=== PATIENT | male | born 1950 | race Caucasian/White ===

== ENCOUNTER 2020-06-29 11:59 | Outpatient (REF) | payer MEDICARE, MEDICAID, SELFPAY ==
[2020-06-29 12:58] LABS: Hematocrit 42.1 % (42-52); Hemoglobin 13.9 g/dl (14.0-18.0); Mean Corpuscular Hemoglobin 28.9 pg (27.0-33.0); Mean Corpuscular Volume 87.5 fL (80-98); Mean Platelet Volume 10.8 fL (9.4-12.4); Platelet Count 201 X10*3/uL (160-400); Red Blood Count 4.81 X10*6/uL (4.60-5.80); Red Cell Distribution Width 12.3 % (11.0-16.0); White Blood Count 7.9 X10*3/uL (4.8-10.8)
[2020-06-29 13:32] LABS: Alanine Aminotransferase < 6 U/L (0-40); Alkaline Phosphatase 55 U/L (39-117); Anion Gap 9 (12-20); Aspartate Amino Transferase 12 U/L (5-37); Bilirubin Direct 0.2 mg/dL (0.0-0.5); Bilirubin Total 0.4 mg/dL (0.0-1.0); Blood Urea Nitrogen 15 mg/dL (9-16); Calcium 8.7 mg/dL (8.4-10.2); Carbon Dioxide 30 mmol/L (22-29); Chloride 102 mmol/L (96-108); Cholesterol 166 mg/dL; Estimated Glomerular Filt Rate > 60; Glucose Random 77 mg/dL (60-115); HDL Cholesterol 41 mg/dL; LDL Cholesterol Calculated 105 mg/dl; Potassium 4.4 mmol/l (3.3-5.1); Sodium 137 mmol/L (135-145); Total Protein 6.3 g/dL (6.5-8.0); Triglycerides 104 mg/dL
== END 2020-06-29 12:00 | disposition home or self-care (01) ==
LOC: HO.LAB 11:59
PROVIDERS: PCP Internal Medicine; Visit Provider Internal Medicine
DX: G20 Parkinson's disease (principal)
CPT/HCPCS: 36415; 80048; 80061; 80076; 85027

== ENCOUNTER 2020-08-07 17:44 | Outpatient (REF) | payer MEDICARE, MEDICAID, SELFPAY | END 2020-08-07 17:45 | disposition home or self-care (01) | LOC: HO.LNP 17:44 | PROVIDERS: Visit Provider Family Medicine | DX: Z20.828 Contact with and (suspected) exposure to other viral communicable diseases (principal) | CPT/HCPCS: U0003 ==

== ENCOUNTER 2020-09-11 | Outpatient (REF) | payer MEDICARE, MEDICAID, SELFPAY ==
[2020-09-13 08:52] LABS: FIT1 NEGATIVE (NEGATIVE); FIT2 POSITIVE (NEGATIVE)
[2020-09-13 08:53] LABS: FIT Int Ctl YES
== END 2020-09-11 00:01 | disposition home or self-care (01) ==
LOC: HO.LNP
PROVIDERS: Visit Provider Internal Medicine Gastroenterology
DX: Z12.11 Encounter for screening for malignant neoplasm of colon (principal)
CPT/HCPCS: 82274

== ENCOUNTER → 2020-09-14 10:56 | Outpatient (BNVA) | payer MEDICARE, MEDICAID, SELFPAY | PROVIDERS: PCP Internal Medicine; Visit Provider Internal Medicine Gastroenterology | DX: Z13.89 Encounter for screening for other disorder (principal) | CPT/HCPCS: Q3014 ==

== ENCOUNTER 2020-10-10 10:27 | Day surgery (SDC) | payer MEDICARE, MEDICAID, SELFPAY ==
[2020-10-03 16:04] VITALS: BMI 34.5
--- NOTE | 2020-10-06 11:34 | HO.ANESPROP2 ---
Documented by User: Britta Shira 10/06/20 11:36 HPI - Anesthesia Eval Consult details Narrative: 70yo M for Upper Endoscopy and Colonoscopy [facility] Active Problems Active Problems: All Active Problems (Updated 10/03/20 @ 16:06 by Jenelle Gallardo) Close exposure to 2019 novel coronavirus (Acute) Chronic constipation (Acute) Colon cancer screening (Acute) Positive FIT (fecal immunochemical test) (Acute) Low back pain (Acute) Impotence (Acute) Anxiety and depression (Acute) Skin rash (Acute) Peripheral neuropathy (Acute) GERD (gastroesophageal reflux disease) (Acute) Past Medical History Medical History (Updated 10/07/20 @ 11:24 by Ventura Multani MD) Anxiety and depression Arthritis GERD (gastroesophageal reflux disease) History of alcohol abuse Hx of subdural hematoma Impotence Parkinson disease Peripheral neuropathy Sciatic pain Skin rash Tension headache Family History Family History Father Diabetes H/O heart bypass surgery Depression Mother Heart problem Depression Brother Hypertension Maternal Uncle Alcoholism Surgical History Surgical History (Updated 10/03/20 @ 14:01 by Jenelle Gallardo) History of bilateral cataract extraction History of DVT (deep vein thrombosis) History of inguinal hernia repair History of umbilical hernia repair Hx of colonoscopy Social History Social History Are you a primary managed care manager to a significant other at home: No Do you presently have visiting nurse or other home services: No Alcohol intake: former Year quit: 2017 Smoking Status: Never smoker Use of substances other than those prescribed or required for medical reasons: No Have you been hit, kicked, punched, or otherwise hurt by someone within the past year? If so, by whom?: No Advance Directives: No Advance Directives Information Provided: No Advance Directives on File: No Recently lost weight without trying: No Meds Allergies Allergy/AdvReac Type Severity Reaction Status Date / Time benztropine [Cogentin] AdvReac Unknown dizziness Verified 10/07/20 11:13 Home Medications Medication Instructions Recorded Confirmed Last Taken Type carbidopa 25 mg-levodopa 100 mg 1 tab PO TID 07/07/20 10/07/20 Unknown History tablet carbidopa ER 50 mg-levodopa 200 mg 1 tab PO TID 07/07/20 10/07/20 Unknown History tablet,extended release cyclobenzaprine 5 mg PO BID PRN 10/03/20 10/07/20 Unknown History pramipexole 0.75 mg tablet 0.75 mg PO TID tab 10/03/20 10/03/20 Unknown History Exam Exam Date and Time: October 06, 2020 1134 Height,Weight and Vital Signs: Height 6 ft Weight 115.666 kg Pertinent Lab Results Pertinent Lab Results: Laboratory Tests 06/29/20 06/29/20 12:15 12:15 WBC 7.9 Hgb 13.9 L Hct 42.1 Plt Count 201 Sodium 137 Potassium 4.4 Chloride 102 Carbon Dioxide 30 H BUN 15 Creatinine 1.07 Assessment and Plan Assessment Anesthesia Assessment: Chart Reviewed Documented by User: Divya Anti 10/10/20 11:19 [facility] Past Medical History Medical History (Updated 10/07/20 @ 11:24 by Ventura Multani MD) Anxiety and depression Arthritis GERD (gastroesophageal reflux disease) History of alcohol abuse Hx of subdural hematoma Impotence Parkinson disease Peripheral neuropathy Sciatic pain Skin rash Tension headache Family History Family History Father Diabetes H/O heart bypass surgery Depression Mother Heart problem Depression Brother Hypertension Maternal Uncle Alcoholism Surgical History Surgical History (Updated 10/03/20 @ 14:01 by Jenelle Gallardo) History of bilateral cataract extraction History of DVT (deep vein thrombosis) History of inguinal hernia repair History of umbilical hernia repair Hx of colonoscopy Social History Social History Are you a primary managed care manager to a significant other at home: No Do you presently have visiting nurse or other home services: No Alcohol intake: former Year quit: 2016 Smoking Status: Never smoker Use of substances other than those prescribed or required for medical reasons: No Have you been hit, kicked, punched, or otherwise hurt by someone within the past year? If so, by whom?: No Advance Directives: No Advance Directives Information Provided: No Advance Directives on File: No Recently lost weight without trying: No Meds Allergies Allergy/AdvReac Type Severity Reaction Status Date / Time benztropine [Cogentin] AdvReac Unknown dizziness Verified 10/07/20 11:13 Home Medications Medication Instructions Recorded Confirmed Last Taken Type carbidopa 25 mg-levodopa 100 mg 1 tab PO TID 07/07/20 10/07/20 Unknown History tablet carbidopa ER 50 mg-levodopa 200 mg 1 tab PO TID 07/07/20 10/07/20 Unknown History tablet,extended release cyclobenzaprine 5 mg PO BID PRN 10/03/20 10/07/20 Unknown History pramipexole 0.75 mg tablet 0.75 mg PO TID tab 10/03/20 10/03/20 Unknown History Exam Airway Mallampati Class: II (Edentulous) TM Dist: >3cm Neck ROM: Limited Denture: Upper and Lower Loose/Missing/Broken Teeth: Yes, Upper and Lower Heart: RRR Lungs: CTA Assessment and Plan Assessment Anesthesia Assessment: Anesthesia Plan Discussed and Chart Reviewed Final Anesthetic Review NPO: Yes ASA Class: III Final Preanesthetic Review: Meds/Allgs Chart Reviewed, Consent Obtained/Reviewed and Anes Risks/Benef Reviewed Patient Risk: Intermediate Procedure Risk: Intermediate Anesthetic Plan Anesthetic Plan: MAC: Disposition: Standard PACU
[2020-10-10 10:39] VITALS: BP 153/88; PULSE 91; RESP 18; TEMP 37.1; O2SAT 96; BMI 38.0
--- NOTE | 2020-10-10 11:00 | W.PM.OPN ---
Operative Note Operative Note Date of Service: 10/10/20 Narrative: Pre-op diagnosis: Colon cancer screening, Positive FIT test, chronic constipation, GERD, Post-op diagnosis: other (Erosive esophagitis, hiatal hernia, gastritis, hemorrhoids) Procedure: FLEXIBLE TRANSORAL UPPER GASTROINTESTINAL ENDOSCOPY WITH BIOPSIES AND COLONOSCOPY TILL HEPATIC FLEXURE UPPER ENDOSCOPY Consent: Indications for the procedure and potential complications of bleeding, perforation, reaction to medications and missed diagnosis were discussed with the patient and informed consent was obtained. Instrument: Olympus GIF H 190 mid size upper endoscope Monitoring: Vital signs and clinical assessment, continuous EKG monitoring, Pulse oximetry, Carbon Dioxide monitoring and blood pressure monitoring were done throughout the procedure. Procedure: The patient was placed in the left lateral decubitis position and pre-procedure medications were administered and a bite block was placed. The endoscope was inserted into the mouth and advanced under direct vision to the third part of duodenum. A careful inspection was made as the upper endoscope was withdrawn including a retroflexed examination of the proximal stomach; Findings and interventions are described below. Findings: Larynx: Normal Esophagus: Grade 3-4 erosive esophagitis from 32 to 42 cms. GE junction at 42 cms, hiatal hernia 42 to 44 cms. Stomach: Moderate diffuse gastric erythema. Biopsies were obtained from the gastric body and antrum. Grade 3 flap valve on retroflexed examination of the cardia. Duodenum: Normal bulb and descending duodenum Intervention: Biopsies as noted above COLONOSCOPY PROCEDURE NOTE Consent: Indications for the procedure and potential complications of bleeding, perforation, reaction to medications and missed diagnosis were discussed with the patient and informed consent was obtained. Instrument: Olympus PCF H 190 L variable stiffness pediatric colonoscope Monitoring: Vital signs and clinical assessment, intermittent blood pressure monitoring, continuous EKG monitoring, Pulse oximetry and Carbon Dioxide monitoring were done throughout the procedure. Colon withdrawl time was 15 minutes. Procedure: The patient was placed in the left lateral decubitis position and pre-procedure medications were administered. After a digital rectal examination of the ano-rectum, the video colonoscope was inserted into the rectum and advanced through the colon to the hepatic flexure. It was not possible to advance further due to poor prep with liquid and semi-solid stool blocking the lumen. The colonoscope was slowly withdrawn in a retrograde panoramic fashion and the colon mucosa was carefully examined including a retroflexed view of the rectum. Findings and interventions are described below. Procedure Difficulty: : Without difficulty Findings: Terminal Ileum: Not evaluated Cecum: Not evaluated due to poor prep Ascending Colon: Not evaluated due to poor prep Transverse Colon: Partially evaluated Descending Colon: Partially evaluated Sigmoid Colon: Partially evaluated Rectum: Partially evaluated Ano-rectum: Moderate internal hemorrhoids Colon preparation: Fair to poor. 60-65% of the mucosa was visualized. Impression and Post Procedure Diagnosis: Endoscopy Findings: ESOPHAGUS: Grade 3-4 erosive esophagitis from 32 to 42 cms. GE junction at 42 cms, hiatal hernia 42 to 44 cms. STOMACH: Diffuse moderate gastritis Colonoscopy Findings: No polyps were detected. Moderate hemorrhoids on retroflexed exam. Plan: Await pathology results Start Omeprazole 20 mg twice daily and stop Famotidine. Patient has an appointment on 10/16/20 in the GI Clinic with Gaurang Ackerman M.D. Repeat EGD in 3 months to FU on erosive esophagitis. I will schedule same day colonoscopy with 2 day prep and adult colonoscope due to poor prep. Above findings were reviewed with the patient and GERD handout was given in the discharge area Surgeon: Gaurang Ackerman MD Anesthesia: MAC (DIRECTOR INDUSTRIAL RELATIONS Cuff) Estimated blood loss (mL): 0 Pathology: other (a: gastric antrum bx's r/o h. pylori b: gastric body bx's) Condition: stable Disposition: PACU
--- NOTE | 2020-10-10 11:00 | MHC.SHP ---
Pre-Procedural Eval Section A The patient is an INPATIENT: No The History & Physical has been completed within 30 days and I have reviewed it.: No Section B Chief Complaint: screening,reflux disease Details of Present Illness: Trying to control constipation with diet - apples, spinach and broccoli. Having problems with GERD - has frequent hearburn and some regurgitation on bending. Feels it in his throat. Increased symptoms at night. Has been eating too much chocolate - has compulsion to eat at night. Takes TUMS occasionally. Relevant Family History (Specify if Yes): No Relevant Social History: Alcohol Use (past ETOH use, quitted in 2017) Present Medications: see Short Stay Collaborative assessment Medical History: Significant History (Anxiety and depression GERD (gastroesophageal reflux disease) Impotence Peripheral neuropathy Skin rash) History of Previous Operations: Relevant previous surgery/procedure and date(s) (History of DVT (deep vein thrombosis) History of inguinal hernia repair History of umbilical hernia repair) Allergies: Allergies Allergy/AdvReac Type Severity Reaction Status Date / Time benztropine [Cogentin] AdvReac Unknown dizziness Verified 10/07/20 11:13 Review of Systems Sugical H&P ROS: Negative: Constitution, Cardiovascular and Respiratory and Yes, Specify: Gastrointestinal (GERD, constipation) Exam Surgical H&P Exam: Normal: Heart, Normal: Lungs, Normal: Extremities and Normal: Abdomen Plan Diagnosis/Plan: Unchanged I have reviewed the history and physical and performed a pertinent physical examination on my patient. No changes have occurred unless specified.
--- NOTE | 2020-10-10 11:10 | PC.NURSE ---
VSS. PATIENT HAD AN ENEMA AND RESULTS WERE YELLOWISH CLEAR.
[2020-10-10] MEDS: Lactated Ringers 1,000 ML 50 ML IVCONT (11:23)
[2020-10-10] MEDS: Sodium Phosphate,Mono-Dibasic 133 ML ENEMA PR (11:27)
[2020-10-10 12:27] VITALS: BP 138/71; PULSE 77; RESP 20; TEMP 36.4; O2SAT 98
[2020-10-10 12:48] VITALS: BP 163/94; PULSE 85; RESP 18; TEMP 36.4; O2SAT 97
[2020-10-10 13:04] VITALS: BP 177/89; PULSE 85; RESP 16; TEMP 36.4; O2SAT 97
== END 2020-10-10 13:30 | disposition home or self-care (01) ==
PROVIDERS: PCP Internal Medicine; Visit Provider Internal Medicine Gastroenterology
PROC: (CPT 43239; principal; 2020-10-10 11:40)
DX: Z12.11 Encounter for screening for malignant neoplasm of colon (principal); K59.09 Other constipation; K64.8 Other hemorrhoids; K22.10 Ulcer of esophagus without bleeding; K29.70 Gastritis, unspecified, without bleeding; K44.9 Diaphragmatic hernia without obstruction or gangrene; K21.9 Gastro-esophageal reflux disease without esophagitis; Z88.8 Allergy status to other drugs, medicaments and biological substances; Z91.19 Patient's noncompliance with other medical treatment and regimen
CPT/HCPCS: 43239; G0121; 88305; 88342

== ENCOUNTER → 2020-10-16 14:07 | Outpatient (BNVA) | payer MEDICARE, MEDICAID, SELFPAY | PROVIDERS: PCP Internal Medicine; Visit Provider Internal Medicine Gastroenterology | CPT/HCPCS: Q3014 ==

== ENCOUNTER → 2020-11-24 09:25 | Outpatient (BNVA) | payer MEDICARE, MEDICAID, SELFPAY | PROVIDERS: Visit Provider Urology | DX: N52.9 Male erectile dysfunction, unspecified (principal); N43.3 Hydrocele, unspecified | CPT/HCPCS: 99202 ==

== ENCOUNTER 2020-12-29 12:00 | Outpatient (RCR) | payer MEDICARE, MEDICAID, SELFPAY ==
--- NOTE | 2020-10-17 12:27 | MHC.PT.EP ---
[facility] [place] [facility] [place] Office [place] Office [address] Shara Booth [address] [phone] F: [phone] F: [phone] F: [phone] F: [phone] Physical Therapy Plan of Care Date of Evaluation: 10/17/20 Date of Surgery: Diagnosis: Low back pain w/ radiating symptoms down the left leg Assessment: Pt is a 70 y/o male referred to skilled PT for low back pain. Pt reports left sided buttocks pain with occasional radiating pain into the left lateral leg and foot. Assessment reveals impaired lumbar and hip range of motion, decreased thoracolumbar spinal mobility, decreased strength, impaired posture, gait deviations, balance deficits, and muscle length deficits. Related functional limitations include: difficulty sleeping, standing/walking/sitting for an extended period of time, transitioning from sit<>stand after sitting for an extended period of time, and performing functional squats. Pt will benefit from skilled PT services 2x/week for 5 weeks in order to reduce impairments and improve limitations. Frequency and Duration: The patient will be seen 2x/week for 5 weeks Short Term Goals: -In 2 weeks, Pt to improve HS length by at least 10 degrees. -In 3 weeks, Pt to improve L hip ER ROM by at least 8 degrees. Shelter Goals: -In 4 weeks, Pt to self report at least 50% improvement from baseline. -In 5 weeks, Pt to demonstrate I w/ HEP. Treatment Plan: Modalities to reduce pain, spasms and effusion. Manual therapy to restore motion and function. Therapeutic exercise to improve strength and flexibility. Neuromuscular re-education for posture and balance. Therapeutic activities to return to functional activities of daily living. Electronically signed by: Yaz Gage PT, DPT Please sign and return to therapist. Thank you for your referral.
--- NOTE | 2020-12-29 14:29 | MHC.PT.DC ---
[facility] [place] Office [place] Office [place] Office [address] Shara Booth [address] [facility] [phone] F: [phone] F: [phone] F: [phone] F: [phone] Physical Therapy Discharge Report Diagnosis: Low back pain w/ radiating symptoms down the left leg Date of Surgery: Date of Evaluation: 10/17/20 Date of Discharge: 12/29/20 Treatments to Date: 16 Cancellations to Date: 0 No Shows to Date: 0 Discharge Status: Achieved Goals Improved Function Independent with HEP Discharge Summary: Evelio has completed 16 PT visits at this time. He presented with increased postural awareness today, increased balance compared to IE. He is independent with all HEPs and is able to manage his symptoms with them. Pt therefore d/c from therapy today. Electronically signed by: Eri Finn, PT, DPT Please sign and return to therapist. Thank you for your referral.
== END 2020-12-29 14:30 | disposition other institution (70) ==
LOC: HO.PT 12:00
PROVIDERS: PCP Internal Medicine; Visit Provider Internal Medicine
DX: M54.5 Low back pain (principal)
CPT/HCPCS: 97110; 97112; 97140; 97162; 97530

== ENCOUNTER → 2021-02-23 11:19 | Outpatient (BNVA) | payer MEDICARE, MEDICAID, SELFPAY | PROVIDERS: PCP Internal Medicine; Visit Provider Urology | DX: N52.9 Male erectile dysfunction, unspecified (principal); N43.3 Hydrocele, unspecified; R32 Unspecified urinary incontinence; G20 Parkinson's disease; F10.11 Alcohol abuse, in remission | CPT/HCPCS: 51798; 99212 ==

== ENCOUNTER 2021-03-12 04:27 | Inpatient (IN) | payer MEDICARE, MEDICAID, SELFPAY ==
[2021-03-12] VITALS (14 sets, daily range): BP systolic 123–177; BP diastolic 59–94; PULSE 75–96; RESP 14–20; TEMP 36–37.3; O2SAT 93–99; BMI 35.3
--- NOTE | ~2021-03-12 | US_ITS ---
EXAMINATION: US ABDOMEN LIMITED CLINICAL INFORMATION: Right upper quadrant pain, rule out cholecystitis. COMPARISON: None TECHNIQUE: Real-time imaging of the right upper quadrant abdominal viscera. FINDINGS: PANCREAS: Visualized portions unremarkable. LIVER: Unremarkable. GALLBLADDER: Multiple gallstones measuring up to 1.8 cm. Minimal mural thickening and pericholecystic fluid. COMMON BILE DUCT: Normal in caliber measuring 0.8 cm in diameter. RIGHT KIDNEY: 10.9 cm. Unremarkable. FREE FLUID: None. US/US abdomen limited IMPRESSION: Cholelithiasis without evidence for mild acute/developing cholecystitis.
[2021-03-12 05:59] LABS: Basophils Percent Auto 0.2 % (0-2); Eosinophils Absolute Auto 0.2 X10*3/uL (0.0-0.4); Eosinophils Percent Auto 1.9 % (0-4); Hematocrit 43.8 % (42-52); Hemoglobin 14.4 g/dl (14.0-18.0); Imm Gran Abs Auto 0.04 X10*3/uL (0.00-0.03); Imm Gran Pct Auto 0.4 % (0.0-0.4); Lymphocytes Absolute Auto 0.8 X10*3/uL (1.2-4.9); Lymphocytes Percent Auto 8.7 % (20-40); MANUAL DIFF FLAG NO; Mean Corpuscular HGB Conc 32.9 g/dl (31.0-36.0); Mean Corpuscular Hemoglobin 27.6 pg (27.0-33.0); Mean Corpuscular Volume 83.9 fL (80-98); Mean Platelet Volume 10.7 fL (9.4-12.4); Monocytes Absolute Auto 0.5 X10*3/uL (0.1-1.2); Monocytes Percent Auto 5.5 % (2-11); Neutrophils Absolute Auto 7.8 X10*3/uL (2.0-8.3); Neutrophils Percent Auto 83.3 % (45-73); Platelet Count 149 X10*3/uL (160-400); Red Blood Count 5.22 X10*6/uL (4.60-5.80); Red Cell Distribution Width 12.1 % (11.0-16.0); White Blood Count 9.4 X10*3/uL (4.8-10.8)
[2021-03-12 06:24] LABS: Alanine Aminotransferase 30 U/L (0-40); Albumin Level 4.1 g/dL (3.5-5.0); Alkaline Phosphatase 137 U/L (39-117); Anion Gap 11 (12-20); Aspartate Amino Transferase 379 U/L (5-37); Bilirubin Direct 1.9 mg/dL (0.0-0.5); Bilirubin Total 2.9 mg/dL (0.0-1.0); Blood Urea Nitrogen 15 mg/dL (9-16); Calcium 9.5 mg/dL (8.4-10.2); Carbon Dioxide 27 mmol/L (22-29); Chloride 104 mmol/L (96-108); Estimated Glomerular Filt Rate > 60; Glucose Random 131 mg/dL (60-115); Lipase 29 U/L (8-78); Potassium 4.7 mmol/L (3.3-5.1); Sodium 137 mmol/L (135-145); Total Protein 6.7 g/dL (6.5-8.0)
--- NOTE | 2021-03-12 06:58 | ED.ABDPAIN ---
HPI - Abdominal Pain General Chief Complaint: Abdominal Pain Stated Complaint: ABD PAIN Time Seen by Provider: 03/12/21 06:43 Source: patient Mode of arrival: ambulatory Limitations: no limitations History of Present Illness HPI narrative: Patient comes emergency room complaining of 18 hours of right upper quadrant pain. Patient states that initially he had intermittent pain in the right upper quadrant for about 9 hours, then it became constant for last 9 hours. Patient denies vomiting or diarrhea, states he is chronically constipated due to his history of Parkinson's. Patient denies fever or chills. Last time patient ate was yesterday at 21:00 Related Data Home Medications Medication Instructions Recorded Confirmed carbidopa 25 mg-levodopa 100 mg 1 tab PO TID 07/07/20 03/12/21 tablet carbidopa ER 50 mg-levodopa 200 mg 1 tab PO TID 07/07/20 03/12/21 tablet,extended release pramipexole 0.75 mg tablet 0.75 mg PO TID tab 10/03/20 03/12/21 tadalafil 10 mg PO DAILY PRN 03/12/21 03/12/21 Previous Rx's Medication Instructions Recorded fluoxetine 40 mg capsule 40 mg PO DAILY #90 cap 10/03/20 omeprazole 20 mg capsule,delayed 20 mg PO DAILY #90 cap 12/21/20 release meloxicam 15 mg tablet 15 mg PO DAILY #30 tab 12/28/20 bupropion HCl 150 mg 24 hr tablet, 150 mg PO BID 90 Days #180 tab 02/21/21 extended release sildenafil 100 mg tablet 100 mg PO DAILY PRN 30 Days #30 tab 02/23/21 diazepam 5 mg tablet 5 mg PO TID PRN 30 Days #90 tab 03/09/21 Allergies Allergy/AdvReac Type Severity Reaction Status Date / Time benztropine [Cogentin] AdvReac Unknown dizziness Verified 12/26/20 12:55 Review of Systems Review of Systems Constitutional : No Weight loss, No Fever, No Chills, No Night Sweats, No Fatigue, No Malaise ENT/Mouth : No Hearing loss, No Ear Pain, No Nasal Congestion, No Sinus Pain, No Hoarseness, No sore throat, No Rhinorrhea, No Swallowing Difficulty Eyes: No Eye Pain, No Swelling, No Redness, No Foreign Body, No Discharge, No Vision Changes Cardiovascular : No Chest Pain, No SOB, No Dyspnea on Exertion, No Orthopnea, No Edema, No Palpitations Respiratory : No Cough, No Sputum, No Wheezing, No Smoke Exposure, No Dyspnea Gastrointestinal : No Nausea, No Vomiting, No Diarrhea, No Constipation, complaining of right upper quadrant pain, No Hematochezia, No Melena Genitourinary : no irregular bleeding, No Dysuria, No Urinary Frequency, No Hematuria, No Urinary Incontinence, No Urgency, No Flank Pain, No Urinary Flow Changes, No Hesitancy Musculoskeletal : No joint pain, No Myalgias, No Joint Swelling Skin : No Skin Lesions, No rash Neuro : No Weakness, No Numbness, No Paresthesias, No Loss of Consciousness, No Dizziness, No Headache Psych : No Anxiety/Panic, No Depression, No SI/HI/AH/VH, No Social Issues, Heme/Lymph: No Bruising, No Bleeding,No Lymphadenopathy Endocrine : No Polyuria, No Polydipsia, No Temperature Intolerance Physical Exam Vital Signs: Vital Signs: Last Vital Signs Temp 98.0 F 03/12/21 05:18 Pulse 83 03/12/21 09:30 Resp 18 03/12/21 09:30 BP 169/84 H 03/12/21 09:30 Pulse Ox 98 03/12/21 09:30 Body Mass Index 35.3 Appearance: Alert. Oriented X3. No acute distress. Eyes: Pupils equal, round and reactive to light. ENT: Pharynx normal. Neck: Normal inspection. Neck supple. No lymph nodes noted. No crepitus CVS: Normal heart rate and rhythm. Pulses normal. Normal S1 and S2 Respiratory: No respiratory distress. Breath sounds normal. No Wheezing. No rales Abdomen: Soft, tenderness to palpation over the right upper quadrant, negative Douglas sign, no guarding, No rigidity. No distention Skin: Skin warm and dry. Normal skin color. Normal skin turgor. Extremities: No lower extremity edema. No lower extremity edema. No Lacerations. No Rash Neuro: Oriented X 3. No motor deficit. No sensory deficit. Moving all extermities. No slurred speech. Course Course Course Narrative: Despite the ultrasound read, I do believe that the patient has acute cholecystitis. Dr. Wilson being consulted. Patient received 1 dose of morphine, patient initially started feeling well but the pain returned to 8/10 within a few minutes. I discussed the patient with Dr. Wilson, patient will likely be going to the OR today MDM - Abdominal Pain Lab Data Result diagrams: 03/12/21 05:55 03/12/21 05:55 Labs: Lab Results 03/12/21 03/12/21 03/12/21 Range/Units 05:55 05:55 05:55 WBC 9.4 (4.8-10.8) X10*3/uL RBC 5.22 (4.60-5.80) X10*6/uL Hgb 14.4 (14.0-18.0) g/dl Hct 43.8 (42-52) % MCV 83.9 (80-98) fL MCH 27.6 (27.0-33.0) pg MCHC 32.9 (31.0-36.0) g/dl RDW 12.1 (11.0-16.0) % Plt Count 149 L D (160-400) X10*3/uL MPV 10.7 (9.4-12.4) fL Immature Gran % (Auto) 0.4 (0.0-0.4) % Neut % (Auto) 83.3 H (45-73) % Lymph % (Auto) 8.7 L (20-40) % [place] % (Auto) 5.5 (2-11) % Eos % (Auto) 1.9 (0-4) % Baso % (Auto) 0.2 (0-2) % Lymph # (Auto) 0.8 L (1.2-4.9) X10*3/uL [place] # (Auto) 0.5 (0.1-1.2) X10*3/uL Eos # (Auto) 0.2 (0.0-0.4) X10*3/uL Baso # (Auto) 0.0 (0.0-0.2) X10*3/uL Abs Immat Gran (auto) 0.04 H (0.00-0.03) X10*3/uL Absolute Neuts (auto) 7.8 (2.0-8.3) X10*3/uL Absolute Nucleated RBC 0.000 (0.0-0.012) X10*3/uL Nucleated RBC % (auto) 0.0 (0.0-0.2) /100WBC Sodium 137 (135-145) mmol/L Potassium 4.7 (3.3-5.1) mmol/L Chloride 104 (96-108) mmol/L Carbon Dioxide 27 (22-29) mmol/L Anion Gap 11 L (12-20) BUN 15 (9-16) mg/dL Creatinine 1.13 (0.5-1.4) mg/dL Estim Creat Clear Calc 83.0 Estimated GFR > 60 Random Glucose 131 H D (60-115) mg/dL Calcium 9.5 D (8.4-10.2) mg/dL Total Bilirubin 2.9 H (0.0-1.0) mg/dL Direct Bilirubin 1.9 H (0.0-0.5) mg/dL AST 379 H (5-37) U/L ALT 30 (0-40) U/L Alkaline Phosphatase 137 H D (39-117) U/L B-Natriuretic Peptide 47 (<100) pg/mL Total Protein 6.7 (6.5-8.0) g/dL Albumin 4.1 (3.5-5.0) g/dL Lipase 29 (8-78) U/L Urine Color Urine Appearance Urine pH (5.0-8.0) Ur Specific [place] (1.005-1.025) Urine Protein (NEG-TRACE) MG/DL Urine Glucose (UA) (NEG) MG/DL Urine Ketones (NEG) MG/DL Urine Blood (NEG) Urine Nitrite (NEG) Ur Leukocyte Esterase (NEG) 03/12/21 Range/Units 08:34 WBC (4.8-10.8) X10*3/uL RBC (4.60-5.80) X10*6/uL Hgb (14.0-18.0) g/dl Hct (42-52) % MCV (80-98) fL MCH (27.0-33.0) pg MCHC (31.0-36.0) g/dl RDW (11.0-16.0) % Plt Count (160-400) X10*3/uL MPV (9.4-12.4) fL Immature Gran % (Auto) (0.0-0.4) % Neut % (Auto) (45-73) % Lymph % (Auto) (20-40) % [place] % (Auto) (2-11) % Eos % (Auto) (0-4) % Baso % (Auto) (0-2) % Lymph # (Auto) (1.2-4.9) X10*3/uL [place] # (Auto) (0.1-1.2) X10*3/uL Eos # (Auto) (0.0-0.4) X10*3/uL Baso # (Auto) (0.0-0.2) X10*3/uL Abs Immat Gran (auto) (0.00-0.03) X10*3/uL Absolute Neuts (auto) (2.0-8.3) X10*3/uL Absolute Nucleated RBC (0.0-0.012) X10*3/uL Nucleated RBC % (auto) (0.0-0.2) /100WBC Sodium (135-145) mmol/L Potassium (3.3-5.1) mmol/L Chloride (96-108) mmol/L Carbon Dioxide (22-29) mmol/L Anion Gap (12-20) BUN (9-16) mg/dL Creatinine (0.5-1.4) mg/dL Estim Creat Clear Calc Estimated GFR Random Glucose (60-115) mg/dL Calcium (8.4-10.2) mg/dL Total Bilirubin (0.0-1.0) mg/dL Direct Bilirubin (0.0-0.5) mg/dL AST (5-37) U/L ALT (0-40) U/L Alkaline Phosphatase (39-117) U/L B-Natriuretic Peptide (<100) pg/mL Total Protein (6.5-8.0) g/dL Albumin (3.5-5.0) g/dL Lipase (8-78) U/L Urine Color YELLOW Urine Appearance CLEAR Urine pH 6.0 (5.0-8.0) Ur Specific [place] <= 1.005 (1.005-1.025) Urine Protein NEG (NEG-TRACE) MG/DL Urine Glucose (UA) NEG (NEG) MG/DL Urine Ketones NEG (NEG) MG/DL Urine Blood NEG (NEG) Urine Nitrite NEG (NEG) Ur Leukocyte Esterase NEG (NEG) Discharge Plan Discharge Clinical Impression: Acute cholecystitis Patient Disposition: Admitted As Inpatient [facility] Past Medical History Medical History Anxiety and depression Arthritis GERD (gastroesophageal reflux disease) History of alcohol abuse Hx of subdural hematoma Impotence Left hip pain Parkinson disease Peripheral neuropathy Sciatic pain Skin rash Tension headache Surgical History History of bilateral cataract extraction History of DVT (deep vein thrombosis) History of esophagogastroduodenoscopy (EGD) History of inguinal hernia repair History of umbilical hernia repair Hx of colonoscopy Family History Family History Father Diabetes H/O heart bypass surgery Depression Mother Heart problem Depression Brother Hypertension Maternal Uncle Alcoholism Social History Social History Household Members: Friend(s) Are you a primary home care scheduler to a significant other at home: No Do you presently have visiting nurse or other home services: No Alcohol intake: former Year quit: 2017 Patient Tobacco Use Status: Never used Tobacco Use of substances other than those prescribed or required for medical reasons: No Advance Directives: No Advance Directives Information Provided: No
[2021-03-12] MEDS: ondansetron HCL 4 MG/2 ML VIAL IVPUSH (07:13)
[2021-03-12] MEDS: 0.9 % Sodium Chloride 1,000 ML 999 ML IVCONT (07:13)
[2021-03-12] MEDS: Morphine Sulfate 4 MG/ML CARTRIDGE IVPUSH (07:14)
--- NOTE | 2021-03-12 07:19 | PC.NURSE ---
IV placed. Pt medicated for pain and nausea. ivf given at this time as well. PT is awaiting ultrasound.
[2021-03-12 07:30] LABS: B Type Natriuretic Peptide 47 pg/mL (<100)
[2021-03-12 08:43] LABS: Appearance Urine CLEAR; Color Urine YELLOW; Glucose Urine UA NEG (NEG); Leukocyte Esterase Urine NEG (NEG); Nitrite Urine NEG (NEG); Specific Gravity - Urine <= 1.005 (1.005-1.025); Urine Blood NEG (NEG); Urine Ketones NEG (NEG); Urine Protein NEG (NEG-TRACE)
[2021-03-12 10:33] LABS: COVID-19 Test Negative (Negative); IDNOW Serial# 9DD0AD1C
--- NOTE | 2021-03-12 10:36 | PC.NURSE ---
Report given to [facility]. Plan to go to [facility] at 11:15. Pt aware of plan.
--- NOTE | 2021-03-12 10:38 | PM.HPGS ---
History of Present Illness History of Present Illness Date of Service: 03/12/21 Chief complaint: acute cholesydtitis,cholelithiasis Narrative: Evelio Haynes is a 70 year old male who was feeling well during the day yesterday, but in the evening, after eating a cheese [place], he had acute onset of severe and worsening right upper quadrant abdominal pain. He did not experience fever, chills, nausea or vomiting. Because the pain was persistent and worsening, he elected to come to the emergency room early this morning for further evaluation. Workup revealed gallstones without clear evidence of acute cholecystitis. Liver function studies were elevated, total bilirubin 2.9, AST 379 and alkaline phosphatase 137.liver function studies have been normal in the past. He received morphine in the emergency department with mild improvement, but had persistent pain and tenderness. Findings are felt to be consistent with early acute cholecystitis. Review of Systems Constitutional: Constitutional: Denies anorexia, Denies chills, Denies fever(s) and Reports headache(s) Eyes: Eyes: Reports requires corrective lenses ENT: Reports Normal hearing present, Denies dysphagia, Reports headache(s) and Reports disequilibrium Cardiovascular: Cardiovascular: Reports chest pain (Workup negative), Reports irregular heart rhythm and Reports dyspnea on exertion Respiratory: Respiratory: Denies cough, Reports dyspnea on exertion and Denies wheezing Gastrointestinal: Gastrointestinal: Reports as per HPI, Reports constipation and Denies dysphagia Genitourinary: Genitourinary: Reports erectile dysfunction and Reports scrotal swelling (Right hydrocele, surgery scheduled) Musculoskeletal: Musculoskeletal: Reports abnormal gait and Reports stiffness Neurologic: Reports Normal hearing present, Reports abnormal gait, Reports headache(s), Reports radicular pain (Left hip and leg), Reports tremor(s) and Reports disequilibrium Hematologic/Lymphatic: Hematologic/Lymphatic: Denies easy bleeding Comments: History of DVT Allergic/Immunologic: Allergic/Immunologic: Denies wheezing PMFSH Past Medical History Medical History Anxiety and depression Arthritis GERD (gastroesophageal reflux disease) History of alcohol abuse Hx of subdural hematoma Impotence Left hip pain Parkinson disease Peripheral neuropathy Sciatic pain Skin rash Tension headache Family History Family History Father Diabetes H/O heart bypass surgery Depression Mother Heart problem Depression Brother Hypertension Maternal Uncle Alcoholism Surgical History Surgical History History of bilateral cataract extraction History of DVT (deep vein thrombosis) History of esophagogastroduodenoscopy (EGD) History of inguinal hernia repair History of umbilical hernia repair Hx of colonoscopy Social History Social History Household Members: Friend(s) Are you a primary child care specialist to a significant other at home: No Do you presently have visiting nurse or other home services: No Alcohol intake: former Year quit: 2017 Patient Tobacco Use Status: Never used Tobacco Use of substances other than those prescribed or required for medical reasons: No Advance Directives: No Advance Directives Information Provided: No Meds Allergies Allergy/AdvReac Type Severity Reaction Status Date / Time benztropine [Cogentin] AdvReac Unknown dizziness Verified 12/26/20 12:55 Active Medications: Current Medications Generic Name Dose Route Start Last Admin Trade Name Freq PRN Reason Stop Dose Admin Piperacillin Sod/Tazobactam 50 mls @ 100 mls/hr 03/12/21 10:12 Sod 3.375 gm/ Sodium Chloride IV 03/12/21 10:41 ONCE ONE Pharmacy Consult 1 each 03/12/21 09:40 Consult Rx Perform Med Rec MISCELLANE ONCE PRN Consult order Home Medications Medication Instructions Recorded Confirmed Last Taken Type carbidopa 25 mg-levodopa 100 mg 1 tab PO TID 07/07/20 03/12/21 03/11/21 History tablet carbidopa ER 50 mg-levodopa 200 mg 1 tab PO TID 07/07/20 03/12/21 03/11/21 History tablet,extended release pramipexole 0.75 mg tablet 0.75 mg PO TID tab 10/03/20 03/12/21 03/11/21 History enffbhcaykne-kutblvjg-[id number] 1 tab PO DAILY 03/12/21 03/12/21 Unknown History [Centrum Silver] Physical Exam Vital Signs: Vital Signs: Last Vital Signs Temp 98.0 F 03/12/21 05:18 Pulse 83 03/12/21 09:30 Resp 18 03/12/21 09:30 BP 169/84 H 03/12/21 09:30 Pulse Ox 98 03/12/21 09:30 Body Mass Index 35.3 Const: General: cooperative, no acute distress and alert HENMT: Head: Yes normocephalic and Yes atraumatic Eyes: General: appearance normal, both eyes and all related structures Resp: Effort & Inspection: normal respiratory effort Auscultation: clear to auscultation bilaterally Cardio: Rate: regular rate Rhythm: regular rhythm GI: Other: Round, soft, bowel sounds active, no organomegaly, tender right upper quadrant, positive Douglas sign Rectal Exam - Male: Yes deferred Skin: Other: Normal color, warm and dry Neuro: Cranial nerves: Yes Normal hearing present Extrem: Right lower extremity: edema Left lower extremity: edema Results Results Labs: Short CBC 03/12/21 Range/Units 05:55 WBC 9.4 (4.8-10.8) X10*3/uL Hgb 14.4 (14.0-18.0) g/dl Hct 43.8 (42-52) % Plt Count 149 L D (160-400) X10*3/uL BMP 03/12/21 05:55 Sodium 137 Potassium 4.7 Chloride 104 Carbon Dioxide 27 BUN 15 Creatinine 1.13 Calcium 9.5 D Liver Function 03/12/21 Range/Units 05:55 Total Bilirubin 2.9 H (0.0-1.0) mg/dL Direct Bilirubin 1.9 H (0.0-0.5) mg/dL AST 379 H (5-37) U/L ALT 30 (0-40) U/L Alkaline Phosphatase 137 H D (39-117) U/L Albumin 4.1 (3.5-5.0) g/dL Urine 03/12/21 Range/Units 08:34 Urine Color YELLOW Urine Appearance CLEAR Urine pH 6.0 (5.0-8.0) Ur Specific [place] <= 1.005 (1.005-1.025) Urine Protein NEG (NEG-TRACE) MG/DL Urine Glucose (UA) NEG (NEG) MG/DL Assessment and Plan (1) Acute cholecystitis: Status: Acute (2) Parkinson disease: Status: Acute 70-year-old male presenting with persistent right upper quadrant pain and tenderness, ultrasound imaging findings demonstrating cholelithiasis, elevated LFTs, findings consistent with early acute cholecystitis and cholelithiasis. We discussed treatment options including a conservative management with antibiotics, bowel rest and observation, or surgical treatment, laparoscopic cholecystectomy with potential need to convert to open cholecystectomy. We reviewed the anticipated course of recovery and surgical risks including but not limited to infection, bleeding, DVT and PE, chronic loose stools, retained stones, injuries to adjacent structures including bile ducts potentially requiring further surgery. He has elected to proceed with surgery and that has been scheduled for later today. He has a history of Parkinson's disease. Usual medications will be continued. He also has a history of DVT. VT prophylaxis will be with compression boots and subcu heparin. Quality Stroke Does the patient have a stroke diagnosis?: No VTE Prior VTE?: Yes VTE Risk Level:: Surgical - high VTE Device Contraindication: N/A - Device Ordered VTE Drug Contraindication: N/A - Med Ordered Procedures Date of Service Date of Service: 03/12/21
--- NOTE | 2021-03-12 11:11 | PHA.MEDREC ---
Pharmacy Consult ? Medication Reconciliation Pharmacy has completed the medication reconciliation. There are no remarkable issues for provider's attention. Jessica Gupta, RickyD
[2021-03-12] MEDS: Carbidopa/Levodopa 25/100 TABLET 1 TAB PO ×2 (11:14→20:37)
[2021-03-12] MEDS: Piperacillin Sodium/Tazobactam 3.375 GM in 0.9 % Sodium Chloride 50 ML IV (11:14)
[2021-03-12] MEDS: Heparin Sodium,Porcine 5,000 UNIT/ML VIAL 5000 UNIT SUBCUT ×2 (11:44→17:25)
--- NOTE | 2021-03-12 11:44 | PC.NURSE ---
Heparin order verified with to be given now
--- NOTE | 2021-03-12 11:46 | PC.NURSE ---
Patient is resting quietly in bed with eyes closed in no acute distress
--- NOTE | 2021-03-12 12:42 | MHC.SHP ---
Pre-Procedural Eval Section A Date of Service: 03/12/21 The patient is an INPATIENT: Yes The History & Physical has been completed within 30 days and I have reviewed it.: Yes Section B Chief Complaint: acute cholesydtitis,cholelithiasis Allergies: Allergies Allergy/AdvReac Type Severity Reaction Status Date / Time benztropine [Cogentin] AdvReac Unknown dizziness Verified 12/26/20 12:55 Plan Diagnosis/Plan: Unchanged I have reviewed the history and physical and performed a pertinent physical examination on my patient. No changes have occurred unless specified.
--- NOTE | 2021-03-12 12:46 | HO.ANESPROP2 ---
HPI - Anesthesia Eval Consult details Narrative: abdominal pain PMFSH Active Problems Active Problems: All Active Problems (Updated 03/12/21 @ 10:12 by Daniella Sen MD) Acute cholecystitis (Acute) Injury of nail (Acute) Left hip pain (Acute) Erectile dysfunction (Acute) Hydrocele (Acute) Annual physical exam (Acute) Hiatal hernia (Acute) GERD with esophagitis (Acute) Parkinson disease (Acute) Close exposure to 2019 novel coronavirus (Acute) Chronic constipation (Acute) Colon cancer screening (Acute) Positive FIT (fecal immunochemical test) (Acute) Low back pain (Acute) Impotence (Acute) Anxiety and depression (Acute) Skin rash (Acute) Peripheral neuropathy (Acute) GERD (gastroesophageal reflux disease) (Acute) Past Medical History Medical History Anxiety and depression Arthritis GERD (gastroesophageal reflux disease) History of alcohol abuse Hx of subdural hematoma Impotence Left hip pain Parkinson disease Peripheral neuropathy Sciatic pain Skin rash Tension headache Family History Family History Father Diabetes H/O heart bypass surgery Depression Mother Heart problem Depression Brother Hypertension Maternal Uncle Alcoholism Surgical History Surgical History History of bilateral cataract extraction History of DVT (deep vein thrombosis) History of esophagogastroduodenoscopy (EGD) History of inguinal hernia repair History of umbilical hernia repair Hx of colonoscopy Social History Social History Household Members: Friend(s) Are you a primary rn coronary care unit to a significant other at home: No Do you presently have visiting nurse or other home services: No Alcohol intake: former Year quit: 2017 Patient Tobacco Use Status: Never used Tobacco Meds Allergies Allergy/AdvReac Type Severity Reaction Status Date / Time benztropine [Cogentin] AdvReac Unknown dizziness Verified 12/26/20 12:55 Active Medications: Current Medications Generic Name Dose Route Start Last Admin Trade Name Freq PRN Reason Stop Dose Admin Levofloxacin 500 mg in 100 mls @ 100 mls/hr 03/12/21 12:24 Levaquin IV 03/12/21 13:23 PREOP ONE Omeprazole 20 mg 03/12/21 10:45 03/12/21 11:15 Omeprazole 20 Mg Capsule.Dr ARREOLA Not Given DAILY@0630 [facility] Pharmacy Consult 1 each 03/12/21 09:40 Consult Rx Perform Med Rec MISCELLANE ONCE PRN Consult order Home Medications Medication Instructions Recorded Confirmed Last Taken Type carbidopa 25 mg-levodopa 100 mg 1 tab PO TID 07/07/20 03/12/21 03/11/21 History tablet carbidopa ER 50 mg-levodopa 200 mg 1 tab PO TID 07/07/20 03/12/21 03/11/21 History tablet,extended release pramipexole 0.75 mg tablet 0.75 mg PO TID tab 10/03/20 03/12/21 03/11/21 History aywifktkyjev-gkeneias-pcxgeb 1 tab PO DAILY 03/12/21 03/12/21 Unknown History [Centrum Silver] Exam Exam Date and Time: March 12, 2021 1246 Height,Weight and Vital Signs: Height 6 ft Weight 118.12 kg Last Vital Signs Temp 98.0 F 03/12/21 05:18 Pulse 83 03/12/21 09:30 Resp 18 03/12/21 09:30 BP 169/84 H 03/12/21 09:30 Pulse Ox 98 03/12/21 09:30 Pertinent Lab Results Pertinent Lab Results: Laboratory Tests 03/12/21 03/12/21 03/12/21 05:55 05:55 05:55 WBC 9.4 RBC 5.22 Hgb 14.4 Hct 43.8 MCV 83.9 MCH 27.6 MCHC 32.9 RDW 12.1 Plt Count 149 L D MPV 10.7 Immature Gran % (Auto) 0.4 Neut % (Auto) 83.3 H Lymph % (Auto) 8.7 L [place] % (Auto) 5.5 Eos % (Auto) 1.9 Baso % (Auto) 0.2 Lymph # (Auto) 0.8 L [place] # (Auto) 0.5 Eos # (Auto) 0.2 Baso # (Auto) 0.0 Abs Immat Gran (auto) 0.04 H Absolute Neuts (auto) 7.8 Absolute Nucleated RBC 0.000 Nucleated RBC % (auto) 0.0 Sodium 137 Potassium 4.7 Chloride 104 Carbon Dioxide 27 Anion Gap 11 L BUN 15 Creatinine 1.13 Estim Creat Clear Calc 83.0 Estimated GFR > 60 Random Glucose 131 H D Calcium 9.5 D Total Bilirubin 2.9 H Direct Bilirubin 1.9 H AST 379 H ALT 30 Alkaline Phosphatase 137 H D B-Natriuretic Peptide 47 Total Protein 6.7 Albumin 4.1 Lipase 29 Urine Color Urine Appearance Urine pH Ur Specific [place] Urine Protein Urine Glucose (UA) Urine Ketones Urine Blood Urine Nitrite Ur Leukocyte Esterase COVID-19 (DB) COVID-19 Clin Com 03/12/21 03/12/21 08:34 10:14 WBC RBC Hgb Hct MCV MCH MCHC RDW Plt Count MPV Immature Gran % (Auto) Neut % (Auto) Lymph % (Auto) [place] % (Auto) Eos % (Auto) Baso % (Auto) Lymph # (Auto) [place] # (Auto) Eos # (Auto) Baso # (Auto) Abs Immat Gran (auto) Absolute Neuts (auto) Absolute Nucleated RBC Nucleated RBC % (auto) Sodium Potassium Chloride Carbon Dioxide Anion Gap BUN Creatinine Estim Creat Clear Calc Estimated GFR Random Glucose Calcium Total Bilirubin Direct Bilirubin AST ALT Alkaline Phosphatase B-Natriuretic Peptide Total Protein Albumin Lipase Urine Color YELLOW Urine Appearance CLEAR Urine pH 6.0 Ur Specific [place] <= 1.005 Urine Protein NEG Urine Glucose (UA) NEG Urine Ketones NEG Urine Blood NEG Urine Nitrite NEG Ur Leukocyte Esterase NEG COVID-19 (DB) Negative COVID-19 Clin Com See Note Airway Mallampati Class: III TM Dist: >3cm Neck ROM: Full Denture: Upper and Lower Heart: [id number] Lungs: cta b/l Assessment and Plan Assessment Anesthesia Assessment: Anesthesia Plan Discussed and Chart Reviewed Final Anesthetic Review NPO: Yes ASA Class: IV Final Preanesthetic Review: No Changes in Pt Med Stat, Meds/Allgs Chart Reviewed, Consent Obtained/Reviewed and Anes Risks/Benef Reviewed Patient Risk: High Procedure Risk: Intermediate Assessment/Block/Sedation in SS: Assess/Block/Sedation-SS Anesthetic Plan Anesthetic Plan: GA and Agree w/ Assess. and Plan Disposition: Standard PACU
[2021-03-12] MEDS: Lactated Ringers 500 ML 20 ML IVCONT (13:07)
--- NOTE | 2021-03-12 15:20 | W.PM.OPN ---
Operative Note Operative Note Date of Service: 03/12/21 Narrative: Preoperative diagnosis: Acute calculous cholecystitis Postoperative diagnosis: Same Procedure: Laparoscopic cholecystectomy Matrix Inspector: None Anesthesia: General endotracheal Estimated blood loss: 25 cc Specimen: Gallbladder Immediate complications: None Indications Mr. Haynes is a 70-year-old who had acute onset of right upper quadrant abdominal pain yesterday. Workup revealed gallstones and elevated liver function studies. He had persistent pain and tenderness consistent with early acute cholecystitis and elected to proceed with surgery. Procedure in detail: With the patient in the supine position after induction of adequate general anesthesia, the abdomen was prepped with ChloraPrep and was draped sterilely. Compression boots were in place and he received subcutaneous heparin preoperatively for VT prophylaxis. 2 g of cefotetan were infused for antibiotic prophylaxis. Time-out was performed. Each trocar site was infiltrated with local anesthetic prior to making incisions. A supraumbilical incision was made and was carried down to the level of the fascia. The fascia was grasped in the midline with Yuniel clamp and holding sutures of 0 Polysorb were placed on either side. The Yuniel was then released and the fascia was split in the midline. The peritoneal cavity was entered. The Buster trocar was inserted and the abdomen was insufflated with carbon dioxide to a pressure of 15 mm of mercury. The 0 degree 5 mm laparoscoped was inserted and the peritoneal cavity was visualized. No abnormalities were identified initially. He was placed in reverse Trendelenburg position and rotated slightly left side down. Three 5 mm trocars were inserted into the right upper quadrant, 1 [address] between the xiphoid and umbilicus just to the right of the midline, 1 in the midclavicular line just below the costal margin and 1 in the anterior axillary line just below the costal margin. The gallbladder was identified. It appeared edematous. It was grasped along the fundus just beyond the anterior liver margin and was retracted cephalad. Adhesions between gallbladder and omentum were then taken down using a combination of gentle blunt and cautery dissection. No significant bleeding was encountered. The infundibulum was then grasped and retracted laterally. Dissection was continued on the infundibulum anteriorly moving medially to expose the cystic duct gallbladder junction. This structure was then dissected free circumferentially. Dissection was carried along the superomedial aspect of the gallbladder and the cystic artery was identified and also was dissected free circumferentially. Dissection was continued along the superomedial aspect of the gallbladder to obtain the critical view. Once this was done, the cystic duct was inspected. It appeared somewhat broad. A 5 mm clip was placed at the cystic duct gallbladder junction. The clip barely extended across the cystic duct. Decision was made to employ a large clips. The upper medial incision was extended and the 5 mm trocar was removed and replaced with a 5-12 trocar. The large clips were then employed. A clip was placed at the cystic duct gallbladder junction and 2 clips were placed just medial to it. The cystic duct was then divided between clips. The cystic artery was then treated in the same fashion. A small branch of cystic artery was identified running posteriorly in this also was divided between clips. The gallbladder was then dissected free from the liver bed using a combination of gentle blunt and cautery dissection. Two small vascular branches were identified posteriorly along the fundus of the gallbladder and these were divided between clips. Once the gallbladder was completely freed, the laparoscopic was removed and reinserted through the upper medial trocar. The specimen pouch was inserted through the Buster trocar. The gallbladder was placed into the pouch and the pouch was closed and withdrawn along with the Buster. The Buster was then reinserted in the abdomen was again insufflated to 15 mm of mercury. The laparoscopic was placed back through the Buster trocar and the operative field was visualized. Clips were intact on the cystic duct and cystic artery. The operative field was copiously irrigated with saline solution and was again inspected. Again, no bleeding was seen and clips remained intact. The patient was returned to the supine position. Upper abdominal trocars were removed under direct vision. There was no evidence of bleeding. Insufflation was discontinued and gas was allowed to skip in the peritoneal cavity. The Buster trocar was then removed. Fascial incisions at the upper medial trocar site and at the has son site were closed with [id number] sutures of 0 Polysorb. Skin incisions were closed with subcuticular sutures of 4-0 Polysorb. Steri-Strips and adhesive dressings were applied. He tolerated the procedure well and was transported to the recovery room in stable condition. There were no immediate complications. Sponge and instrument counts were correct.
[2021-03-12] MEDS: Lactated Ringers 1,000 ML 80 ML IVCONT (17:24)
[2021-03-12] MEDS: buPROPion HCl XL 150 MG TAB.ER.24H PO (20:36)
[2021-03-12] MEDS: Pramipexole Di-HCL 0.25 MG TABLET 0.75 MG PO (20:36)
[2021-03-12] MEDS: Carbidopa/Levodopa CR 50/200 TABLET.ER 1 TAB PO (20:36)
[2021-03-13] VITALS (7 sets, daily range): BP systolic 104–180; BP diastolic 50–80; PULSE 66–80; RESP 17–20; TEMP 36.1–36.8; O2SAT 92–98
[2021-03-13] MEDS: oxyCODONE HCl Immed Release 5 MG TABLET PO ×3 (03:45→20:25)
[2021-03-13] MEDS: Heparin Sodium,Porcine 5,000 UNIT/ML VIAL 5000 UNIT SUBCUT ×2 (05:47→15:52)
[2021-03-13] MEDS: Omeprazole 20 MG CAPSULE.DR PO (05:47)
[2021-03-13] MEDS: Morphine Sulfate 4 MG/ML CARTRIDGE IVPUSH (05:51)
[2021-03-13] MEDS: Lactated Ringers 1,000 ML 80 ML IVCONT (06:00)
[2021-03-13 07:02] LABS: Hematocrit 40.3 % (42-52); Hemoglobin 12.8 g/dl (14.0-18.0); Mean Corpuscular HGB Conc 31.8 g/dl (31.0-36.0); Mean Corpuscular Hemoglobin 27.3 pg (27.0-33.0); Mean Corpuscular Volume 85.9 fL (80-98); Mean Platelet Volume 11.2 fL (9.4-12.4); Platelet Count 126 X10*3/uL (160-400); Red Blood Count 4.69 X10*6/uL (4.60-5.80); Red Cell Distribution Width 12.4 % (11.0-16.0); White Blood Count 9.9 X10*3/uL (4.8-10.8)
[2021-03-13 07:42] LABS: Anion Gap 12 (12-20); Blood Urea Nitrogen 12 mg/dL (9-16); Calcium 8.1 mg/dL (8.4-10.2); Carbon Dioxide 24 mmol/L (22-29); Chloride 106 mmol/L (96-108); Creatinine Clr Calc Pharmacy 100.8; Estimated Glomerular Filt Rate > 60; Glucose Fasting 98 mg/dL (60-99); Sodium 138 mmol/L (135-145)
[2021-03-13] MEDS: oxyCODONE HCl Immed Release 5 MG TABLET 10 MG PO (07:49)
[2021-03-13] MEDS: Pramipexole Di-HCL 0.25 MG TABLET 0.75 MG PO ×3 (07:49→20:24)
[2021-03-13] MEDS: Carbidopa/Levodopa 25/100 TABLET 1 TAB PO ×3 (07:50→20:25)
[2021-03-13] MEDS: Carbidopa/Levodopa CR 50/200 TABLET.ER 1 TAB PO ×3 (07:50→20:25)
[2021-03-13] MEDS: buPROPion HCl XL 150 MG TAB.ER.24H PO ×2 (07:50→20:25)
--- NOTE | 2021-03-13 08:34 | PM.PNGS ---
Subjective Subjective Date of Service: 03/13/21 Interval history: Pod 1 status post laparoscopic cholecystectomy. Patient reports incisional pain and feels unsteady on his feet. He reports living with a roommate at home. Physical Exam Vital Signs: Vital Signs: Last Vital Signs Temp 97.4 F 03/13/21 07:08 Pulse 78 03/13/21 07:08 Resp 17 03/13/21 07:08 BP 180/80 H 03/13/21 07:08 Pulse Ox 95 03/13/21 07:08 Body Mass Index 35.3 Const: General: cooperative and no acute distress Nutritional Appearance: well nourished Orientation/consciousness: patient oriented x3 Resp: Effort & Inspection: normal respiratory effort GI: Other: Trocar incisions are clean, dry, and intact. Abdomen is soft and nondistended. Skin: General skin exam: no rashes or lesions noted Neuro: General: patient oriented x3 Extrem: General: Yes no clubbing, cyanosis or edema Progress Note: A&P Assessment and plan (1) Acute cholecystitis: Status: Acute Assessment and Plan: Pod 1 status post laparoscopic cholecystectomy for acute cholecystitis. The patient tolerated the procedure well and his wounds are healing nicely. He is unsteady on his feet at this time due to his Parkinson's and recent surgery. I will check back later today to see if he is ready for discharge. Fall Risk Details Current Medications: Current Medications Generic Name Dose Route Start Last Admin Trade Name Freq PRN Reason Stop Dose Admin Acetaminophen 650 mg 03/12/21 16:20 Acetaminophen 325 Mg Tablet PO Q6H PRN Fever Bupropion HCl 150 mg 03/12/21 21:00 03/13/21 07:50 Bupropion Hcl Xl 150 Mg Tab.Er.24h PO 150 mg BID LÁZARO Administration Carbidopa/Levodopa 1 tab 03/12/21 16:20 03/13/21 07:50 Carbidopa/Levodopa Cr 50/200 Tablet.Er PO 1 tab TID LÁZARO Administration Carbidopa/Levodopa 1 tab 03/12/21 16:20 03/13/21 07:50 Carbidopa/Levodopa 25/100 Tablet PO 1 tab TID LÁZARO Administration Diazepam 5 mg 03/12/21 16:20 Diazepam 5 Mg Tablet PO TID PRN anxiety Heparin Sodium (Porcine) 5,000 unit 03/12/21 17:00 03/13/21 05:47 Heparin Sodium,Porcine 5,000 Unit/Ml Vial SUBCUT 5,000 unit Q12H LÁZARO Administration Lactated Ringer's 1,000 mls @ 80 mls/hr 03/12/21 16:20 03/13/21 06:00 Lr IVCONT 80 mls/hr .[id number] LÁZARO Administration Morphine Sulfate 4 mg 03/12/21 16:20 03/13/21 05:51 Morphine Sulfate 4 Mg/Ml Cartridge IVPUSH 4 mg Q3H PRN Administration Pain, severe Omeprazole 20 mg 03/12/21 10:45 03/13/21 05:47 Omeprazole 20 Mg Capsule. PO 20 mg DAILY@0630 LÁZARO Administration Ondansetron HCl 4 mg 03/12/21 16:20 Ondansetron Hcl 4 Mg/2 Ml Vial IVPUSH Q8H PRN Nausea Oxycodone HCl 10 mg 03/12/21 16:20 03/13/21 07:49 Oxycodone Hcl Immed Release 5 Mg Tablet PO 10 mg Q4H PRN Administration Pain, Severe (Pain Scale 7-10) Oxycodone HCl 5 mg 03/12/21 16:20 03/13/21 03:45 Oxycodone Hcl Immed Release 5 Mg Tablet PO 5 mg Q4H PRN Administration Pain, Moderate (Pain Scale 4-6 Pharmacy Consult 1 each 03/12/21 09:40 Consult Rx Perform Med Rec MISCELLANE ONCE PRN Consult order Pramipexole Dihydrochloride 0.75 mg 03/12/21 21:00 03/13/21 07:49 Pramipexole Di-Hcl 0.25 Mg Tablet PO 0.75 mg TID LÁZARO Administration Time Spent With Patient Time: Total time spent is greater than 50% in coordination of care (as documented) at patient's floor/unit and/or counseling patient: Time with patient: 15 - 24 minutes Procedures Date of Service Date of Service: 03/13/21 Quality Stroke Does the patient have a stroke diagnosis?: No VTE Prior VTE?: Yes VTE Risk Level:: Surgical - high VTE Device Contraindication: N/A - Device Ordered VTE Drug Contraindication: N/A - Med Ordered
--- NOTE | 2021-03-13 11:07 | HO.POSTANES ---
Post Anesthesia Evaluation Post Anesthesia Evaluation Vital Signs: Vital Signs Temp Pulse Resp BP Pulse Ox 03/13/21 07:08 97.4 F 78 17 180/80 H 95 03/13/21 04:00 97.4 F 80 20 135/66 95 03/13/21 00:00 18 03/12/21 23:58 96.8 F 75 18 123/59 L 93 Anesthesia: General Endotracheal-GETA Mental Status: Awake Pain Control: Satisfactory Nausea/Vomiting: None Hydration: Adequate Anesthesia-Related Issues: No Anes. Related Issues
[2021-03-14] MEDS: oxyCODONE HCl Immed Release 5 MG TABLET PO ×3 (01:03→15:17)
[2021-03-14 03:51] VITALS: BP 135/64; PULSE 75; RESP 18; TEMP 36.4; O2SAT 91
[2021-03-14] MEDS: Omeprazole 20 MG CAPSULE.DR PO (05:41)
[2021-03-14] MEDS: Heparin Sodium,Porcine 5,000 UNIT/ML VIAL 5000 UNIT SUBCUT ×2 (05:41→16:45)
[2021-03-14] MEDS: Carbidopa/Levodopa CR 50/200 TABLET.ER 1 TAB PO ×3 (07:36→20:09)
[2021-03-14] MEDS: Carbidopa/Levodopa 25/100 TABLET 1 TAB PO ×3 (07:36→20:09)
[2021-03-14] MEDS: buPROPion HCl XL 150 MG TAB.ER.24H PO ×2 (07:37→20:09)
[2021-03-14] MEDS: Pramipexole Di-HCL 0.25 MG TABLET 0.75 MG PO ×3 (07:37→20:09)
[2021-03-14 08:00] VITALS: BP 195/83; PULSE 77; RESP 18; TEMP 37.1; O2SAT 95
--- NOTE | 2021-03-14 09:22 | P.PNGS_ITS ---
Subjective Subjective Date of Service: 03/14/21 Interval history: Pod 2 status post lap cholecystectomy for acute cholecystitis. He is eating well and denies nausea or vomiting. He does report weakness with ambulation and does not feel ready for discharge. He is working with physical therapy today. Physical Exam Vital Signs: Vital Signs: Last Vital Signs Temp 98.7 F 03/14/21 08:00 Pulse 77 03/14/21 08:00 Resp 18 03/14/21 08:00 BP 195/83 H 03/14/21 08:00 Pulse Ox 95 03/14/21 08:00 Body Mass Index 35.3 Const: General: no acute distress Nutritional Appearance: well nourished Orientation/consciousness: patient oriented x3 Resp: Effort & Inspection: normal respiratory effort GI: Other: Soft, nondistended, well-healed incisions with intact dressings. No bleeding or discharge. Neuro: General: patient oriented x3 Extrem: General: Yes no clubbing, cyanosis or edema Progress Note: A&P Assessment and plan (1) Acute cholecystitis: Status: Acute Assessment and Plan: Pod 2 status post laparoscopic cholecystectomy. Patient is tolerating a regular diet without nausea or vomiting. Will wait PT assessment for disposition. Patient may require senior living facility. Fall Risk Details Current Medications: Current Medications Generic Name Dose Route Start Last Admin Trade Name Freq PRN Reason Stop Dose Admin Acetaminophen 650 mg 03/12/21 16:20 Acetaminophen 325 Mg Tablet PO Q6H PRN Fever Bupropion HCl 150 mg 03/12/21 21:00 03/14/21 07:37 Bupropion Hcl Xl 150 Mg Tab.Er.24h PO 150 mg BID LÁZARO Administration Carbidopa/Levodopa 1 tab 03/12/21 16:20 03/14/21 07:36 Carbidopa/Levodopa Cr 50/200 Tablet.Er PO 1 tab TID LÁZARO Administration Carbidopa/Levodopa 1 tab 03/12/21 16:20 03/14/21 07:36 Carbidopa/Levodopa 25/100 Tablet PO 1 tab TID LÁZARO Administration Diazepam 5 mg 03/12/21 16:20 Diazepam 5 Mg Tablet PO TID PRN anxiety Heparin Sodium (Porcine) 5,000 unit 03/12/21 17:00 03/14/21 05:41 Heparin Sodium,Porcine 5,000 Unit/Ml Vial SUBCUT 5,000 unit Q12H LÁZARO Administration Morphine Sulfate 4 mg 03/12/21 16:20 03/13/21 05:51 Morphine Sulfate 4 Mg/Ml Cartridge IVPUSH 4 mg Q3H PRN Administration Pain, severe Omeprazole 20 mg 03/12/21 10:45 03/14/21 05:41 Omeprazole 20 Mg Capsule.Dr PO 20 mg DAILY@0630 LÁZARO Administration Ondansetron HCl 4 mg 03/12/21 16:20 Ondansetron Hcl 4 Mg/2 Ml Vial IVPUSH Q8H PRN Nausea Oxycodone HCl 10 mg 03/12/21 16:20 03/13/21 07:49 Oxycodone Hcl Immed Release 5 Mg Tablet PO 10 mg Q4H PRN Administration Pain, Severe (Pain Scale 7-10) Oxycodone HCl 5 mg 03/12/21 16:20 03/14/21 07:36 Oxycodone Hcl Immed Release 5 Mg Tablet PO 5 mg Q4H PRN Administration Pain, Moderate (Pain Scale 4-6 Pharmacy Consult 1 each 03/12/21 09:40 Consult Rx Perform Med Rec MISCELLANE ONCE PRN Consult order Pramipexole Dihydrochloride 0.75 mg 03/12/21 21:00 03/14/21 07:37 Pramipexole Di-Hcl 0.25 Mg Tablet PO 0.75 mg TID LÁZARO Administration Time Spent With Patient Time: Total time spent is greater than 50% in coordination of care (as documented) at patient's floor/unit and/or counseling patient: Time with patient: 15 - 24 minutes Procedures Date of Service Date of Service: 03/14/21 Quality Stroke Does the patient have a stroke diagnosis?: No VTE Prior VTE?: Yes VTE Risk Level:: Surgical - high VTE Device Contraindication: N/A - Device Ordered VTE Drug Contraindication: N/A - Med Ordered
[2021-03-14 09:57] VITALS: BP 195/83; PULSE 77; O2SAT 95
--- NOTE | 2021-03-14 11:18 | MHC.CM.PN ---
PATIENT LIVES WITH A ROOMMATE WHO PROVIDES MAJORITY OF TRANSPORTATION. PATIENT HAS A WALKER AND GRAB BARS AND RAILS IN BATHROOM THERE IS ONE STAIR INTO THE HOME HE DOES HAVE STAIRS TO THE [place]STAIRS [place], BUT FEELS COMFORTABLE MANAGING HIS WAY WITH THE ASSIST OF THE [place]. NO [facility] AND NO [facility]. HE DOES HAVE A CONTACT CARD FOR AN AGENT AT [facility] AND WILL CALL WHEN HE FEELS THE NEED FOR AN INTAKE OF SERVICES ASSESSMENT. PATIENT IS ASSIGNING A HCP AGENT. BROTHER CHAI ([phone]) NEW COPY TO BE UPLOADED INTO [employer] AND ONE COPY TO BE MAILED TO CHAI. IMM 03/14 IN CHART. CASE MANAGEMENT FOLLOWING.
[2021-03-14 12:00] VITALS: BP 151/61; PULSE 80; RESP 16; TEMP 36.8; O2SAT 96
--- NOTE | 2021-03-14 14:40 | MHC.CM.PN ---
PATIENT REQUESTS REFERRALS TO [facility] PLAN IS LIKELY FOR DISCHARGE TOMORROW (03/15/21) PATIENT WILL MAKE HIS DECISION THEN.
[2021-03-14 15:46] VITALS: BP 138/52; PULSE 75; RESP 16; TEMP 36.6; O2SAT 94
[2021-03-14 19:07] VITALS: BP 114/58; PULSE 69; RESP 18; TEMP 36.6; O2SAT 94
[2021-03-15] VITALS: BP 158/79; PULSE 70; RESP 16; TEMP 36.5; O2SAT 99
[2021-03-15] MEDS: oxyCODONE HCl Immed Release 5 MG TABLET PO ×2 (00:35→04:51)
[2021-03-15 04:00] VITALS: BP 160/80; PULSE 73; RESP 16; TEMP 36.1; O2SAT 96
[2021-03-15] MEDS: Heparin Sodium,Porcine 5,000 UNIT/ML VIAL 5000 UNIT SUBCUT (04:48)
[2021-03-15] MEDS: Omeprazole 20 MG CAPSULE.DR PO (06:22)
[2021-03-15 07:08] VITALS: BP 159/73; PULSE 68; RESP 18; TEMP 36.2; O2SAT 95
--- NOTE | 2021-03-15 08:35 | P.DS_ITS ---
DS: Providers Provider Date of Service: 03/15/21 Date of admission: 03/12/21 10:34 Date of discharge: 03/15/21 Primary care physician: Ventura Multani MD Admitting clinician: Carline Wilson Discharging clinician: Gene Brito DS: Diagnosis Discharge Diagnosis (1) Acute cholecystitis: Status: Acute DS: Medications Discharge Medications Home Medications: Home Medications Medication Instructions Recorded Confirmed carbidopa 25 mg-levodopa 100 mg 1 tab PO TID 07/07/20 03/12/21 tablet carbidopa ER 50 mg-levodopa 200 mg 1 tab PO TID 07/07/20 03/12/21 tablet,extended release pramipexole 0.75 mg tablet 0.75 mg PO TID tab 10/03/20 03/12/21 [id number] 1 tab PO DAILY 03/12/21 03/12/21 Previous Rx's Medication Instructions Recorded omeprazole 20 mg capsule,delayed 20 mg PO DAILY #90 cap 12/21/20 release bupropion HCl 150 mg 24 hr tablet, 150 mg PO BID 90 Days #180 tab 02/21/21 extended release diazepam 5 mg tablet 5 mg PO TID PRN 30 Days #90 tab 03/09/21 oxycodone 5 mg PO Q4H PRN #14 tab 03/12/21 lidocaine [Lidocaine Pain Relief] 1 patch TRANSDERMAL DAILY #30 ea 03/15/21 DS: Summary Hospital Course Hospital Course: Evelio Haynes is a 70 year old male who was feeling well during the day yesterday, but in the evening, after eating a cheese [place], he had acute onset of severe and worsening right upper quadrant abdominal pain. He did not experience fever, chills, nausea or vomiting. Because the pain was persistent and worsening, he elected to come to the emergency room early this morning for further evaluation. Workup revealed gallstones without clear evidence of acute cholecystitis. Liver function studies were elevated, total bilirubin 2.9, AST 379 and alkaline phosphatase 137.liver function studies have been normal in the past. He received morphine in the emergency department with mild improvement, but had persistent pain and tenderness. Findings are felt to be consistent with early acute cholecystitis. Patient underwent a laparoscopic cholecystectomy on the day of admission and tolerated the procedure well. Postoperatively, he was slow to mobilize due to his underlying Parkinson's Disease. Over the next several days, as his pain became more control, he was able to ambulate slowly with assistance. He is tolerating a regular diet without nausea or vomiting. He would benefit with a short term nursing facility to increase his strength prior to returning to his home. He should avoid lifting > 10 pounds for 2 weeks. He should avoid fatty/fried foods. I asked him to return to the office in 2 weeks for wound check. Time Spent with Patient Time attestation: Total time spent providing and/or coordinating discharge services: Discharge coordination time: Less than 30 minutes Quality: Stroke Does the patient have a stroke diagnosis?: No Physical Exam Vital Signs: Vital Signs: Last Vital Signs Temp 97.1 F 03/15/21 07:08 Pulse 68 03/15/21 07:08 Resp 18 03/15/21 07:08 BP 159/73 H 03/15/21 07:08 Pulse Ox 95 03/15/21 07:08 Body Mass Index 35.3 Const: General: cooperative, comfortable and no acute distress Orientation/consciousness: patient oriented x3 Resp: Effort & Inspection: normal respiratory effort GI: Other: wounds clean and intact, no redness or discharge Inspection: Yes normal to inspection Skin: Other: warm and dry Neuro: General: patient oriented x3 DS: Data Data Completed and Pending Completed studies during hospitalization [Text1]: Pending at discharge 03/12/21 14:30 Surgical [PTH] Routine Discharge Plan Discharge Patient Disposition: er SNF Discharge Diagnosis: acute calculous cholecystitis Referrals: Gene Brito MD [Physician] - 2 Weeks Ventura Multani MD [Primary Care Provider] - 1 Week Discharge Medications: New oxycodone 5 mg Tablet 5 mg PO Q4H PRN (Reason: Pain, Moderate (Pain Scale 4-6) Qty: 14 RF: 0 lidocaine [Lidocaine Pain Relief] 4 % Adhesive Patch,Medicated 1 patch transdermal DAILY Qty: 30 RF: 0 Continued omeprazole 20 mg capsule,delayed release(DR/EC) 20 mg PO DAILY Qty: 90 RF: 0 bupropion HCl [Wellbutrin XL] 150 mg tablet extended release 24 hr 150 mg PO BID 90 Days Qty: 180 RF: 1 diazepam 5 mg tablet 5 mg PO TID PRN (Reason: anxiety) 30 Days Qty: 90 RF: 0 [id number] Tablet 1 tab PO DAILY RF: 0 carbidopa-levodopa 50-200 mg tablet extended release 1 tab PO TID RF: 0 carbidopa-levodopa 25-100 mg tablet 1 tab PO TID RF: 0 pramipexole 0.75 mg tablet 0.75 mg PO TID RF: 0 Discharge Orders: Discharge Order (Routine); Ordered 03/15/21 Ordered By: Gene Brito Diet: advance to usual diet Activity on Discharge: No heavy lifting Stand Alone Forms: Patient Portal Discharge page Care Plan Goals: Postoperative recovery, return to usual activities Health Concerns: Parkinson's, recovery following laparoscopic cholecystectomy Plan of Treatment: Rest, gradual return to usual activity, continue exercises for Parkinson's Assessment: Acute cholecystitis
[2021-03-15] MEDS: Carbidopa/Levodopa 25/100 TABLET 1 TAB PO (08:51)
[2021-03-15] MEDS: buPROPion HCl XL 150 MG TAB.ER.24H PO (08:51)
[2021-03-15] MEDS: Pramipexole Di-HCL 0.25 MG TABLET 0.75 MG PO (08:51)
[2021-03-15] MEDS: Carbidopa/Levodopa CR 50/200 TABLET.ER 1 TAB PO (08:51)
[2021-03-15] MEDS: Lidocaine 4 % Patch ADH..PATCH 1 PATCH TRANSDERMA (08:53)
--- NOTE | 2021-03-15 10:02 | MHC.CM.PN ---
PATIENT TO TRANSFER TO [facility] TODAY [facility]IA [facility].'TIME SCHEDULED FOR 1300. RN, PATIENT, AND UNIT AWARE OF PLAN.
[2021-03-15 10:37] LABS: COVID-19 Test Negative (Negative); IDNOW Serial# 9DD0AD1C
[2021-03-15 11:42] VITALS: BP 159/71; PULSE 76; RESP 16; TEMP 36.6; O2SAT 94
--- NOTE | 2021-03-15 12:06 | P.PNGS_ITS ---
Subjective Subjective Date of Service: 03/15/21 Interval history: Pod 3 status post lap cholecystectomy for acute cholecystitis. He is eating well and denies nausea or vomiting. He did better with getting out of bed yesterday. He is thinking he will need short-term rehab prior to going home. Physical Exam Vital Signs: Vital Signs: Last Vital Signs Temp 97.9 F 03/15/21 11:42 Pulse 76 03/15/21 11:42 Resp 16 03/15/21 11:42 BP 159/71 H 03/15/21 11:42 Pulse Ox 94 03/15/21 11:42 Body Mass Index 35.3 Const: General: cooperative and no acute distress Orientat ion/consciousness: patient oriented x3 Resp: Effort & Inspection: normal respiratory effort GI: Other: Abdomen soft and nondistended, normal bowel sounds, dressings removed, wounds are clean and intact. Skin: Other: Warm, dry, no rash Neuro: General: patient oriented x3 Extrem: General: Yes no clubbing, cyanosis or edema Progress Note: A&P Assessment and plan (1) Acute cholecystitis: Status: Acute Assessment and Plan: Overall patient is much improved, tolerating regular diet without significant abdominal pain. He would benefit from a short stay in a custodial facility prior to returning home. He will be ready for discharge today. Fall Risk Details Current Medications: Current Medications Generic Name Dose Route Start Last Admin Trade Name Freq PRN Reason Stop Dose Admin Acetaminophen 650 mg 03/12/21 16:20 Acetaminophen 325 Mg Tablet PO Q6H PRN Fever Bupropion HCl 150 mg 03/12/21 21:00 03/15/21 08:51 Bupropion Hcl Xl 150 Mg Tab.Er.24h PO 150 mg BID LÁZARO Administration Carbidopa/Levodopa 1 tab 03/12/21 16:20 03/15/21 08:51 Carbidopa/Levodopa Cr 50/200 Tablet.Er PO 1 tab TID LÁZARO Administration Carbidopa/Levodopa 1 tab 03/12/21 16:20 03/15/21 08:51 Carbidopa/Levodopa 25/100 Tablet PO 1 tab TID LÁZARO Administration Diazepam 5 mg 03/12/21 16:20 Diazepam 5 Mg Tablet PO TID PRN anxiety Heparin Sodium (Porcine) 5,000 unit 03/12/21 17:00 03/15/21 04:48 Heparin Sodium,Porcine 5,000 Unit/Ml Vial SUBCUT 5,000 unit Q12H LÁZARO Administration Lidocaine 1 patch 03/15/21 09:00 03/15/21 08:53 Lidocaine 4 % Patch Adh..Patch TRANSDERMA 1 patch DAILY LÁZARO Administration Protocol Morphine Sulfate 4 mg 03/12/21 16:20 03/13/21 05:51 Morphine Sulfate 4 Mg/Ml Cartridge IVPUSH 4 mg Q3H PRN Administration Pain, severe Omeprazole 20 mg 03/12/21 10:45 03/15/21 06:22 Omeprazole 20 Mg Capsule.Dr PO 20 mg DAILY@0630 LÁZARO Administration Ondansetron HCl 4 mg 03/12/21 16:20 Ondansetron Hcl 4 Mg/2 Ml Vial IVPUSH Q8H PRN Nausea Oxycodone HCl 10 mg 03/12/21 16:20 03/13/21 07:49 Oxycodone Hcl Immed Release 5 Mg Tablet PO 10 mg Q4H PRN Administration Pain, Severe (Pain Scale 7-10) Oxycodone HCl 5 mg 03/12/21 16:20 03/15/21 04:51 Oxycodone Hcl Immed Release 5 Mg Tablet PO 5 mg Q4H PRN Administration Pain, Moderate (Pain Scale 4-6 Pharmacy Consult 1 each 03/12/21 09:40 Consult Rx Perform Med Rec MISCELLANE ONCE PRN Consult order Pramipexole Dihydrochloride 0.75 mg 03/12/21 21:00 03/15/21 08:51 Pramipexole Di-Hcl 0.25 Mg Tablet PO 0.75 mg TID LÁZARO Administration Time Spent With Patient Time: Total time spent is greater than 50% in coordination of care (as documented) at patient's floor/unit and/or counseling patient: Time with patient: 15 - 24 minutes Procedures Date of Service Date of Service: 03/15/21 Quality Stroke Does the patient have a stroke diagnosis?: No VTE Prior VTE?: Yes VTE Risk Level:: Surgical - high VTE Device Contraindication: N/A - Device Ordered VTE Drug Contraindication: N/A - Med Ordered
== END 2021-03-15 14:34 | disposition skilled nursing facility (03) | DRG 419 ==
LOC: HO.ED 10:17 → HO.EDOVER 10:56 → HO.S3 16:12
PROVIDERS: Surgery; Admitting Provider Surgery; Emergency Provider Emergency Medicine; PCP Internal Medicine; Visit Provider Surgery
PROC: 0FT44ZZ Resection of Gallbladder, Percutaneous Endoscopic Approach (ICD-10-PCS; CPT 47562; principal; 2021-03-12 13:00)
DX: K80.00 Calculus of gallbladder with acute cholecystitis without obstruction (principal); G20 Parkinson's disease; Z20.822 Contact with and (suspected) exposure to COVID-19; Z79.899 Other long term (current) drug therapy
CPT/HCPCS: 36415; 76705; 80048; 80053; 80076; 81003; 83690; 83880; 85025; 85027; 87635; 88304; 97110; 97116; 97162; 99024; 99284; J1100; J1170; J2250; J2270; J2370; J2405; J2543; J3010

== ENCOUNTER → 2021-03-29 15:26 | Outpatient (BNVA) | payer MEDICARE, MEDICAID, SELFPAY | PROVIDERS: PCP Internal Medicine; Referring Provider Internal Medicine; Visit Provider Surgery | DX: Z48.815 Encounter for surgical aftercare following surgery on the digestive system (principal); Z90.49 Acquired absence of other specified parts of digestive tract; Z87.19 Personal history of other diseases of the digestive system | CPT/HCPCS: 99212 ==

== ENCOUNTER → 2021-04-26 10:38 | Outpatient (BNVA) | payer MEDICARE, MEDICAID, SELFPAY | PROVIDERS: PCP Internal Medicine; Visit Provider Internal Medicine Gastroenterology ==

== ENCOUNTER → 2021-05-03 12:36 | Outpatient (BNVA) | payer MEDICARE, MEDICAID, SELFPAY | PROVIDERS: PCP Internal Medicine; Visit Provider Surgery Vascular Surgery | DX: I83.11 Varicose veins of right lower extremity with inflammation (principal) | CPT/HCPCS: 99212 ==

== ENCOUNTER 2021-05-08 13:02 | Outpatient (REF) | payer MEDICARE, MEDICAID, SELFPAY ==
[2021-05-08 15:24] LABS: Hematocrit 39.7 % (42-52); Mean Corpuscular HGB Conc 32.7 g/dl (31.0-36.0); Mean Corpuscular Hemoglobin 27.6 pg (27.0-33.0); Mean Corpuscular Volume 84.3 fL (80-98); Platelet Count 184 X10*3/uL (160-400); Red Blood Count 4.71 X10*6/uL (4.60-5.80); Red Cell Distribution Width 13.3 % (11.0-16.0)
[2021-05-08 15:34] LABS: Alanine Aminotransferase 8 U/L (0-40); Albumin Level 3.9 g/dL (3.5-5.0); Alkaline Phosphatase 64 U/L (39-117); Anion Gap 12 (12-20); Aspartate Amino Transferase 18 U/L (5-37); Bilirubin Direct 0.2 mg/dL (0.0-0.5); Bilirubin Total 0.6 mg/dL (0.0-1.0); Blood Urea Nitrogen 17 mg/dL (9-16); Calcium 9.1 mg/dL (8.4-10.2); Carbon Dioxide 27 mmol/L (22-29); Chloride 105 mmol/L (96-108); Cholesterol 157 mg/dL; Estimated Glomerular Filt Rate > 60; Glucose Random 80 mg/dL (60-115); HDL Cholesterol 38 mg/dL; LDL Cholesterol Calculated 99 mg/dl; Potassium 4.1 mmol/L (3.3-5.1); Sodium 140 mmol/L (135-145); Total Protein 6.1 g/dL (6.5-8.0); Triglycerides 103 mg/dL
[2021-05-08 16:02] LABS: Thyroid Stimulating Hormone 2.46 uIU/mL (0.32-4.0)
[2021-05-08 16:08] LABS: Prostate Specific Antigen Scr 1.57 ng/mL (<0.05-4.0)
== END 2021-05-08 13:03 | disposition home or self-care (01) ==
LOC: HO.LAB 13:02
PROVIDERS: PCP Internal Medicine; Visit Provider Internal Medicine
DX: Z12.5 Encounter for screening for malignant neoplasm of prostate (principal); F32.9 Major depressive disorder, single episode, unspecified; F41.9 Anxiety disorder, unspecified; K21.9 Gastro-esophageal reflux disease without esophagitis
CPT/HCPCS: 36415; 80048; 80061; 80076; 84153; 84443; 85027

== ENCOUNTER 2021-05-10 10:56 | Outpatient (REF) | payer MEDICARE, MEDICAID, SELFPAY ==
[2021-05-10 11:24] LABS: Appearance Urine CLEAR; Color Urine YELLOW; Glucose Urine UA NEG (NEG); Leukocyte Esterase Urine NEG (NEG); Nitrite Urine NEG (NEG); Urine Blood NEG (NEG); Urine Ketones NEG (NEG); Urine Protein NEG (NEG-TRACE)
== END 2021-05-10 10:57 | disposition home or self-care (01) ==
LOC: HO.LNP 10:56
PROVIDERS: Visit Provider Internal Medicine
DX: F41.9 Anxiety disorder, unspecified (principal); F32.9 Major depressive disorder, single episode, unspecified; K21.9 Gastro-esophageal reflux disease without esophagitis
CPT/HCPCS: 81003

== ENCOUNTER 2021-05-15 10:27 | Outpatient (REF) | payer MEDICARE, MEDICAID, SELFPAY ==
--- NOTE | ~2021-05-15 | US_ITS ---
EXAMINATION: RIGHT and LEFT LOWER EXTREMITY VENOUS ULTRASOUND (Reflux Exam) CLINICAL INDICATION: leg pain and varicose veins. COMPARISON: Previous exams most recent December 2018 TECHNIQUE: Color flow triplex imaging and compression Doppler was performed to evaluate both the deep and the superficial systems bilaterally. To evaluate the superficial system, the examination was performed in the upright position. Color-flow Doppler ultrasound and compression ultrasound were utilized. In addition, maneuvers were utilized to demonstrate reflux. FINDINGS: 1. DEEP VENOUS ULTRASOUND OF THE RIGHT LOWER EXTREMITY: Respiratory variation, normal compression and augmented flow are noted in the right common femoral vein as well as the right popliteal vein and there is no evidence of deep venous thrombosis at these locations. There is deep venous reflux measuring 0.8 seconds in the common femoral vein, 1.2 seconds in the official femoral vein and 1.5 seconds in the popliteal vein. There is no evidence of a Shukla's cyst. 2. SUPERFICIAL ULTRASOUND WITH DOPPLER OF RIGHT LOWER EXTREMITY: The right great saphenous vein at the saphenofemoral junction measures 7 mm, mid calf 3 mm and at the ankle measures 4 mm. The right greater saphenous vein is occluded from the mid thigh to below the knee. There is right greater saphenous vein reflux seen in the mid calf measuring 1 second and at the ankle measuring 1.9 seconds. The right small saphenous vein measures 3-6 mm and shows no reflux. There are varicosities and perforators in the calf and demonstrate reflux, maximum 2 seconds reflux and a 4 mm crucible packer and 1.9 seconds reflux in the 3 mm varicosity in the distal calf. 3. DEEP VENOUS ULTRASOUND OF THE LEFT LOWER EXTREMITY: There is a linear echogenic density seen in duplicated left common femoral, superficial femoral and popliteal veins suggestive of chronic changes from DVT. This finding is similar to previous exams. No evidence of acute DVT. There is no reflux in the common femoral vein. There is 2 seconds reflux in the superficial femoral vein and 1.5 second reflux in the popliteal vein.. There is no evidence of a Shukla's cyst. 4. SUPERFICIAL ULTRASOUND WITH DOPPLER OF LEFT LOWER EXTREMITY: Left great saphenous vein at the saphenofemoral junction measures 7 mm, at-the-knee 6 mm, [id number] 5 mm, at mid calf 3 mm and at the ankle measures 3 mm. The greater saphenous vein appears occluded in the thigh. There is left greater saphenous vein reflux measuring 1.9 seconds at the knee, 1.7 seconds below the knee, 2 seconds in the mid calf and 3 seconds at the ankle. The left small saphenous vein measures 3-5 mm and demonstrates diffuse reflux measuring maximum 2.6 seconds at the saphenofemoral popliteal junction. There are perforators and varicosities at the knee and calf that demonstrate reflux maximum 2 mm crucible packer once second reflux and 3 mm varicosity with 2 seconds reflux. US/US venous duplex LE BI IMPRESSION: Right: Deep venous reflux in the common femoral, superficial femoral and popliteal veins. Occluded right greater saphenous vein in the thigh post venous procedure. Right greater saphenous vein reflux in the calf and ankle. No right lesser saphenous vein reflux. 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 Deep venous reflux in the superficial femoral and popliteal veins are occluded left greater saphenous vein in the thigh post venous procedure. Left greater saphenous vein reflux from the knee to the calf. Left lesser saphenous vein reflux.
== END 2021-05-15 10:28 | disposition home or self-care (01) ==
LOC: HO.US 10:27
PROVIDERS: PCP Internal Medicine; Visit Provider Surgery Vascular Surgery
DX: I83.893 Varicose veins of bilateral lower extremities with other complications (principal); I83.11 Varicose veins of right lower extremity with inflammation
CPT/HCPCS: 93970

== ENCOUNTER → 2021-05-29 13:16 | Outpatient (BNVA) | payer MEDICARE, MEDICAID, SELFPAY | PROVIDERS: PCP Internal Medicine; Visit Provider Surgery Vascular Surgery | DX: I83.12 Varicose veins of left lower extremity with inflammation (principal) | CPT/HCPCS: 99212 ==

== ENCOUNTER → 2021-06-22 09:44 | Outpatient (BNVA) | payer MEDICARE, MEDICAID, SELFPAY | PROVIDERS: PCP Internal Medicine; Referring Provider Internal Medicine; Visit Provider Surgery Vascular Surgery | DX: I83.12 Varicose veins of left lower extremity with inflammation (principal) | CPT/HCPCS: 36475 ==

== ENCOUNTER 2021-06-25 10:51 | Outpatient (REF) | payer MEDICARE, MEDICAID, SELFPAY ==
--- NOTE | ~2021-06-25 | US_ITS ---
EXAMINATION: US VENOUS ULTRASOUND WITH DOPPLER LOWER EXTREMITY, LEFT CLINICAL INFORMATION: This is a 71-year-old male with varicose veins and venous insufficiency. The patient previously underwent radiofrequency ablation of the venous system. 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 The previous also demonstrated chronic deep vein thrombosis in the left common femoral vein. COMPARISON: Comparison is made to the previous study dated 05/15/2021. Comparison is also made to a venous duplex ultrasound dated 01/05/2019 which demonstrated the duplicated femoral vein on the left with chronic fibrotic changes consistent with chronic deep vein thrombosis. TECHNIQUE: Ultrasound of the deep veins is performed from the hip to the calf with compression sonography and color and pulse Doppler assessment. Spectral analysis with color-flow imaging is performed. FINDINGS: Again noted are fibrinous changes in the left common femoral vein and proximal femoral vein consistent with deep vein thrombosis. There is also extension from the small saphenous vein into the region of the popliteal vein. This also may represent chronic deep vein thrombosis. This is similar to the previous study dated 05/15/2021. The small saphenous vein appears to be closed from previous treatment. This critical result was communicated directly by telephone to Iraida at Dr. Brooke's office 1137 hrs on 06/25/2021 and the content and urgency of the communication was understood. US/US venous duplex LE LT IMPRESSION: 1. There are findings consistent with deep vein thrombosis. Some, if not all, of this is chronic and was evident on the previous study dated 05/15/2021.
== END 2021-06-25 10:52 | disposition home or self-care (01) ==
LOC: HO.US 10:51
PROVIDERS: PCP Internal Medicine; Visit Provider Surgery Vascular Surgery
DX: M79.605 Pain in left leg (principal)
CPT/HCPCS: 93971

== ENCOUNTER 2021-07-05 13:22 | Outpatient (REF) | payer MEDICARE, MEDICAID, SELFPAY ==
--- NOTE | ~2021-07-05 | US_ITS ---
EXAMINATION: US VENOUS ULTRASOUND WITH DOPPLER LOWER EXTREMITY, LEFT CLINICAL INFORMATION: Chronic left common femoral DVT. COMPARISON: 06/25/2021 TECHNIQUE: Ultrasound of the deep veins is performed from the hip to the calf with compression sonography and color and pulse Doppler assessment. Spectral analysis with color-flow imaging is performed. FINDINGS: Left common femoral vein: Noncompressible. Partially occlusive, chronic thrombus is redemonstrated, unchanged from the prior examination. Proximal left great saphenous vein: Patent, normal color-flow. Left profunda femoris vein: Patent, normal color-flow. Left femoral vein: Compressible, normal color-flow, appropriate augmentation. Left popliteal vein: Noncompressible. Partially occlusive, chronic thrombus is redemonstrated, unchanged from the prior examination. Left posterior tibial veins: Normal color-flow. Left peroneal veins: Normal color-flow. The small saphenous vein appears occluded consistent with prior treatment. There is no Shukla's cyst. US/US venous duplex LE IMPRESSION: Chronic, partially occlusive thrombus within the left common femoral vein and the left popliteal vein is not significantly changed from the comparison examination on 06/25/2021. No evidence of new or progressive DVT.
== END 2021-07-05 13:23 | disposition home or self-care (01) ==
LOC: HO.US 13:22
PROVIDERS: PCP Internal Medicine; Visit Provider Surgery Vascular Surgery
DX: M79.605 Pain in left leg (principal); I83.12 Varicose veins of left lower extremity with inflammation
CPT/HCPCS: 93971; 99212

== ENCOUNTER → 2021-07-11 13:15 | Outpatient (BNVA) | payer MEDICARE, MEDICAID, SELFPAY | PROVIDERS: PCP Internal Medicine; Visit Provider Urology | DX: N52.9 Male erectile dysfunction, unspecified (principal); N43.3 Hydrocele, unspecified | CPT/HCPCS: Q3014 ==

== ENCOUNTER 2021-07-16 14:13 | Outpatient (REF) | payer MEDICARE, MEDICAID, SELFPAY ==
--- NOTE | ~2021-07-16 | US_ITS ---
EXAMINATION: US VENOUS ULTRASOUND WITH DOPPLER LOWER EXTREMITY, LEFT CLINICAL INFORMATION: Chronic left common femoral DVT. COMPARISON: 06/25/2021 and 07/05/2021 TECHNIQUE: Ultrasound of the deep veins is performed from the hip to the calf with compression sonography and color and pulse Doppler assessment. Spectral analysis with color-flow imaging is performed. FINDINGS: Left common femoral vein: Noncompressible. Partially occlusive, chronic thrombus is redemonstrated, unchanged from the prior examination. Proximal left great saphenous vein: Patent, normal color-flow. Left profunda femoris vein: Patent, normal color-flow. Left femoral vein: Compressible, normal color-flow, appropriate augmentation. Left popliteal vein: Noncompressible. Partially occlusive, chronic thrombus is redemonstrated, unchanged from the prior examination. Left posterior tibial veins: Normal color-flow. Left peroneal veins: Normal color-flow. The small saphenous vein appears occluded consistent with prior treatment. The thrombus from the small saphenous vein appears to extend into the popliteal vein. This appears unchanged. There is no Shukla's cyst. US/US venous duplex LE LT IMPRESSION: Chronic, partially occlusive thrombus within the left common femoral vein and the left popliteal vein is not significantly changed from the comparison examination on 06/25/2021 and 07/05/2021. No evidence of new or progressive DVT.
== END 2021-07-16 14:14 | disposition home or self-care (01) ==
LOC: HO.US 14:13
PROVIDERS: PCP Internal Medicine; Visit Provider Surgery Vascular Surgery
DX: I83.12 Varicose veins of left lower extremity with inflammation (principal)
CPT/HCPCS: 93971

== ENCOUNTER → 2021-07-17 13:24 | Outpatient (BNVA) | payer MEDICARE, MEDICAID, SELFPAY | PROVIDERS: PCP Internal Medicine; Visit Provider Surgery Vascular Surgery | DX: I82.439 Acute embolism and thrombosis of unspecified popliteal vein (principal) | CPT/HCPCS: 99212 ==

== ENCOUNTER 2021-11-05 08:30 | Outpatient (REF) | payer MEDICARE, MEDICAID, SELFPAY ==
[2021-11-05 09:17] LABS: Hematocrit 40.6 % (42.0-52.0); Hemoglobin 13.1 g/dl (14.0-18.0); Mean Corpuscular HGB Conc 32.3 g/dl (31.0-36.0); Mean Corpuscular Hemoglobin 28.9 pg (27.0-33.0); Mean Corpuscular Volume 89.6 fL (80.0-98.0); Mean Platelet Volume 10.9 fL (9.4-12.4); Platelet Count 170 X10*3/uL (160-400); Red Blood Count 4.53 X10*6/uL (4.60-5.80); Red Cell Distribution Width 12.2 % (11.0-16.0); White Blood Count 6.4 X10*3/uL (4.8-10.8)
[2021-11-05 09:49] LABS: Alanine Aminotransferase < 6 U/L (0-40); Albumin Level 3.8 g/dL (3.5-5.0); Alkaline Phosphatase 55 U/L (39-117); Anion Gap 9 (12-20); Aspartate Amino Transferase 14 U/L (5-37); Bilirubin Total 0.6 mg/dL (0.0-1.0); Blood Urea Nitrogen 17 mg/dL (9-16); Calcium 9.4 mg/dL (8.4-10.2); Carbon Dioxide 29 mmol/L (22-29); Chloride 108 mmol/L (96-108); Estimated Glomerular Filt Rate > 60; Glucose Random 127 mg/dL (60-115); Potassium 4.4 mmol/L (3.3-5.1); Sodium 142 mmol/L (135-145); Total Protein 5.9 g/dL (6.5-8.0)
[2021-11-05 10:10] LABS: Vitamin D 25-OH Total 29.4 ng/mL (>30)
[2021-11-05 10:57] LABS: Folate 14.8 ng/mL (> or = 4.0); Vitamin B12 315 pg/mL (200-900)
== END 2021-11-05 08:31 | disposition home or self-care (01) ==
LOC: HO.LAB 08:30
PROVIDERS: PCP Internal Medicine; Visit Provider Nurse Practitioner Family
DX: G20 Parkinson's disease (principal)
CPT/HCPCS: 36415; 80053; 82306; 82607; 82746; 85027

== ENCOUNTER → 2021-11-20 09:47 | Outpatient (BNVA) | payer MEDICARE, MEDICAID, SELFPAY | PROVIDERS: PCP Internal Medicine; Visit Provider Surgery Vascular Surgery | DX: I83.12 Varicose veins of left lower extremity with inflammation (principal) | CPT/HCPCS: 99212 ==

== ENCOUNTER → 2021-11-22 13:27 | Outpatient (BNVA) | payer MEDICARE, MEDICAID, SELFPAY | PROVIDERS: PCP Internal Medicine; Referring Provider Internal Medicine; Visit Provider Internal Medicine Gastroenterology | DX: Z12.11 Encounter for screening for malignant neoplasm of colon (principal); K59.09 Other constipation; K21.00 Gastro-esophageal reflux disease with esophagitis, without bleeding | CPT/HCPCS: 99212 ==

== ENCOUNTER → 2021-12-25 09:51 | Outpatient (BNVA) | payer MEDICARE, MEDICAID, SELFPAY | PROVIDERS: PCP Internal Medicine; Visit Provider Psychiatry & Neurology Neurology | DX: G20 Parkinson's disease (principal); K59.00 Constipation, unspecified; F41.8 Other specified anxiety disorders; Z79.899 Other long term (current) drug therapy | CPT/HCPCS: 99202 ==

== ENCOUNTER → 2022-01-15 09:20 | Outpatient (BNVA) | payer MEDICARE, MEDICAID, SELFPAY | PROVIDERS: PCP Internal Medicine; Visit Provider Urology | DX: N40.1 Benign prostatic hyperplasia with lower urinary tract symptoms (principal); N43.3 Hydrocele, unspecified; R33.9 Retention of urine, unspecified | CPT/HCPCS: 51798; 99212 ==

== ENCOUNTER 2022-01-15 13:00 | Outpatient (RCR) | payer MEDICARE, MEDICAID, SELFPAY ==
--- NOTE | 2021-10-01 16:04 | MHC.PT.EP ---
[facility] [place] [facility] [place] [facility] [place] [facility] [address] Shara Booth [address] [phone] F: [phone] F: [phone] F: [phone] F: [phone] Physical Therapy Plan of Care Date of Evaluation: Date of Surgery: N/A Diagnosis: M54.50 low back pain G20: Parkinson's disease Assessment: pt's signs and symptoms consistent to poor tissue extensibility and reduced joint mobility secondary to Parkinson's related changes. pt presents to physical therapy with pain, decreased range of motion, decreased strength, impaired functional mobility, impaired postural awareness, and gait deviations. pt is a good candidate for skilled PT due to age, potential remediation of impairments, typical disease/condition progression and prognosis, comorbidities, and motivation. pt would benefit from tailored strengthening and stretching exercise program, functional training, gait training, postural re-training, neuromuscular re-education, modalities as needed for pain, equipment safety demonstration. Frequency and Duration: The patient will be seen 2x/wk for 6 wks Short Term Goals: pt will be I w/ HEP to promote self-management of condition. pt will demo proper sitting posture w/ lumbar roll to promote neutral spine w/ seated ADLs and computer work. Monotype Setter Goals: pt will report a statistically significant improvement in self-reported outcome measure, Sweta, to promote return to PLOF. pt will improve trunk extensor strength to at least 4/5 to improve standing tolerance to >15 minutes for pt to return to meal prep. Treatment Plan: Modalities to reduce pain, spasms and effusion. Manual therapy to restore motion and function. Therapeutic exercise to improve strength and flexibility. Neuromuscular re-education for posture and balance. Therapeutic activities to return to functional activities of daily living. Electronically signed by: Cami Walsh PT, DPT Please sign and return to therapist. Thank you for your referral.
--- NOTE | 2022-01-24 10:53 | MHC.PT.DC ---
[facility] [place] Office [place] Office [place] Office [address] Shara Booth [address] [phone] F: [phone] F: [phone] F: [phone] F: [phone] Physical Therapy Discharge Report Diagnosis: M54.50 low back pain G20: Parkinson's disease Date of Surgery: N/A Date of Evaluation: 10/01/21 Date of Discharge: 01/24/22 Treatments to Date: 15 Cancellations to Date: 6 No Shows to Date: 0 Discharge Status: Improved Function Independent with HEP Discharge Summary: The patient has shown some improvement with physical therapy to this point. His back and neck pain are significantly impacted by his Parkinson's as he has difficulty with achieving neutral spine postures. He overall is very rigid but self-reports an improvement in his pain. He is independent with his home exercise program. He is discharged from this physical therapy plan of care to his home exercise program. Electronically signed by: Cami Walsh PT, DPT Please sign and return to therapist. Thank you for your referral.
== END 2022-01-24 10:53 | disposition home or self-care (01) ==
LOC: HO.PT 13:00
PROVIDERS: PCP Internal Medicine; Visit Provider Nurse Practitioner Family
DX: M54.50 Low back pain, unspecified (principal); G20 Parkinson's disease
CPT/HCPCS: 97110; 97112; 97162; 97530

== ENCOUNTER → 2022-03-07 12:07 | Outpatient (BNVA) | payer MEDICARE, MEDICAID, SELFPAY | PROVIDERS: PCP Internal Medicine; Visit Provider Urology | DX: N40.1 Benign prostatic hyperplasia with lower urinary tract symptoms (principal); R33.9 Retention of urine, unspecified; N43.3 Hydrocele, unspecified | CPT/HCPCS: Q3014 ==

== ENCOUNTER 2022-03-18 06:51 | Day surgery (SDC) | payer MEDICARE, MEDICAID, SELFPAY ==
[2022-03-12 13:45] VITALS: BMI 28.3
[2022-03-13 10:30] VITALS: BMI 28.5
--- NOTE | 2022-03-15 12:19 | HO.ANESPROP2 ---
Documented by User: Britta iSlva NP 03/15/22 12:20 HPI - Anesthesia Eval Consult details Narrative: 71yo M for Right Hydrocele drainage with TUIP PMFSH Active Problems Active Problems: All Active Problems (Updated 01/15/22 @ 09:57 by Daniel Alvarez MD) Incomplete emptying of bladder due to benign prostatic hyperplasia (Acute) Constipation (Acute) Anxiety and depression (Acute) Hyperglycemia (Acute) Encounter for annual wellness exam in Medicare patient (Acute) Low vitamin D level (Acute) Elevated glucose level (Acute) DVT of popliteal vein (Acute) Varicose veins of left lower extremity with inflammation (Acute) Varicose veins of right lower extremity with inflammation (Acute) Parkinsons disease (Acute) Essential hypertension (Acute) Injury of nail (Acute) Left hip pain (Acute) Erectile dysfunction (Acute) Hydrocele (Acute) Annual physical exam (Acute) Hiatal hernia (Acute) GERD with esophagitis (Acute) Parkinson disease (Acute) Close exposure to 2019 novel coronavirus (Acute) Chronic constipation (Acute) Colon cancer screening (Acute) Positive FIT (fecal immunochemical test) (Acute) Low back pain (Acute) Impotence (Acute) Anxiety and depression (Acute) Skin rash (Acute) Peripheral neuropathy (Acute) GERD (gastroesophageal reflux disease) (Acute) Past Medical History Medical History Anxiety and depression Arthritis GERD (gastroesophageal reflux disease) History of alcohol abuse Hx of subdural hematoma Impotence Left hip pain Low vitamin B12 level Parkinsons disease Peripheral neuropathy Sciatic pain Skin rash Tension headache Family History Family History Father Diabetes H/O heart bypass surgery Depression Mother Heart problem Depression Brother Hypertension Maternal Uncle Alcoholism Substance use disorder Other Mental health disorder Surgical History Surgical History History of bilateral cataract extraction History of cholecystectomy (~02/2021) History of DVT (deep vein thrombosis) History of esophagogastroduodenoscopy (EGD) History of inguinal hernia repair History of umbilical hernia repair Hx of colonoscopy Social History Social History Household Members: Other Household Members Other:: roommate Housing: House Are you a primary laboratory animal care veterinarian to a significant other at home: No Do you presently have visiting nurse or other home services: No Alcohol intake: former Year quit: 2017 Patient Tobacco Use Status: Never used Tobacco Use of substances other than those prescribed or required for medical reasons: No Have you been hit, kicked, punched, or otherwise hurt by someone within the past year? If so, by whom?: No Are you DNR?: No Advance Directives: Yes Advance Directives Information Provided: No Advance Directives on File: Yes Advance Directives Date on File: 03/16/21 Recently lost weight without trying: No Poor oral hygiene: No (full dentures) service: No Current occupational status: disabled Cognitive needs: Yes Hearing needs: No Vision needs: Yes Meds Allergies Allergy/AdvReac Type Severity Reaction Status Date / Time alfuzosin AdvReac Intermediate Dizziness Verified 03/18/22 07:52 benztropine [Cogentin] AdvReac Intermediate Dizziness Verified 03/13/22 10:29 terazosin AdvReac Intermediate Dizziness Verified 03/13/22 10:29 Home Medications Medication Instructions Recorded Confirmed Last Taken Type carbidopa 25 mg-levodopa 100 mg 1 tab PO TID 07/07/20 03/13/22 03/11/21 History tablet carbidopa ER 50 mg-levodopa 200 mg 1 tab PO TID 07/07/20 03/13/22 03/18/22 History tablet,extended release hjqpsfijamas-xcwdgchm-ubmpga tablet 1 tab PO DAILY 03/12/21 03/13/22 Unknown History aspirin 81 mg tablet,delayed 81 mg PO DAILY 09/05/21 03/13/22 03/10/22 History release Exam Exam Date and Time: March 15, 2022 121 Height,Weight and Vital Signs: Height 6 ft Weight 95.254 kg Assessment and Plan Assessment Anesthesia Assessment: Chart Reviewed Documented by User: Regina Aggarwal MD 03/18/22 10:16 PMFSH Active Problems Active Problems: All Active Problems (Updated 01/15/22 @ 09:57 by Daniel Alvarez MD) Incomplete emptying of bladder due to benign prostatic hyperplasia (Acute) Anxiety and depression (Acute) Hyperglycemia (Acute) Low vitamin D level (Acute) DVT of popliteal vein (Acute) Varicose veins of left lower extremity with inflammation (Acute) Varicose veins of right lower extremity with inflammation (Acute) Parkinsons disease (Acute) Essential hypertension (Acute) Injury of nail (Acute) Left hip pain (Acute) Erectile dysfunction (Acute) Hydrocele (Acute) Hiatal hernia (Acute) GERD with esophagitis (Acute) Close exposure to 2019 novel coronavirus (Acute) Chronic constipation (Acute) Colon cancer screening (Acute) Positive FIT (fecal immunochemical test) (Acute) Low back pain (Acute) Impotence (Acute) Skin rash (Acute) Peripheral neuropathy (Acute) Past Medical History Medical History Anxiety and depression Arthritis GERD (gastroesophageal reflux disease) History of alcohol abuse Hx of subdural hematoma Impotence Left hip pain Low vitamin B12 level Parkinsons disease Peripheral neuropathy Sciatic pain Skin rash Tension headache Family History Family History Father Diabetes H/O heart bypass surgery Depression Mother Heart problem Depression Brother Hypertension Maternal Uncle Alcoholism Substance use disorder Other Mental health disorder Family history of problems with anesthesia: No Surgical History Surgical History History of bilateral cataract extraction History of cholecystectomy (~02/2021) History of DVT (deep vein thrombosis) History of esophagogastroduodenoscopy (EGD) History of inguinal hernia repair History of umbilical hernia repair Hx of colonoscopy History of Problems with Anesthesia: No Social History Social History Household Members: Other Household Members Other:: roommate Housing: House Are you a primary laboratory animal care veterinarian to a significant other at home: No Do you presently have visiting nurse or other home services: No Alcohol intake: former Year quit: 2017 Patient Tobacco Use Status: Never used Tobacco Use of substances other than those prescribed or required for medical reasons: No Have you been hit, kicked, punched, or otherwise hurt by someone within the past year? If so, by whom?: No Are you DNR?: No Advance Directives: Yes Advance Directives Information Provided: No Advance Directives on File: Yes Advance Directives Date on File: 03/16/21 Recently lost weight without trying: No Poor oral hygiene: No (full dentures) service: No Current occupational status: disabled Cognitive needs: Yes Hearing needs: No Vision needs: Yes Meds Allergies Allergy/AdvReac Type Severity Reaction Status Date / Time alfuzosin AdvReac Intermediate Dizziness Verified 03/18/22 07:52 benztropine [Cogentin] AdvReac Intermediate Dizziness Verified 03/13/22 10:29 terazosin AdvReac Intermediate Dizziness Verified 03/13/22 10:29 Home Medications Medication Instructions Recorded Confirmed Last Taken Type carbidopa 25 mg-levodopa 100 mg 1 tab PO TID 07/07/20 03/13/22 03/11/21 History tablet carbidopa ER 50 mg-levodopa 200 mg 1 tab PO TID 07/07/20 03/13/22 03/18/22 History tablet,extended release qorxbfcowsyt-rtwmztol-fvtclo tablet 1 tab PO DAILY 03/12/21 03/13/22 Unknown History aspirin 81 mg tablet,delayed 81 mg PO DAILY 09/05/21 03/13/22 03/10/22 History release Exam Height,Weight and Vital Signs: Height 6 ft Weight 95.254 kg Vital Signs Temp Pulse Resp BP Pulse Ox O2 Del Method 03/18/22 08:53 98.1 F 85 18 148/77 H 98 Room Air 03/18/22 07:57 98.1 F 85 18 148/77 H 98 Room Air Airway Mallampati Class: II TM Dist: >3cm Neck ROM: Full Denture: Upper and Lower Heart: RRR Lungs: CTAB Assessment and Plan Assessment Anesthesia Assessment: Anesthesia Plan Discussed Final Anesthetic Review Family History of Problems with Anesthesia: No History of Problems with Anesthesia: No NPO: Yes ASA Class: III Final Preanesthetic Review: No Changes in Pt Med Stat, Meds/Allgs Chart Reviewed, Consent Obtained/Reviewed and Anes Risks/Benef Reviewed Patient Risk: Intermediate Procedure Risk: Low Assessment/Block/Sedation in SS: Assess/Block/Sedation-SS Anesthetic Plan Anesthetic Plan: GA Disposition: Standard PACU
[2022-03-18] VITALS (8 sets, daily range): BP systolic 106–148; BP diastolic 56–79; PULSE 73–85; RESP 12–18; TEMP 36.1–37.3; O2SAT 96–100
[2022-03-18] MEDS: Lactated Ringers 1,000 ML 100 ML IVCONT (08:04)
--- NOTE | 2022-03-18 08:53 | PC.NURSE ---
author asked dr. mayo to assess right upper arm of patient. patient stated was stung two days ago. slightly raised, red superficial area. dr. mayo stated okay to proceed.
--- NOTE | 2022-03-18 09:12 | MHC.SHP ---
Pre-Procedural Eval Section A Date of Service: 03/18/22 The patient is an INPATIENT: No Changes since office visit: No Cold of Flu in the past 2 weeks, No New Medical Problems, No Changes in Medication and No Patient answered all questions The History & Physical has been completed within 30 days and I have reviewed it.: Yes Section B Chief Complaint: Hydrocele,Benign prostatic hyperplasia with lower Details of Present Illness: cystoscopy, transurethral incision of the prostate, right hydrocele drainage with sclerosis Allergies: Allergies Allergy/AdvReac Type Severity Reaction Status Date / Time alfuzosin AdvReac Intermediate Dizziness Verified 03/18/22 07:52 benztropine [Cogentin] AdvReac Intermediate Dizziness Verified 03/13/22 10:29 terazosin AdvReac Intermediate Dizziness Verified 03/13/22 10:29 Review of Systems Sugical H&P ROS: Negative: Constitution, Cardiovascular, Respiratory, Neurological, Psychiatric, Hem-Onc, Allergic/Immunologic, Gastrointestinal, Genitourinary, Musculoskeletal, Integumentary, Endocrine and Eyes/Ears/Nose/Throat Exam Surgical H&P Exam: Normal: HEENT, Normal: Heart, Normal: Lungs, Normal: Extremities, Normal: Abdomen, Normal: Skin and Normal: Neurological Plan Diagnosis/Plan: Unchanged I have reviewed the history and physical and performed a pertinent physical examination on my patient. No changes have occurred unless specified.
--- NOTE | 2022-03-18 10:20 | W.PM.OPN ---
Operative Note Operative Note Date of Service: 03/18/22 Narrative: PreOperative Diagnosis: Bladder outlet obstruction with right hydrocele Post Operative Diagnosis: Bladder outlet obstruction with right hydrocele Procedure: hydrocele drainage with sclerosis and transurethral incision of the prostate Surgeon: Dr Daniel Alvarez Anesthesia: General Indications for procedure: weakness of stream with background of Parkinson's in failure to respond alpha-fred due to blood pressure related issues. Right hydrocele History of bladder outlet obstruction. Treated with alpha-fred which he was unable to tolerate. Cystoscopy had tight bladder neck. Procedure: After informed consent was verified the patient was brought to the operating room and placed in a supine position. Anesthesia was administered per protocol. Patient was placed in modified dorsal lithotomy position and prepped and draped in a sterile fashion. Safety pause time-out was confirmed. Antibiotics have been given. The right hydrocele was prepped with Betadine. 10 cc of Ropivacaine lidocaine mix was placed in the right cord. 16 gauge Angiocath placed into hydrocele sac and approximately 100 cc of fluid drained. 10 cc of ropivacaine mixed with 200 mg of doxycycline was injected into the Angiocath for sclerosis effect Twenty-four Albanian resectoscope was inserted per urethra. No abnormalities found the anterior posterior urethra. The bladder was filled on both ureteric orifices were seen in normal position away from our area of interest. using a Pacheco knife with settings of 120 and 70 on the Bovie incisions were made from approximately 1.5 cm distal to each ureteric orifice down to the veru. These incisions were developed in layers until fibers of the bladder neck was seen. Cautery was performed on the edges of the tissue in order to control postprocedure bleeding. A 22 Albanian 30 cc balloon Ramos catheter was placed over stylet into the bladder. Clear efflux was obtained. 30 cc was placed in the balloon and gentle traction was placed. A snap was used to hold tension once the patient will be moved and transported. Once transportation its finish this novel be removed. He tolerated procedure well was extubated in the operating and transferred in a stable condition to the recovery area. Pathology: None Drains: Ramos catheter
[2022-03-18] MEDS: Acetaminophen 325 MG TABLET 650 MG PO (10:42)
[2022-03-18] MEDS: Phenazopyridine HCL 100 MG TABLET PO (10:42)
== END 2022-03-18 11:55 | disposition home or self-care (01) ==
PROVIDERS: PCP Internal Medicine; Visit Provider Urology
PROC: (CPT 55060; principal; 2022-03-18 08:50)
DX: N32.0 Bladder-neck obstruction (principal); N43.3 Hydrocele, unspecified; N52.9 Male erectile dysfunction, unspecified; R39.12 Poor urinary stream; G20 Parkinson's disease; G62.9 Polyneuropathy, unspecified; G44.209 Tension-type headache, unspecified, not intractable; F41.8 Other specified anxiety disorders; F10.11 Alcohol abuse, in remission; E55.9 Vitamin D deficiency, unspecified; Z86.79 Personal history of other diseases of the circulatory system; Z88.8 Allergy status to other drugs, medicaments and biological substances
CPT/HCPCS: 55000; 52450; J1956; J2250; J2795; J3010

== ENCOUNTER → 2022-05-07 09:30 | Outpatient (BNVA) | payer MEDICARE, MEDICAID, SELFPAY | PROVIDERS: PCP Internal Medicine; Visit Provider Psychiatry & Neurology Neurology | DX: G20 Parkinson's disease (principal); K59.00 Constipation, unspecified; F41.9 Anxiety disorder, unspecified; F32.A Depression, unspecified; Z79.899 Other long term (current) drug therapy | CPT/HCPCS: 99212 ==

== ENCOUNTER → 2022-05-08 10:34 | Outpatient (BNVA) | payer MEDICARE, MEDICAID, SELFPAY | PROVIDERS: PCP Internal Medicine; Visit Provider Urology | DX: R35.1 Nocturia (principal) | CPT/HCPCS: 99212 ==

== ENCOUNTER 2022-08-21 13:50 | Outpatient (REF) | payer MEDICARE, MEDICAID, SELFPAY ==
--- NOTE | ~2022-08-21 | US_ITS ---
EXAMINATION: US SCROTUM CLINICAL INFORMATION: Hydrocele, unspecified. COMPARISON: None. TECHNIQUE: A sonogram of the scrotum was performed assessing gage-scale appearance and color Doppler flow. Spectral Doppler analysis of the arterial and venous flow were performed in the testes bilaterally. FINDINGS: RIGHT: Right testicle measures 4.9 x 3.0 x 2.7 cm, volume 20.8 mL. No focal testicular parenchymal lesions are visualized. Spectral Doppler analysis of the arterial and venous flow is normal in the right testis. Right epididymal head is normal in size. There is a 3.6 x 2.3 x 3.1 cyst with a septation superior to the right testicle which may represent a loculated hydrocele. No fluid is seen around the testis itself. No right varicocele is seen. Right epididymal Doppler flow is normal. LEFT: Left testicle measures 4.5 x 2.5 x 3.2 cm, volume 18.8 mL. No focal testicular parenchymal lesions are visualized. There is tubular ectasia of the rete testis. Spectral Doppler analysis of the arterial and venous flow is normal in the left testis. Left epididymal head is normal in size. The 3 mm cyst is present in the head of the left epididymis. No left hydrocele is seen. A small left varicocele is present. Left epididymal Doppler flow is normal. US/US scrotum IMPRESSION: 1. No evidence of testicular torsion or malignancy. 2. 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 3. Septated cyst superior to the right testicle, probably a loculated hydrocele. 4. Small cyst head of left epididymis. 5. Small left varicocele.
== END 2022-08-21 13:51 | disposition home or self-care (01) ==
LOC: HO.US 13:50
PROVIDERS: Visit Provider Urology
DX: N43.3 Hydrocele, unspecified (principal)
CPT/HCPCS: 76870

== ENCOUNTER → 2022-09-05 14:48 | Outpatient (BNVA) | payer MEDICARE, MEDICAID, SELFPAY | PROVIDERS: PCP Internal Medicine; Visit Provider Urology | DX: N40.1 Benign prostatic hyperplasia with lower urinary tract symptoms (principal); R33.9 Retention of urine, unspecified; R35.1 Nocturia; N52.9 Male erectile dysfunction, unspecified; N43.3 Hydrocele, unspecified | CPT/HCPCS: Q3014 ==

== ENCOUNTER → 2022-11-05 15:01 | Outpatient (BNVA) | payer MEDICARE, MEDICAID, SELFPAY | PROVIDERS: PCP Internal Medicine; Visit Provider Urology | DX: N40.1 Benign prostatic hyperplasia with lower urinary tract symptoms (principal); R35.1 Nocturia; R33.9 Retention of urine, unspecified; N43.3 Hydrocele, unspecified | CPT/HCPCS: Q3014 ==

== ENCOUNTER 2022-11-07 11:32 | Emergency (ER) | payer MEDICARE, MEDICAID, SELFPAY ==
--- NOTE | ~2022-11-07 | CT_ITS ---
EXAMINATION: CT ABDOMEN AND PELVIS WITH CONTRAST CLINICAL INFORMATION: Left upper quadrant pain after falling COMPARISON: None available. TECHNIQUE: Multidetector volumetric images were obtained from the superior aspect of the liver through the pubic symphysis following administration 85 mL of Omnipaque 350 intravenous contrast. Sagittal and coronal reformatted images were obtained on the technologist's workstation. Oral contrast: No This CT examination was performed using dose optimization techniques as appropriate, variously including the following: *Automated exposure control *Adjustment of mA and/or kV according to patient size (this includes techniques or standardized protocols for targeted exams where dose is matched to indication/reason for exam; i.e. extremities or head) *Use of iterative reconstruction technique DLP: 915.5 mGy-cm FINDINGS: LIVER, GALLBLADDER, AND BILIARY TREE: Occasional small hypodense foci of the liver, too small to characterize. Status post cholecystectomy. PANCREAS: Fatty infiltration. SPLEEN: Mildly enlarged at 13.8 cm. No distinct laceration or perisplenic free fluid seen. ADRENAL GLANDS: Unremarkable. KIDNEYS AND URETERS: Cysts of the inferior left kidney, for which no further follow-up recommended. No nephrolithiasis or perinephric infiltrative changes. Duplex left kidney. BLADDER: Wall thickening likely related to lack of distention. GASTROINTESTINAL TRACT: Low rectal wall thickening which may be related to lack of distention although proctitis is a consideration. Large colonic fecal material. Mild wall thickening at the distal transverse level which may be related to lack of distention however direct visualization would be recommended. Appendix not well seen. ABDOMINAL WALL: No significant hernia identified. No appreciable abdominal wall hematomas. LYMPH NODES: No suspiciously enlarged lymphadenopathy. VASCULAR: Atherosclerotic change. IVC filter in position. PELVIC VISCERA: Small prostate impression at the urinary bladder base. OSSEOUS STRUCTURES: Spondylosis and degenerative disc space narrowing. No acute compression fractures. CT/CT abdomen pelvis w IV con IMPRESSION: No CT evidence for large organ laceration. Spleen mildly enlarged. Low rectal wall thickening may be related to lack of distention although proctitis is a consideration. Constipated colon. Mild wall thickening at the distal transverse colonic level may be related to lack of distention however direct visualization would be recommended. No appreciable abdominal wall hematomas. Other incidental findings as noted above. Fleischner guidelines were followed.
--- NOTE | ~2022-11-07 | CT_ITS ---
EXAMINATION: CT CHEST WITH CONTRAST CLINICAL INFORMATION: Left-sided rib pain COMPARISON: None available. TECHNIQUE: Multidetector volumetric CT imaging of the chest was obtained after the administration of 50 mL of Omnipaque 350 intravenous contrast without immediate adverse reactions. Axial MIP volume rendering provided. Sagittal and coronal reformatted images were obtained. This CT examination was performed using dose optimization techniques as appropriate, variously including the following: *Automated exposure control *Adjustment of mA and/or kV according to patient size (this includes techniques or standardized protocols for targeted exams where dose is matched to indication/reason for exam; i.e. extremities or head) *Use of iterative reconstruction technique DLP: 1343 mGy-cm FINDINGS: STEAM CONDITIONER FILLING: Unremarkable. LUNGS: The lungs are well-expanded and clear of acute pneumonic process. There is no pulmonary nodule, mass, consolidation or contusion. MEDIASTINUM: The thyroid lobes are symmetric and normal. The central trachea and bronchi are widely patent. There is no pericardial effusion. The heart size and the great vessels are normal caliber. No coronary artery calcifications are seen. No abnormal size mediastinal or hilar lymph nodes. PLEURA: There is no pleural effusion. No pleural mass or thickening. AXILLA: No lymphadenopathy. UPPER ABDOMEN: Visualized liver, spleen, pancreas and bilateral adrenal glands unremarkable. The gallbladder has been removed. OSSEOUS STRUCTURES: There is exaggerated thoracic kyphosis. The vertebral heights, alignment and disc heights are normal. No visible left rib pain seen on CT chest exam. CT/CT chest w IV con IMPRESSION: Unremarkable CT chest exam. Especially there is no left rib fracture seen. Fleischner guidelines were followed.
[2022-11-07 11:42] VITALS: BP 108/64; PULSE 82; RESP 18; TEMP 36.6; O2SAT 99; BMI 30.3
--- NOTE | 2022-11-07 11:43 | ED.CHESTPAIN ---
HPI - Chest Pain General Chief Complaint: Abdominal Pain <MARCY Yu Last Filed: 11/07/22 11:48> Stated Complaint: Fall 1 wk ago/Pain when breathing <MARCY Yu - Last Filed: 11/07/22 11:48> Time Seen by Provider: 11/07/22 13:32 <MARCY Yu - Last Filed: 11/07/22 11:48> Source: patient <MARCY Arriola Last Filed: 11/07/22 17:05> Mode of arrival: ambulatory <MARCY Arriola Last Filed: 11/07/22 17:05> Limitations: no limitations <MARCY Arriola Last Filed: 11/07/22 17:05> History of Present Illness HPI narrative: 72 y.o male w/ a PMHx of Parkinson's disease, chronic constipation, DVT, HTN, hiatal hernia, colon cancer, and anxiety, who presents to the ED c/o of L rib pain s/p mechanical fall at home ~1 week ago. Patient states he was getting into bed when he slipped and hit his rib cage on an unknown surface. He reports pain is worse with inspiration, and some mild tenderness in the LUQ of abdomen. Denies head trauma, LOC, fevers, chills, chest pain, SOB, back pain, new urinary symptoms, nausea/vomiting, or diarrhea, or any further injuries associated with his fall. <MARCY Arriola - Last Filed: 11/07/22 17:05> Pain radiation: none <MARCY Arriola Last Filed: 11/07/22 17:05> Severity: mild <MARCY Arriola Last Filed: 11/07/22 17:05> Pain scale (0-10): 4 <MARCY Arriola Last Filed: 11/07/22 17:05> Relieving factors: nothing <MARCY Arriola Last Filed: 11/07/22 17:05> Exacerbating factors: inspiration <MARCY Arriola Last Filed: 11/07/22 17:05> Treatment prior to arrival: none <MARCY Arriola Last Filed: 11/07/22 17:05> Related Data Home Medications: Home Medications Medication Instructions Recorded Confirmed [id number] tablet 1 tab PO DAILY 03/12/21 09/05/22 aspirin 81 mg tablet,delayed 81 mg PO DAILY 09/05/21 09/05/22 release bisacodyl 5 mg tablet,delayed 10 mg PO BEDTIME 05/07/22 09/05/22 release Previous Rx's Medication Instructions Recorded blood pressure monitor #1 ea 09/05/21 bisacodyl 5 mg tablet 10 mg PO BEDTIME #60 tabs 03/13/22 mirtazapine 7.5 mg tablet 7.5 mg PO BEDTIME #30 tabs 05/07/22 imipramine HCl 25 mg tablet 25 mg PO BEDTIME 30 days #30 tabs 05/08/22 carbidopa ER 50 mg-levodopa 200 mg 1 tab PO TID #270 tabs 07/25/22 tablet,extended release bupropion HCl 150 mg 24 hr tablet, 150 mg PO BID 90 days #180 tabs 08/02/22 extended release (Wellbutrin XL) carbidopa 25 mg-levodopa 100 mg 1 tab PO TID #270 tabs 08/13/22 tablet omeprazole 20 mg capsule,delayed 20 mg PO DAILY #90 caps 08/27/22 release mirabegron 25 mg tablet,extended 25 mg PO DAILY 30 days #30 tabs 09/05/22 release 24 hr diazepam 5 mg tablet 5 mg PO TID anxiety #90 tabs 10/25/22 <MARCY Yu - Last Filed: 11/07/22 11:48> Allergies/Adverse Reactions: Allergies Allergy/AdvReac Type Severity Reaction Status Date / Time alfuzosin AdvReac Intermediate Dizziness Verified 11/05/22 15:02 benztropine [Cogentin] AdvReac Intermediate Dizziness Verified 11/05/22 15:02 terazosin AdvReac Intermediate Dizziness Verified 11/05/22 15:02 <MARCY Yu - Last Filed: 11/07/22 11:48> Review of Systems Constitutional: Constitutional: Reports no additional constitutional complaints, Denies chills, Denies fever(s) and Denies night sweats <MARCY Arriola - Last Filed: 11/07/22 17:05> Eyes: Eyes: Reports no additional eye complaints, Denies blurry vision, Denies change in vision, Denies diplopia, Denies eye discharge, Denies loss of vision and Denies eye pain <MARCY Arriola Last Filed: 11/07/22 17:05> ENT: Denies dizziness <MARCY Arriola - Last Filed: 11/07/22 17:05> Cardiovascular: Cardiovascular: Reports no additional cardiovascular complaints, Denies chest pain, Denies lightheadedness, Denies Loss of Consciousness and Denies dyspnea <MARCY Arriola - Last Filed: 11/07/22 17:05> Respiratory: Respiratory: Reports no additional respiratory complaints, Reports pain on inspiration (In L ribcage) and Denies dyspnea <MARCY Arriola - Last Filed: 11/07/22 17:05> Gastrointestinal: Gastrointestinal: Reports no additional gastrointestinal complaints, Denies abdominal pain, Denies melena, Denies hematochezia, Denies change in bowel habits, Denies change in stool character and Reports constipation (Chronic ) <MARCY Arriola - Last Filed: 11/07/22 17:05> Genitourinary: Genitourinary: Reports no additional male genitourinary complaints, Denies hematuria, Denies oliguria, Denies difficulty urinating, Denies dysuria, Denies urinary frequency, Denies urinary hesitancy, Denies urinary incontinence and Denies urinary urgency <MARCY Arriola - Last Filed: 11/07/22 17:05> Musculoskeletal: Musculoskeletal: Reports no additional musculoskeletal complaints, Denies numbness and Denies tingling <MARCY Arriola - Last Filed: 11/07/22 17:05> Comments: L-sided rib pain <MARCY Arriola - Last Filed: 11/07/22 17:05> Neurologic: Denies dizziness, Denies loss of vision, Denies numbness and Denies tingling <MARCY Arriola - Last Filed: 11/07/22 17:05> Psychiatric: Psychiatric: Reports no additional psychiatric complaints <MARCY Arriola - Last Filed: 11/07/22 17:05> Endocrine: Endocrine: Reports no additional endocrine complaints <MARCY Arriola - Last Filed: 11/07/22 17:05> Hematologic/Lymphatic: Hematologic/Lymphatic: Reports no additional hematologic/lymphatic complaints <MARCY Arriola - Last Filed: 11/07/22 17:05> Allergic/Immunologic: Allergic/Immunologic: Reports no additional allergic/immunologic complaints <MARCY Arriola - Last Filed: 11/07/22 17:05> [facility] Past Medical History Attestation statement: The following information was validated with the patient. <MARCY Arriola - Last Filed: 11/07/22 17:05> Source: old records reviewed and nursing notes reviewed <MARCY Arriola - Last Filed: 11/07/22 17:05> Medical History: Medical History Anxiety and depression Arthritis GERD (gastroesophageal reflux disease) History of alcohol abuse Hx of subdural hematoma Impotence Left hip pain Low vitamin B12 level Parkinsons disease Peripheral neuropathy Sciatic pain Skin rash Tension headache <MARCY Yu - Last Filed: 11/07/22 11:48> Surgical History: Surgical History History of bilateral cataract extraction History of cholecystectomy (~02/2021) History of DVT (deep vein thrombosis) History of esophagogastroduodenoscopy (EGD) History of hydrocelectomy History of inguinal hernia repair History of umbilical hernia repair Hx of colonoscopy Hx of transurethral resection of prostate <MARCY Yu - Last Filed: 11/07/22 11:48> Family History Family History: Family History Father Diabetes H/O heart bypass surgery Depression Mother Heart problem Depression Brother Hypertension Maternal Uncle Alcoholism Substance use disorder Other Mental health disorder <MARCY Yu - Last Filed: 11/07/22 11:48> Social History Social History: Social History Household Members: Other Household Members Other:: roommate Housing: House Are you a primary district manager primary care sales to a significant other at home: No Do you presently have visiting nurse or other home services: No Alcohol intake: former Year quit: 2014 Patient Tobacco Use Status: Never used Tobacco Smoked in Last 30 Days: No Use of substances other than those prescribed or required for medical reasons: No Advance Directives: Yes Advance Directives on File: Yes Advance Directives Date on File: 03/16/21 service: No Current occupational status: disabled Cognitive needs: Yes Hearing needs: No Vision needs: Yes <MARCY Yu - Last Filed: 11/07/22 11:48> Physical Exam Vital Signs: Vital Signs: Last Vital Signs Temp 98.6 F 11/07/22 15:18 Pulse 80 11/07/22 15:18 Resp 16 11/07/22 15:18 BP 173/88 H 11/07/22 15:18 Pulse Ox 99 11/07/22 15:18 O2 Del Method 11/07/22 15:18 BMI result Body Mass Index 30.3 <MARCY Yu - Last Filed: 11/07/22 11:48> Vital Signs: Last Vital Signs Temp 98.6 F 11/07/22 15:18 Pulse 80 11/07/22 15:18 Resp 16 11/07/22 15:18 BP 173/88 H 11/07/22 15:18 Pulse Ox 99 11/07/22 15:18 O2 Del Method 11/07/22 15:18 BMI result Body Mass Index 30.3 <MARCY Arriola - Last Filed: 11/07/22 17:05> Const: General: cooperative, no acute distress, alert and awake <MARCY Arriola - Last Filed: 11/07/22 17:05> Nutritional Appearance: well nourished <MARCY Arriola - Last Filed: 11/07/22 17:05> Orientation/consciousness: patient oriented x3 <MARCY Arriola - Last Filed: 11/07/22 17:05> Limitations: no limitations <MARCY Arriola - Last Filed: 11/07/22 17:05> HEENT: Head: Yes normal to inspection and Yes atraumatic <MARCY Arriola - Last Filed: 11/07/22 17:05> Ears: hearing grossly normal bilaterally and external ears normal <MARCY Arriola - Last Filed: 11/07/22 17:05> General nose exam: Normal external nose present, no nasal discharge noted and no epistaxis <MARCY Arriola - Last Filed: 11/07/22 17:05> Face and sinus: Yes normal facial exam, No abrasion and No laceration <Sandie Blancogurjit PA - Last Filed: 11/07/22 17:05> Mouth: Normal oral and palatal mucosa present, no drooling and no muffled voice <Sandie Blancogurjit PA - Last Filed: 11/07/22 17:05> Eyes: General: appearance normal, both eyes and all related structures <Sandie Blancogurjit PA - Last Filed: 11/07/22 17:05> Periorbital: periorbital findings normal <Sandie Blancogurjit PA - Last Filed: 11/07/22 17:05> Eyelids: Yes eyelids normal <Sandie Blancogurjit PA - Last Filed: 11/07/22 17:05> Conjunctivae: conjunctivae normal <Sandie Blancogurjit PA - Last Filed: 11/07/22 17:05> Pupils: Equal, round and reactive pupils present <Sandieosman Blancogurjit PA - Last Filed: 11/07/22 17:05> EOM: EOMs intact bilaterally <Sandie Blancogurjit PA - Last Filed: 11/07/22 17:05> Neck: Neck: Yes normal visual inspection, Yes full ROM and Yes no lymphadenopathy <Sandie Blancogurjit PA - Last Filed: 11/07/22 17:05> Chest: Chest palpation & inspection: normal inspection of the chest <Sandieosman Blancogurjit PA - Last Filed: 11/07/22 17:05> Resp: Effort & Inspection: normal respiratory effort and able to speak in complete sentences <Sandie Justina PA - Last Filed: 11/07/22 17:05> Auscultation: clear to auscultation bilaterally <Sandie Blancogurjit PA - Last Filed: 11/07/22 17:05> Cardio: Rate: regular rate <Sandieosman Blancogurjit PA - Last Filed: 11/07/22 17:05> Heart sounds: S1 normal heart sound present and S2 normal heart sound present <Sandie Justina PA - Last Filed: 11/07/22 17:05> GI: Inspection: Yes normal to inspection and No abdominal wall ecchymosis <Sandie Justina PA - Last Filed: 11/07/22 17:05> Palpation (GI): Tenderness to palpation present (GI) in the LUQ <Sandie Blancogurjit PA - Last Filed: 11/07/22 17:05> Back/Spine/Pelvis: Other: TTP in L-rib cage beneath nipple line without ecchymosis <Sandie Horn, PA - Last Filed: 11/07/22 17:05> Back: No ecchymosis <Sandie Horn PA - Last Filed: 11/07/22 17:05> Neuro: Other: baseline tremor <Sandie Horn, PA - Last Filed: 11/07/22 17:05> General: patient oriented x3 and moves all extremities <Sandie Blancogurjit PA - Last Filed: 11/07/22 17:05> Cranial nerves: Yes Equal, round and reactive pupils present <Sandie Horn PA - Last Filed: 11/07/22 17:05> Cognition (Neuro): normal cognition <Sandie Blancogurjit PA - Last Filed: 11/07/22 17:05> Motor exam (neuro): 5/5 motor strength present throughout <Sandie Horn PA - Last Filed: 11/07/22 17:05> Sensory Exam: Normal double simultaneous stimulation for sensation <Sandie Blancogurjit PA - Last Filed: 11/07/22 17:05> Coordination: [id number] test normal <Sandie Blancogurjit PA - Last Filed: 11/07/22 17:05> Extrem: General: Yes normal to inspection, Yes full ROM and Yes capillary refill normal <Sandie Blancogurjit PA - Last Filed: 11/07/22 17:05> Psych: Appearance: grossly normal <Sandie Blancogurjit PA - Last Filed: 11/07/22 17:05> Mental Status: mental status grossly normal <Sandie Blancogurjit PA - Last Filed: 11/07/22 17:05> Affect: normal affect <Sandie Justina PA - Last Filed: 11/07/22 17:05> Attitude: cooperative <Sandie Blancogurjit PA - Last Filed: 11/07/22 17:05> Thought process: Normal thought process present <Sandie Justina PA - Last Filed: 11/07/22 17:05> Thought content: Normal thought content present <MARCY Arriola - Last Filed: 11/07/22 17:05> Insight: Good insight present (Psych) <MARCY Arriola - Last Filed: 11/07/22 17:05> Course Course Course Narrative: RME--72yo M w/PMHx Parkinsons, anxiety, GERD c/o left lower ribs/LUQ abdominal since this morning. Reports mechanical fall last week due to Parkinson's, lost balance, denies head trauma or LOC. denies hematuria, SOB Abdomen soft with LUQ tenderness, no rebound or guarding, no rash/zoster EKG, labs, CT chest and abdomen pelvis ordered <MARCY Yu - Last Filed: 11/07/22 11:48> Medications Administered Discontinued Medications Generic Name Dose Route Start Last Admin Trade Name Freq PRN Reason Stop Dose Admin Iohexol 100 ml 11/07/22 14:21 11/07/22 14:21 Iohexol 350 Mg/Ml 100 Ml Infus..Btl IV 11/07/22 14:22 85 ml ONCE ONE Administration <MARCY Yu - Last Filed: 11/07/22 11:48> Medications Administered Discontinued Medications Generic Name Dose Route Start Last Admin Trade Name Freq PRN Reason Stop Dose Admin Iohexol 100 ml 11/07/22 14:21 11/07/22 14:21 Iohexol 350 Mg/Ml 100 Ml Infus..Btl IV 11/07/22 14:22 85 ml ONCE ONE Administration <MARCY Arriola - Last Filed: 11/07/22 17:05> Medical Decision Making Medical Decision Making MDM Narrative: 72 y.o male w/ a PMHx of Parkinson's disease, chronic constipation, DVT, HTN, hiatal hernia, colon cancer, and anxiety, who presents to the ED c/o of L rib pain s/p mechanical fall at home ~1 week ago. On exam patient is well-appearing, NAD, VSS. L rib cage TTP beneath the nipple line without ecchymosis. LUQ of abdomen mildly TTP. lungs CTA bilaterally. Patient's labs were unremarkable. Patient's CT abd/pelvis and chest showed no acute process. I explained all physical exam findings and testing to the patient. I stressed the importance of the patient following up with his primary care provider. I stressed the importance of the patient returning to the emergency department if his symptoms were to worsen or if he were to develop any shortness of breath, chest pain, abd pain, dizziness, lightheadedness, or any other complaints. Patient verbalized agreement and understanding with this treatment plan and discharge. <MARCY Arriola - Last Filed: 11/07/22 17:05> Differential Diagnosis Differential Diagnoses: The differential diagnosis associated with the presentation includes <MARCY Arriola - Last Filed: 11/07/22 17:05> fall, left sided rib pain <MARCY Arriola - Last Filed: 11/07/22 17:05> Lab Data MDM Lab Attestation statement: I reviewed the patient's lab results. <MARCY Arriola - Last Filed: 11/07/22 17:05> Result Diagrams: 11/07/22 12:02 11/07/22 12:02 <MARCY Yu - Last Filed: 11/07/22 11:48> Labs: Lab Results 11/07/22 11/07/22 11/07/22 Range/Units 12:02 12:02 12:02 WBC 8.0 (4.8-10.8) X10*3/uL RBC 4.80 (4.60-5.80) X10*6/uL Hgb 14.0 (14.0-18.0) g/dl Hct 41.8 L (42.0-52.0) % MCV 87.1 (80.0-98.0) fL MCH 29.2 (27.0-33.0) pg MCHC 33.5 (31.0-36.0) g/dl RDW 12.4 (11.0-16.0) % Plt Count 172 (160-400) X10*3/uL MPV 11.5 (9.4-12.4) fL Immature Gran % (Auto) 0.2 (0.0-0.4) % Neut % (Auto) 66.4 (45-73) % Lymph % (Auto) 23.2 (20-40) % Thomas % (Auto) 7.7 (2-11) % Eos % (Auto) 2.1 (0-4) % Baso % (Auto) 0.4 (0-2) % Lymph # (Auto) 1.9 (1.2-4.9) X10*3/uL Thomas # (Auto) 0.6 (0.1-1.2) X10*3/uL Eos # (Auto) 0.2 (0.0-0.4) X10*3/uL Baso # (Auto) 0.0 (0.0-0.2) X10*3/uL Abs Immat Gran (auto) 0.02 (0.00-0.03) X10*3/uL Absolute Neuts (auto) 5.3 (2.0-8.3) x10*3/uL Absolute Nucleated RBC 0.000 (0.0-0.012) X10*3/uL Nucleated RBC % (auto) 0.0 (0.0-0.2) /100WBC PT (10.0-13.1) SEC INR (0.9-1.1) Sodium 142 (135-145) mmol/L Potassium 3.8 (3.3-5.1) mmol/L Chloride 106 (96-108) mmol/L Carbon Dioxide 29 (22-29) mmol/L Anion Gap 11 L (12-20) BUN 13 (9-16) mg/dL Creatinine 0.94 (0.5-1.4) mg/dL Estim Creat Clear Calc 92.7 Estimated GFR > 60 Random Glucose 90 (60-115) mg/dL Calcium 9.1 (8.4-10.2) mg/dL Total Bilirubin 0.8 (0.0-1.0) mg/dL Direct Bilirubin 0.2 (0.0-0.5) mg/dL AST 13 (5-37) U/L ALT < 6 (0-40) U/L Alkaline Phosphatase 68 (39-117) U/L Troponin I High Sens 3.6 (<3.5-35.0) ng/L Total Protein 6.1 L (6.5-8.0) g/dL Albumin 4.0 (3.5-5.0) g/dL Lipase 7 L (8-78) U/L Urine Color Urine Appearance Urine pH (5.0-9.0) Ur Specific [place] (1.005-1.025) Urine Protein (Neg-Trace) mg/dL Urine Glucose (UA) (Negative) mg/dL Urine Ketones (Negative) mg/dL Urine Blood (Negative) Urine Nitrite (Negative) Ur Leukocyte Esterase (Negative) 11/07/22 11/07/22 Range/Units 12:02 14:42 WBC (4.8-10.8) X10*3/uL RBC (4.60-5.80) X10*6/uL Hgb (14.0-18.0) g/dl Hct (42.0-52.0) % MCV (80.0-98.0) fL MCH (27.0-33.0) pg MCHC (31.0-36.0) g/dl RDW (11.0-16.0) % Plt Count (160-400) X10*3/uL MPV (9.4-12.4) fL Immature Gran % (Auto) (0.0-0.4) % Neut % (Auto) (45-73) % Lymph % (Auto) (20-40) % Thomas % (Auto) (2-11) % Eos % (Auto) (0-4) % Baso % (Auto) (0-2) % Lymph # (Auto) (1.2-4.9) X10*3/uL Thomas # (Auto) (0.1-1.2) X10*3/uL Eos # (Auto) (0.0-0.4) X10*3/uL Baso # (Auto) (0.0-0.2) X10*3/uL Abs Immat Gran (auto) (0.00-0.03) X10*3/uL Absolute Neuts (auto) (2.0-8.3) x10*3/uL Absolute Nucleated RBC (0.0-0.012) X10*3/uL Nucleated RBC % (auto) (0.0-0.2) /100WBC PT 12.0 (10.0-13.1) SEC INR 1.0 (0.9-1.1) Sodium (135-145) mmol/L Potassium (3.3-5.1) mmol/L Chloride (96-108) mmol/L Carbon Dioxide (22-29) mmol/L Anion Gap (12-20) BUN (9-16) mg/dL Creatinine (0.5-1.4) mg/dL Estim Creat Clear Calc Estimated GFR Random Glucose (60-115) mg/dL Calcium (8.4-10.2) mg/dL Total Bilirubin (0.0-1.0) mg/dL Direct Bilirubin (0.0-0.5) mg/dL AST (5-37) U/L ALT (0-40) U/L Alkaline Phosphatase (39-117) U/L Troponin I High Sens (<3.5-35.0) ng/L Total Protein (6.5-8.0) g/dL Albumin (3.5-5.0) g/dL Lipase (8-78) U/L Urine Color Yellow Urine Appearance Clear Urine pH 6.0 (5.0-9.0) Ur Specific [place] 1.015 (1.005-1.025) Urine Protein Negative (Neg-Trace) mg/dL Urine Glucose (UA) Negative (Negative) mg/dL Urine Ketones Negative (Negative) mg/dL Urine Blood Negative (Negative) Urine Nitrite Negative (Negative) Ur Leukocyte Esterase Negative (Negative) <MARCY Yu - Last Filed: 11/07/22 11:48> Lab Results 11/07/22 11/07/22 11/07/22 Range/Units 12:02 12:02 12:02 WBC 8.0 (4.8-10.8) X10*3/uL RBC 4.80 (4.60-5.80) X10*6/uL Hgb 14.0 (14.0-18.0) g/dl Hct 41.8 L (42.0-52.0) % MCV 87.1 (80.0-98.0) fL MCH 29.2 (27.0-33.0) pg MCHC 33.5 (31.0-36.0) g/dl RDW 12.4 (11.0-16.0) % Plt Count 172 (160-400) X10*3/uL MPV 11.5 (9.4-12.4) fL Immature Gran % (Auto) 0.2 (0.0-0.4) % Neut % (Auto) 66.4 (45-73) % Lymph % (Auto) 23.2 (20-40) % Thomas % (Auto) 7.7 (2-11) % Eos % (Auto) 2.1 (0-4) % Baso % (Auto) 0.4 (0-2) % Lymph # (Auto) 1.9 (1.2-4.9) X10*3/uL Thomas # (Auto) 0.6 (0.1-1.2) X10*3/uL Eos # (Auto) 0.2 (0.0-0.4) X10*3/uL Baso # (Auto) 0.0 (0.0-0.2) X10*3/uL Abs Immat Gran (auto) 0.02 (0.00-0.03) X10*3/uL Absolute Neuts (auto) 5.3 (2.0-8.3) x10*3/uL Absolute Nucleated RBC 0.000 (0.0-0.012) X10*3/uL Nucleated RBC % (auto) 0.0 (0.0-0.2) /100WBC PT (10.0-13.1) SEC INR (0.9-1.1) Sodium 142 (135-145) mmol/L Potassium 3.8 (3.3-5.1) mmol/L Chloride 106 (96-108) mmol/L Carbon Dioxide 29 (22-29) mmol/L Anion Gap 11 L (12-20) BUN 13 (9-16) mg/dL Creatinine 0.94 (0.5-1.4) mg/dL Estim Creat Clear Calc 92.7 Estimated GFR > 60 Random Glucose 90 (60-115) mg/dL Calcium 9.1 (8.4-10.2) mg/dL Total Bilirubin 0.8 (0.0-1.0) mg/dL Direct Bilirubin 0.2 (0.0-0.5) mg/dL AST 13 (5-37) U/L ALT < 6 (0-40) U/L Alkaline Phosphatase 68 (39-117) U/L Troponin I High Sens 3.6 (<3.5-35.0) ng/L Total Protein 6.1 L (6.5-8.0) g/dL Albumin 4.0 (3.5-5.0) g/dL Lipase 7 L (8-78) U/L Urine Color Urine Appearance Urine pH (5.0-9.0) Ur Specific [place] (1.005-1.025) Urine Protein (Neg-Trace) mg/dL Urine Glucose (UA) (Negative) mg/dL Urine Ketones (Negative) mg/dL Urine Blood (Negative) Urine Nitrite (Negative) Ur Leukocyte Esterase (Negative) 11/07/22 11/07/22 Range/Units 12:02 14:42 WBC (4.8-10.8) X10*3/uL RBC (4.60-5.80) X10*6/uL Hgb (14.0-18.0) g/dl Hct (42.0-52.0) % MCV (80.0-98.0) fL MCH (27.0-33.0) pg MCHC (31.0-36.0) g/dl RDW (11.0-16.0) % Plt Count (160-400) X10*3/uL MPV (9.4-12.4) fL Immature Gran % (Auto) (0.0-0.4) % Neut % (Auto) (45-73) % Lymph % (Auto) (20-40) % Thomas % (Auto) (2-11) % Eos % (Auto) (0-4) % Baso % (Auto) (0-2) % Lymph # (Auto) (1.2-4.9) X10*3/uL Thomas # (Auto) (0.1-1.2) X10*3/uL Eos # (Auto) (0.0-0.4) X10*3/uL Baso # (Auto) (0.0-0.2) X10*3/uL Abs Immat Gran (auto) (0.00-0.03) X10*3/uL Absolute Neuts (auto) (2.0-8.3) x10*3/uL Absolute Nucleated RBC (0.0-0.012) X10*3/uL Nucleated RBC % (auto) (0.0-0.2) /100WBC PT 12.0 (10.0-13.1) SEC INR 1.0 (0.9-1.1) Sodium (135-145) mmol/L Potassium (3.3-5.1) mmol/L Chloride (96-108) mmol/L Carbon Dioxide (22-29) mmol/L Anion Gap (12-20) BUN (9-16) mg/dL Creatinine (0.5-1.4) mg/dL Estim Creat Clear Calc Estimated GFR Random Glucose (60-115) mg/dL Calcium (8.4-10.2) mg/dL Total Bilirubin (0.0-1.0) mg/dL Direct Bilirubin (0.0-0.5) mg/dL AST (5-37) U/L ALT (0-40) U/L Alkaline Phosphatase (39-117) U/L Troponin I High Sens (<3.5-35.0) ng/L Total Protein (6.5-8.0) g/dL Albumin (3.5-5.0) g/dL Lipase (8-78) U/L Urine Color Yellow Urine Appearance Clear Urine pH 6.0 (5.0-9.0) Ur Specific [place] 1.015 (1.005-1.025) Urine Protein Negative (Neg-Trace) mg/dL Urine Glucose (UA) Negative (Negative) mg/dL Urine Ketones Negative (Negative) mg/dL Urine Blood Negative (Negative) Urine Nitrite Negative (Negative) Ur Leukocyte Esterase Negative (Negative) <MARCY Arriola - Last Filed: 11/07/22 17:05> Independent Interpretation I performed an independent interpretation of an: CT Scan <MARCY Arriola - Last Filed: 11/07/22 17:05> Interpretation: My interpretation is in agreement with the radiologist's impression of these imaging studies. EXAMINATION: CT CHEST WITH CONTRAST CLINICAL INFORMATION: Left-sided rib pain? COMPARISON: None available.? ? TECHNIQUE: Multidetector volumetric CT imaging of the chest was obtained after the administration of 50 mL of Omnipaque 350 intravenous contrast without immediate adverse reactions. Axial MIP volume rendering provided. Sagittal and coronal reformatted images were obtained. This CT examination was performed using dose optimization techniques as appropriate, variously including the following: *Automated exposure control *Adjustment of mA and/or kV according to patient size (this includes techniques or standardized protocols for targeted exams where dose is matched to indication/reason for exam; i.e. 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 LUNGS: The lungs are well-expanded and clear of acute pneumonic process. There is no pulmonary nodule, mass, consolidation or contusion.? MEDIASTINUM: The thyroid lobes are symmetric and normal. The central trachea and bronchi are widely patent. There is no pericardial effusion. The heart size and the great vessels are normal caliber. No coronary artery calcifications are seen. No abnormal size mediastinal or hilar lymph nodes. PLEURA: There is no pleural effusion. No pleural mass or thickening.? AXILLA: No lymphadenopathy.? UPPER ABDOMEN: Visualized liver, spleen, pancreas and bilateral adrenal glands unremarkable. The gallbladder has been removed.? OSSEOUS STRUCTURES: There is exaggerated thoracic kyphosis. The vertebral heights, alignment and disc heights are normal. No visible left rib pain seen on CT chest exam. CT/CT chest w IV con IMPRESSION: Unremarkable CT chest exam. Especially there is no left rib fracture seen. ? Fleischner guidelines were followed. Dictated By: Suleman Barnett MD Signed By: Electronically signed by Suleman Barnett MD 11/07/22 1607 EXAMINATION: CT ABDOMEN AND PELVIS WITH CONTRAST? CLINICAL INFORMATION: Left upper quadrant pain after falling? COMPARISON: None available. ? TECHNIQUE: Multidetector volumetric images were obtained from the superior aspect of the liver through the pubic symphysis following administration 85 mL of Omnipaque 350 intravenous contrast. Sagittal and coronal reformatted images were obtained on the technologist's workstation.? Oral contrast: No This CT examination was performed using dose optimization techniques as appropriate, variously including the following: *Automated exposure control *Adjustment of mA and/or kV according to patient size (this includes techniques or standardized protocols for targeted exams where dose is matched to indication/reason for exam; i.e. extremities or head) *Use of iterative reconstruction technique DLP: 915.5 mGy-cm FINDINGS: LIVER, GALLBLADDER, AND BILIARY TREE: Occasional small hypodense foci of the liver, too small to characterize. Status post cholecystectomy.? PANCREAS: Fatty infiltration.? SPLEEN: Mildly enlarged at 13.8 cm. No distinct laceration or perisplenic free fluid seen.? ADRENAL GLANDS: Unremarkable.? KIDNEYS AND URETERS: Cysts of the inferior left kidney, for which no further follow-up recommended. No nephrolithiasis or perinephric infiltrative changes. Duplex left kidney. BLADDER: Wall thickening likely related to lack of distention.? GASTROINTESTINAL TRACT: Low rectal wall thickening which may be related to lack of distention although proctitis is a consideration. Large colonic fecal material. Mild wall thickening at the distal transverse level which may be related to lack of distention however direct visualization would be recommended. Appendix not well seen. ABDOMINAL WALL: No significant hernia identified. No appreciable abdominal wall hematomas.? LYMPH NODES: No suspiciously enlarged lymphadenopathy. VASCULAR: Atherosclerotic change. IVC filter in position. PELVIC VISCERA: Small prostate impression at the urinary bladder base. OSSEOUS STRUCTURES: Spondylosis and degenerative disc space narrowing. No acute compression fractures.? CT/CT abdomen pelvis w IV con IMPRESSION: No CT evidence for large organ laceration. Spleen mildly enlarged. ? Low rectal wall thickening may be related to lack of distention although proctitis is a consideration. Constipated colon. Mild wall thickening at the distal transverse colonic level may be related to lack of distention however direct visualization would be recommended. ? No appreciable abdominal wall hematomas. ? Other incidental findings as noted above. ? Fleischner guidelines were followed. Dictated By: Zander Tyson Signed By: Electronically signed by Zander Tyson 11/07/22 1630 <MARCY Arriola - Last Filed: 11/07/22 17:05> Discharge Plan Discharge Clinical Impression: Fall <MARCY Yu - Last Filed: 11/07/22 11:48> Patient Disposition: Home, Self-Care <MARCY Yu Last Filed: 11/07/22 11:48> Instructions: Fall Prevention (ED) <MARCY Yu Last Filed: 11/07/22 11:48> Additional Instructions: Follow up with your primary care provider. Return to the emergency department immediately if your symptoms worsen or if you develop any dizziness, shortness of breath, difficulty breathing, chest pain, blurry vision, loss of vision, nausea, vomiting, abdominal pain, fever, chills, back pain, or any other complaints. <MARCY Yu - Last Filed: 11/07/22 11:48> Prescriptions: No Action bisacodyl 5 mg tablet 10 mg PO BEDTIME Qty: 60 0RF carbidopa-levodopa 50-200 mg tablet extended release 1 tab PO TID Qty: 270 3RF bupropion HCl [Wellbutrin XL] 150 mg tablet extended release 24 hr 150 mg PO BID 90 Days Qty: 180 0RF carbidopa-levodopa 25-100 mg tablet 1 tab PO TID Qty: 270 6RF omeprazole 20 mg capsule,delayed release(DR/EC) 20 mg PO DAILY Qty: 90 0RF diazepam 5 mg tablet 5 mg PO TID Qty: 90 0RF kjyvldhygcaw-kxuaeqkz-aihcfn Tablet 1 tab PO DAILY aspirin 81 mg tablet,delayed release (DR/EC) 81 mg PO DAILY (DME) blood pressure monitor Kit See Rx Instructions .Route Qty: 1 0RF Rx Instructions: As directed mirtazapine 7.5 mg tablet 7.5 mg PO BEDTIME Qty: 30 6RF bisacodyl 5 mg tablet,delayed release (DR/EC) 10 mg PO BEDTIME imipramine HCl 25 mg tablet 25 mg PO BEDTIME 30 Days Qty: 30 1RF mirabegron 25 mg tablet extended release 24 hr 25 mg PO DAILY 30 Days Qty: 30 1RF <MARCY Yu - Last Filed: 11/07/22 11:48> Referrals: Ventura Multani MD [Primary Care Provider] - <MARCY Yu - Last Filed: 11/07/22 11:48> Print Language: Israeli <MARCY Yu - Last Filed: 11/07/22 11:48>
--- NOTE | 2022-11-07 11:44 | ECG_ITS ---
Test Reason : abd pain Blood Pressure : / mmHG Vent. Rate : 072 BPM Atrial Rate : 072 BPM P-R Int : 136 ms QRS Dur : 086 ms QT Int : 376 ms P-R-T Axes : 041 006 039 degrees QTc Int : 411 ms Normal sinus rhythm Normal ECG No previous ECGs available Referred By: Darling Hollins Electronically Signed By:Alan Murphy
[2022-11-07 12:10] LABS: MANUAL DIFF FLAG NO
[2022-11-07 12:12] LABS: Basophils Percent Auto 0.4 % (0-2); Eosinophils Absolute Auto 0.2 X10*3/uL (0.0-0.4); Eosinophils Percent Auto 2.1 % (0-4); Hematocrit 41.8 % (42.0-52.0); Imm Gran Abs Auto 0.02 X10*3/uL (0.00-0.03); Imm Gran Pct Auto 0.2 % (0.0-0.4); Lymphocytes Absolute Auto 1.9 X10*3/uL (1.2-4.9); Lymphocytes Percent Auto 23.2 % (20-40); Mean Corpuscular HGB Conc 33.5 g/dl (31.0-36.0); Mean Corpuscular Hemoglobin 29.2 pg (27.0-33.0); Mean Corpuscular Volume 87.1 fL (80.0-98.0); Mean Platelet Volume 11.5 fL (9.4-12.4); Monocytes Absolute Auto 0.6 X10*3/uL (0.1-1.2); Monocytes Percent Auto 7.7 % (2-11); Neutrophils Absolute Auto 5.3 x10*3/uL (2.0-8.3); Neutrophils Percent Auto 66.4 % (45-73); Platelet Count 172 X10*3/uL (160-400); Red Cell Distribution Width 12.4 % (11.0-16.0)
[2022-11-07 12:29] LABS: Alanine Aminotransferase < 6 U/L (0-40); Alkaline Phosphatase 68 U/L (39-117); Anion Gap 11 (12-20); Aspartate Amino Transferase 13 U/L (5-37); Bilirubin Direct 0.2 mg/dL (0.0-0.5); Bilirubin Total 0.8 mg/dL (0.0-1.0); Blood Urea Nitrogen 13 mg/dL (9-16); Calcium 9.1 mg/dL (8.4-10.2); Carbon Dioxide 29 mmol/L (22-29); Chloride 106 mmol/L (96-108); Creatinine Clr Calc Pharmacy 92.7; Estimated Glomerular Filt Rate > 60; Glucose Random 90 mg/dL (60-115); Lipase 7 U/L (8-78); Potassium 3.8 mmol/L (3.3-5.1); Sodium 142 mmol/L (135-145); Total Protein 6.1 g/dL (6.5-8.0)
[2022-11-07 12:33] LABS: Troponin-I High Sensitivity 3.6 ng/L (<3.5-35.0)
[2022-11-07] MEDS: iohexoL 350 MG/ML 100 ML INFUS..BTL IV (14:21)
[2022-11-07 14:52] LABS: Appearance Urine Clear; Color Urine Yellow; Glucose Urine UA Negative (Negative); Leukocyte Esterase Urine Negative (Negative); Nitrite Urine Negative (Negative); Specific Gravity - Urine 1.015 (1.005-1.025); Urine Blood Negative (Negative); Urine Ketones Negative (Negative); Urine Protein Negative (Neg-Trace)
[2022-11-07 15:18] VITALS: BP 173/88; PULSE 80; RESP 16; TEMP 37; O2SAT 99
[2022-11-07] MEDS: Carbidopa/Levodopa 25/100 TABLET 1 TAB PO (17:09)
--- NOTE | 2022-11-07 17:09 | PC.NURSE ---
pt medicated per provider order, pt calling for transport home.
== END 2022-11-07 17:17 | disposition home or self-care (01) ==
PROVIDERS: Physician Assistant; Emergency Provider Emergency Medicine; PCP Internal Medicine
DX: R07.81 Pleurodynia (principal); Z91.81 History of falling; G20 Parkinson's disease; I10 Essential (primary) hypertension; Z79.899 Other long term (current) drug therapy
CPT/HCPCS: 36415; 71260; 74177; 80048; 80076; 81003; 83690; 84484; 85025; 85610; 93005; 99284; 99285; Q9967

== ENCOUNTER → 2022-11-14 12:52 | Outpatient (BNVA) | payer MEDICARE, MEDICAID, SELFPAY | PROVIDERS: PCP Internal Medicine; Visit Provider Internal Medicine Gastroenterology | DX: Z12.11 Encounter for screening for malignant neoplasm of colon (principal); K59.09 Other constipation; K44.9 Diaphragmatic hernia without obstruction or gangrene; K21.00 Gastro-esophageal reflux disease with esophagitis, without bleeding; R79.89 Other specified abnormal findings of blood chemistry | CPT/HCPCS: 99212 ==

== ENCOUNTER 2022-12-23 08:35 | Outpatient (REF) | payer MEDICARE, MEDICAID, SELFPAY ==
[2022-12-31 09:58] LABS: FIT1 NEGATIVE (NEGATIVE)
[2022-12-31 09:59] LABS: FIT Int Ctl YES
== END 2022-12-23 08:36 | disposition home or self-care (01) ==
LOC: HO.LNP 08:35
PROVIDERS: Visit Provider Internal Medicine Gastroenterology
DX: Z13.89 Encounter for screening for other disorder (principal)
CPT/HCPCS: 82274

== ENCOUNTER 2023-04-23 22:19 | Emergency (ER) | payer MEDICARE, MEDICAID, SELFPAY ==
--- NOTE | ~2023-04-23 | XR_ITS ---
EXAMINATION: XR LUMBOSACRAL SPINE CLINICAL INFORMATION: Pain. COMPARISON: None available. TECHNIQUE: Three views of the lumbosacral spine. FINDINGS: The alignment is within normal limits. There is moderate L4-L5 disc degenerative change and mild disc degenerative change throughout the remaining lumbar spine with loss of disc space, endplate change and osteophytes. There is also mild L4-L5 and L5-S1 facet degenerative change. The bone mineralization is normal. The vertebral body heights are maintained. There is atherosclerotic plaque of the abdominal aorta. An IVC filter is in place. The soft tissues are unremarkable. XR/XR lumbar spine 2-3V IMPRESSION: Moderate L4-L5 disc degenerative change and mild disc degenerative change throughout the remaining lumbar spine and lower lumbar facets. No fracture or malalignment.
[2023-04-23 22:53] VITALS: BP 112/50; PULSE 71; RESP 18; TEMP 36.8; O2SAT 97; BMI 26.8
[2023-04-23 23:34] VITALS: BP 157/79; PULSE 75; RESP 18; TEMP 36.9; O2SAT 99
--- NOTE | 2023-04-23 23:37 | ED.GENADULT ---
HPI - General Adult General Chief complaint: Back Pain/Injury Stated complaint: back pain, hip pain, leg pain Time Seen by Provider: 04/23/23 23:37 Source: patient Mode of arrival: EMS Limitations: no limitations History of Present Illness HPI narrative: Patient with Parkinson disease lives with his friend walks with walker and uses wheelchair lives mostly on the left side complaining of pain on the left hip buttocks patient does do yoga exercises and pain got worse after doing it seen physical therapist yesterday. Now complaining of pain in lower back no radiation of the pain motor or sensory weakness no recent fall Related Data Home Medications Medication Instructions Recorded Confirmed aezunhiurjiq-kzzrmbdk-smismk tablet 1 tab PO DAILY 03/12/21 02/06/23 aspirin 81 mg tablet,delayed 81 mg PO DAILY 09/05/21 02/06/23 release Previous Rx's Medication Instructions Recorded blood pressure monitor #1 ea 09/05/21 mirtazapine 7.5 mg tablet 7.5 mg PO BEDTIME #30 tabs 05/07/22 carbidopa ER 50 mg-levodopa 200 mg 1 tab PO TID #270 tabs 07/25/22 tablet,extended release carbidopa 25 mg-levodopa 100 mg 1 tab PO TID #270 tabs 08/13/22 tablet sennosides 8.6 mg capsule (senna) 17.2 mg PO DAILY PRN constipation 11/14/22 30 days #60 caps bupropion HCl 150 mg 24 hr tablet, 150 mg PO BID 90 days #180 tabs 02/21/23 extended release (Wellbutrin XL) omeprazole 20 mg capsule,delayed 20 mg PO DAILY #90 caps 03/12/23 release diazepam 5 mg tablet 5 mg PO TID anxiety #90 tabs 04/16/23 mirabegron 25 mg tablet,extended 25 mg PO DAILY 90 days #90 tabs 04/17/23 release 24 hr Allergies Allergy/AdvReac Type Severity Reaction Status Date / Time alfuzosin AdvReac Intermediate Dizziness Verified 04/23/23 23:02 benztropine [Cogentin] AdvReac Intermediate Dizziness Verified 04/23/23 23:02 terazosin AdvReac Intermediate Dizziness Verified 04/23/23 23:02 Review of Systems Review of Systems: Yes all other systems are reviewed and are negative PMFSH Past Medical History Medical History Anxiety and depression Arthritis GERD (gastroesophageal reflux disease) History of alcohol abuse Hx of subdural hematoma Impotence Left hip pain Low vitamin B12 level Parkinsons disease Peripheral neuropathy Sciatic pain Skin rash Tension headache Surgical History History of bilateral cataract extraction History of cholecystectomy (~02/2021) History of DVT (deep vein thrombosis) History of esophagogastroduodenoscopy (EGD) History of hydrocelectomy History of inguinal hernia repair History of umbilical hernia repair Hx of colonoscopy Hx of transurethral resection of prostate Family History Family History Father Diabetes H/O heart bypass surgery Depression Mother Heart problem Depression Brother Hypertension Maternal Uncle Alcoholism Substance use disorder Other Mental health disorder Social History Social History Household Members: Other Household Members Other:: roommate Housing: House Are you a primary rn urgent care to a significant other at home: No Do you presently have visiting nurse or other home services: No Alcohol intake: former Year quit: 2014 Patient Tobacco Use Status: Never used Tobacco e-Cigarette/Vaping Use: Never Used Advance Directives: Yes Advance Directives on File: Yes Advance Directives Date on File: 03/16/21 service: No Current occupational status: disabled Cognitive needs: Yes Hearing needs: No Vision needs: Yes Physical Exam ED Vital Signs: Vital Signs - 24 hr 04/23/23 22:53 04/23/23 23:34 04/24/23 01:36 Temperature 98.2 F 98.5 F 97.7 F Pulse Rate 71 75 72 Respiratory Rate 18 18 18 Blood Pressure 112/50 L 157/79 H 129/84 Pulse Oximetry 97 99 98 Oxygen Delivery Method Room Air Room Air Room Air 04/24/23 04:00 Temperature 98.2 F Pulse Rate 65 Respiratory Rate 16 Blood Pressure 126/58 L Pulse Oximetry 98 Oxygen Delivery Method Room Air BMI result Body Mass Index 26.8 Appearance: Alert. Oriented X3. No acute distress. Eyes: PERRLA, No Nystagmus ENT: Pharynx normal. Oral Mucosa moist Neck: Normal inspection. Neck supple. CVS: Normal heart rate and rhythm. Pulses normal. Respiratory: No respiratory distress. Equal air entry bilateral, Abdomen: Soft and nontender. Bowel sounds are present, no mass palpable, no CVA tenderness Skin: Skin warm and dry. Normal skin color. Normal skin turgor. Extremities: Trace lower extremity edema. No calf tenderness back: Diffuse tenderness of lower lumbar spinal area no focal spinal tenderness SLR negative bilaterally Neuro: Oriented X 3. No motor deficit. Medications Administered Discontinued Medications Generic Name Dose Route Start Last Admin Trade Name [place] PRN Reason Stop Dose Admin Tramadol HCl 50 mg 04/23/23 23:49 04/24/23 00:26 Tramadol Hcl 50 Mg Tablet PO 04/23/23 23:50 50 mg ONCE ONE Administration Medical Decision Making Medical Decision Making [facility] Narrative: Patient with muscular pain lower back is negative for any acute pathology no signs signs of cauda equina we patient does have help at home does want to go to the able to stand and pivot you walks with walker in his wheelchair at home will discharge patient home with family in Differential Diagnosis Differential Diagnoses: The differential diagnosis associated with the presentation includes Parkinson disease spinal stenosis/lower back/musculoskeletal pain/compression fracture Admission/Observation Consideration of admission/observation: Escalation of care including admission/observation considered Radiology Impression Discussion of test interpretation with radiology: I have reviewed the radiologist's reading. Radiologist Impression: XR/XR lumbar spine 2-3V IMPRESSION: Moderate L4-L5 disc degenerative change and mild disc degenerative change throughout the remaining lumbar spine and lower lumbar facets. ? No fracture or malalignment. Discharge Plan Discharge Clinical Impression: Low back pain Patient Disposition: er [facility] Instructions: Chronic Back Pain (DC) Prescriptions: No Action carbidopa-levodopa 50-200 mg tablet extended release 1 tab PO TID Qty: 270 3RF carbidopa-levodopa 25-100 mg tablet 1 tab PO TID Qty: 270 6RF bupropion HCl [Wellbutrin XL] 150 mg tablet extended release 24 hr 150 mg PO BID 90 Days Qty: 180 0RF omeprazole 20 mg capsule,delayed release(DR/EC) 20 mg PO DAILY Qty: 90 0RF diazepam 5 mg tablet 5 mg PO TID Qty: 90 0RF mirabegron 25 mg tablet extended release 24 hr 25 mg PO DAILY 90 Days Qty: 90 1RF djrxkphsiioo-cqdronmg-yqowlw Tablet 1 tab PO DAILY aspirin 81 mg tablet,delayed release (DR/EC) 81 mg PO DAILY (DME) blood pressure monitor Kit See Rx Instructions .Route Qty: 1 0RF Rx Instructions: As directed mirtazapine 7.5 mg tablet 7.5 mg PO BEDTIME Qty: 30 6RF senna 8.6 mg capsule 17.2 mg PO DAILY PRN (Reason: constipation) 30 Days Qty: 60 2RF Rx Instructions: Take 2 capsules by mouth at bedtime as needed for constipation
[2023-04-24] MEDS: traMADoL HCL 50 MG TABLET PO ×2 (00:26→06:46)
[2023-04-24 01:36] VITALS: BP 129/84; PULSE 72; RESP 18; TEMP 36.5; O2SAT 98
--- NOTE | 2023-04-24 02:00 | PC.NURSE ---
pt okay'd by ed provider to sleep until morning awaiting ride home from roommate
[2023-04-24 04:00] VITALS: BP 126/58; PULSE 65; RESP 16; TEMP 36.8; O2SAT 98
--- NOTE | 2023-04-24 05:39 | PC.NURSE ---
pt sleeping side lying on R side at this time. rise and fall of chest noted. rr 16 spo2 97% RA
[2023-04-24 06:00] VITALS: BP 124/58; PULSE 63; RESP 16; TEMP 36.7; O2SAT 98
--- NOTE | 2023-04-24 07:12 | PC.NURSE ---
Assumed care of this patient at 0700. Patient awaiting transportation for discharge.
--- NOTE | 2023-04-24 08:14 | PC.NURSE ---
pt medically cleared for discharge. discharge reviewed w/ pt.
== END 2023-04-24 08:50 | disposition home or self-care (01) ==
PROVIDERS: Emergency Provider Internal Medicine; PCP Internal Medicine
DX: M54.50 Low back pain, unspecified (principal); G20 Parkinson's disease; Z86.718 Personal history of other venous thrombosis and embolism; Z79.82 Long term (current) use of aspirin; Z79.899 Other long term (current) drug therapy
CPT/HCPCS: 72100; 99283; 99284

== ENCOUNTER 2023-05-26 13:51 | Outpatient (AMB) | payer MEDICARE, MEDICAID, SELFPAY ==
--- NOTE | 2023-05-26 13:56 | A.OFFPC_ITS ---
Vital Signs 05/26/23 13:57 Height 6 ft 1 in Weight 189 lb 6 oz BMI 25.0 BP 110/62 Blood Pressure Location Lt brachial Position Sitting Pulse 83 Pulse Source Pulse Oximeter Pulse Oximetry (%) 98 Oxygen Delivery Method Room Air Intake Visit Reasons: ED F/U /Med review Intake Note: Patient is here to follow-up after a visit the emergency department at [facility] on 04/24/23. 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 Required: No Vp Communications: Not Required per policy Accompanied by: Self / Same As Patient Allergies alfuzosin Adverse Reaction (Intermediate, Verified 05/26/23 14:13) Dizziness benztropine [Cogentin] Adverse Reaction (Intermediate, Verified 05/26/23 14:13) Dizziness terazosin Adverse Reaction (Intermediate, Verified 05/26/23 14:13) Dizziness Medication List - Last Reconciled 05/26/23 by LANEY Smith aspirin 81 mg PO DAILY blood pressure monitor As directed bupropion HCl (Wellbutrin XL) 150 mg PO BID 90 days carbidopa-levodopa 25-100 mg 1 tab PO TID carbidopa-levodopa 50-200 mg ER 1 tab PO TID diazepam 5 mg PO TID ouvrflszjmxq-ozoqicfs-dzadsa 1 tab PO DAILY omeprazole 20 mg PO DAILY sennosides (senna) 17.2 mg (2 x 8.6 mg) PO DAILY PRN 30 days tramadol 50 mg PO BEDTIME PRN Tobacco use date assessed: 05/26/23 HPI HPI Comments History of Present Illness Details 73-year-old male past medical history si gnificant for GERD, peripheral neuropathy, anxiety, depression, Parkinson's disease, hypertension, DVT. Patient Dr. Multani, patient presents today for emergency room follow-up for severe left-sided low back pain and left buttock pain. Patient currently follow with physical therapy at [facility]. Patient reports previously followed by Dr. Cortez movement disorder specialist however she has moved her office to [place] is difficult for him to get to his appointments. Patient reports he is in the process of figuring out who he wants to follow up with for neurology. Radiologist Impression: XR/XR lumbar spine 2-3V IMPRESSION: Moderate L4-L5 disc degenerative change and mild disc degenerative change throughout the remaining lumbar spine and lower lumbar facets. ? No fracture or malalignment. Patient reports back pain improving states 3/10, denies any numbness or tingling in lower extremities. Denies any lumbar spinal tenderness, left-sided paraspinal muscular tenderness and denies left sciatic notch tenderness. Patient states it is taking tramadol as needed with pain with good effect. Prescription sent by patient's PCP Dr. Multani on 05/21/23, Flu shot given in office today. [facility] Medical History Anxiety and depression Arthritis GERD (gastroesophageal reflux disease) History of alcohol abuse Hx of subdural hematoma Impotence Left hip pain Low vitamin B12 level Parkinsons disease Peripheral neuropathy Sciatic pain Skin rash Tension headache Surgical History History of hydrocelectomy Hx of transurethral resection of prostate History of cholecystectomy (~02/2021) History of esophagogastroduodenoscopy (EGD) Hx of colonoscopy History of bilateral cataract extraction History of DVT (deep vein thrombosis) History of umbilical hernia repair History of inguinal hernia repair Family History Father Diabetes H/O heart bypass surgery Depression Mother Heart problem Depression Brother Hypertension Maternal Uncle Alcoholism Substance use disorder Other Mental health disorder Social History Household Members: Other Household Members Other:: roommate Housing: House Are you a primary medicare sales representative to a significant other at home: No Do you presently have visiting nurse or other home services: No Alcohol intake: former Year quit: 2014 Patient Tobacco Use Status: Never used Tobacco e-Cigarette/Vaping Use: Never Used Advance Directives Date on File: 03/16/21 service: No Current occupational status: disabled Cognitive needs: Yes Hearing needs: No Vision needs: Yes Questionnaire Thrive Questionnaire Date Thrive assessed: 02/06/23 MIGUEL-7 AMB Questionnaire MIGUEL-7 Date MIGUEL - 7 assessed: 02/06/23 Source: Developed by Drs. George Gupta, Melissa Kam, Dk Silverio and colleagues, with an educational eugene from [employer]. Review of Systems Const Denies chills, Denies fatigue, Denies fever(s) and Denies poor appetite Eyes Denies no additional complaints ENT Reports Normal hearing present Card Denies chest pain, Denies syncope, Denies rapid heart rate and Denies dyspnea Resp Denies cough and Denies dyspnea GI Denies change in stool character, Denies constipation, Denies diarrhea, Denies nausea and Denies vomiting Denies dysuria, Denies urinary frequency and Denies urinary urgency Musc Reports back pain Neuro Reports Normal hearing present, Denies confusion and Denies syncope Psych Denies confusion Endo Denies fatigue Physical exam (Primary Care) Vital Signs: Last Vital Signs Pulse 83 05/26/23 13:57 BP 110/62 05/26/23 13:57 Pulse Ox 98 05/26/23 13:57 Oxygen Delivery Method Room Air 05/26/23 13:57 BMI result Body Mass Index 25.0 Tobacco/Smoking Status: Tobacco use Status Tobacco use date assessed 05/26/23 05/26/23 13:58 Patient Tobacco Use Status Never used Tobacco 05/26/23 13:58 e-Cigarette/Vaping Use Never Used 05/26/23 13:58 Thrive Assessment: Date of Thrive Assessment Date Thrive assessed 02/06/23 05/26/23 13:58 Const General: No confusion Orientation/consciousness: No confusion Neuro General: No confusion Cranial nerves: Yes Normal hearing present Office Procedures Flu Questionnaire Does the patient have a severe egg allergy?: No Does the patient have severe life threatening allergies?: No Does the patient have a fever or illness today?: No Has the patient ever had Guillain-[place] Syndrome?: No Has the patient ever had any past reaction to a flu shot?: No Comment: afebrile. consented for flu shot today. Immunizations flu vacc [id number] 6mos up(PF) 60 mcg(15 mcgx4)/0.5 mL IM syringe Performing Provider: LANEY Smith [facility] Administered by: Andres Armstrong RN on 05/26/23 14:30 2 Dose Route Admin Location Dispensed Lot Number Expiration Date NDC Cut File Clerk 0.5 mL IM Right Deltoid 0.5 mL [id number] 02/22/24 19925-894-51 [employer] VIS Given Date VIS Provided VIS Publication Date 05/26/23 Single Vaccine 21 Eligibility Eligibility Date Funding Source Not [facility] Eligible 05/26/23 Private Administration Comments: tolerated well Assessment and Plan Assessment & Plan (1) Parkinson disease: Code(s): G20 - Parkinson's disease Plan: Continue to follow-up with Neurology. Continue on Carpidopa-levodopa. (2) Low back pain: Code(s): M54.5 - Low back pain Plan: Continue to take tramadol as needed for pain. Continue to proceed with physical therapy. Plan Patient advised to make follow-up appointment for annual wellness exam. Orders: Orders Influenza [id number] Immunization Today Z23 - Encounter for immunization Coding Level of Care Code Est Pt Level 3 (12083) Diagnoses Parkinson disease G20 Acute low back pain without sciatica, unspecified back pain laterality M54.5
[2023-05-26 13:57] VITALS: BP 110/62; PULSE 83; O2SAT 98; BMI 25.0
== END 2023-05-26 14:41 | disposition home or self-care (01) ==
PROVIDERS: PCP Internal Medicine; Visit Provider Nurse Practitioner Family
DX: G20.A1 Parkinson's disease without dyskinesia, without mention of fluctuations (principal); M54.50 Low back pain, unspecified; Z23 Encounter for immunization
CPT/HCPCS: 90471; 90686; 99213

== ENCOUNTER 2023-07-25 13:25 | Emergency (ER) | payer MEDICARE, MEDICAID, SELFPAY ==
--- NOTE | ~2023-07-25 | XR_ITS ---
EXAMINATION: XR SHOULDER, LEFT CLINICAL INFORMATION: Shoulder injury COMPARISON: None available. TECHNIQUE: AP external rotation, Grashey, scapular Y, and axillary views of the left shoulder. FINDINGS: The bones and soft tissues are normal. No fracture. Glenohumeral alignment is anatomic with normal joint space. There is narrowing cough the left acromioclavicular joint No abnormal soft tissue calcifications. XR/XR shoulder LT min 2V IMPRESSION: Degenerative changes in the left acromioclavicular joint
[2023-07-25 14:31] VITALS: BP 129/64; PULSE 70; RESP 14; TEMP 36.6; O2SAT 99; BMI 24.9
--- NOTE | 2023-07-25 15:25 | ED_ITS ---
HPI - Extremity Problem General Chief complaint: Extremity Injury, Upper Stated complaint: L shoulder injury Time Seen by Provider: 07/25/23 16:44 Source: patient, RN notes reviewed and old records reviewed Mode of arrival: ambulatory History of Present Illness HPI Narrative: 73-year-old male with a past medical history of vitamin B12 deficiency, Parkinson's, arthritis, subdural hematoma, anxiety/depression, GERD, presenting to the ED complaining of left shoulder pain s/p lifting walker into vehicle 3 days ago. Denies direct injury/trauma or fall. Reports pain radiating from left side of neck to shoulder. Denies chest pain/shortness of breath. Has been taking Tylenol and leftover Tramadol at home with little relief. Denies numbness, tingling, weakness, fever/chills Related Data Home Medications Medication Instructions Recorded Confirmed ytxjtfbytacv-nphnhzta-sdhotp tablet 1 tab PO DAILY 03/12/21 05/26/23 aspirin 81 mg tablet,delayed 81 mg PO DAILY 09/05/21 05/26/23 release Previous Rx's Medication Instructions Recorded blood pressure monitor #1 ea 09/05/21 carbidopa ER 50 mg-levodopa 200 mg 1 tab PO TID #270 tabs 07/25/22 tablet,extended release carbidopa 25 mg-levodopa 100 mg 1 tab PO TID #270 tabs 08/13/22 tablet sennosides 8.6 mg capsule (senna) 17.2 mg (2 x 8.6 mg) PO DAILY PRN 11/14/22 constipation 30 days #60 caps tramadol 50 mg tablet 50 mg PO BEDTIME PRN pain #14 tabs 05/21/23 bupropion HCl 150 mg 24 hr tablet, 150 mg PO BID 90 days #180 tabs 06/02/23 extended release (Wellbutrin XL) omeprazole 20 mg capsule,delayed 20 mg PO DAILY #90 caps 06/17/23 release diazepam 5 mg tablet 5 mg PO TID anxiety #90 tabs 07/15/23 acetaminophen 500 mg tablet 500 mg PO Q6H PRN fever or pain 07/25/23 (Tylenol Extra Strength) #14 tabs cyclobenzaprine 5 mg tablet 5 mg PO Q8H PRN pain (scale score 07/25/23 7-10) 5 days #14 tabs lidocaine 5 % topical patch 1 patch topical DAILY PRN pain #30 07/25/23 (Lidoderm) ea Allergies Allergy/AdvReac Type Severity Reaction Status Date / Time alfuzosin AdvReac Intermediate Dizziness Verified 05/26/23 14:13 benztropine [Cogentin] AdvReac Intermediate Dizziness Verified 05/26/23 14:13 terazosin AdvReac Intermediate Dizziness Verified 05/26/23 14:13 Review of Systems Review of Systems: Constitutional: No Fever, No Chills ENT/Mouth: No Ear Pain, No Nasal Congestion, No sore throat, No Rhinorrhea, No Swallowing Difficulty Cardiovascular: No Chest Pain, No SOB Respiratory: No Cough Gastrointestinal: No Nausea, No Vomiting, No Abdominal pain Genitourinary: No Dysuria, No Urinary Frequency, No Urinary Incontinence/retention, No Urgency, No Flank Pain Musculoskeletal: + joint pain, No Myalgias, No Joint Swelling Skin: No Skin Lesions, No rash Neuro: No Weakness, No Numbness, No Paresthesias Yes all other systems are reviewed and are negative Constitutional: Constitutional: Reports as per [facility] Past Medical History Attestation statement: The following information was validated with the patient. Source: old records reviewed Medical History Low vitamin B12 level Parkinsons disease Left hip pain Sciatic pain Arthritis History of alcohol abuse Hx of subdural hematoma Tension headache Impotence Anxiety and depression Skin rash Peripheral neuropathy GERD (gastroesophageal reflux disease) Surgical History History of hydrocelectomy Hx of transurethral resection of prostate History of cholecystectomy (~02/2021) History of esophagogastroduodenoscopy (EGD) Hx of colonoscopy History of bilateral cataract extraction History of DVT (deep vein thrombosis) History of umbilical hernia repair History of inguinal hernia repair Family History Family History Father Diabetes H/O heart bypass surgery Depression Mother Heart problem Depression Brother Hypertension Maternal Uncle Alcoholism Substance use disorder Other Mental health disorder Social History Social History Household Members: Other Household Members Other:: roommate Housing: House Are you a primary childcare center director to a significant other at home: No Do you presently have visiting nurse or other home services: No Alcohol intake: former Year quit: 2014 Comment: previously medicated with tylenol and pyridium Patient Tobacco Use Status: Never used Tobacco e-Cigarette/Vaping Use: Never Used Advance Directives: Yes Advance Directives on File: Yes Advance Directives Date on File: 03/16/21 service: No Current occupational status: disabled Cognitive needs: Yes Hearing needs: No Vision needs: Yes Physical Exam Vital Signs: Vital Signs: Last Vital Signs Temp 98 F 07/25/23 14:31 Pulse 70 07/25/23 14:31 Resp 14 07/25/23 14:31 BP 129/64 07/25/23 14:31 Pulse Ox 99 07/25/23 14:31 O2 Del Method Room Air 07/25/23 14:31 BMI result Body Mass Index 24.9 Const: General: cooperative, healthy appearing and no acute distress Orientation/consciousness: patient oriented x3 Limitations: no limitations HEENT: Head: Yes normal to inspection and Yes atraumatic Ears: hearing grossly normal bilaterally General nose exam: Normal external nose present Face and sinus: Yes normal facial exam Eyes: General: appearance normal, both eyes and all related structures EOM: EOMs intact bilaterally Neck: Other: No midline cervical spinous tenderness/step-off or deformity. Left-sided paraspinal/trapezius muscle tenderness to palpation Neck: Yes normal visual inspection and Yes no meningeal signs Resp: Effort & Inspection: normal respiratory effort and no respiratory distress Cardio: Rate: regular rate Peripheral pulses: Peripheral pulses 2+ throughout Back/Spine/Pelvis: Other: No midline cervical/thoracic/lumbar spinous tenderness/step-off or deformity Skin: Rashes: no rashes Wounds: no wounds Neuro: General: patient oriented x3, tone normal, moves all extremities, no meningeal signs and no focal motor deficits Cranial nerves: Yes CN's II-XII intact bilaterally Extrem: Other: Left shoulder without bony deformity. Mild tenderness to AC joint. No erythema/warmth. Full range of motion intact. Neurovascular intact distally General: Yes normal to inspection Course Course Course Narrative: This is an RME: Additional HPI, ROS, PE not included below will be deferred to primary provider. Patient is a 73-year-old male presents emergency department for evaluation of left shoulder pain. Reports he was lifting a walker into his vehicle, sustaining sudden onset of severe pain to the left shoulder. Took Tylenol and tramadol prior to arrival, neither of which have helped. Plan: XR XR shoulder LT min 2V IMPRESSION: Degenerative changes in the left acromioclavicular joint > Results discussed with patient including worrisome signs and symptoms and strict return precautions, and when to return to the emergency department. They verbalized understanding and feel safe for discharge at this time. Medications Administered Discontinued Medications Generic Name Dose Route Start Last Admin Trade Name [place] PRN Reason Stop Dose Admin Cyclobenzaprine HCl 10 mg 07/25/23 16:59 07/25/23 17:28 Cyclobenzaprine Hcl 10 Mg Tablet PO 07/25/23 17:00 10 mg ONCE ONE Administration Lidocaine 1 patch 07/25/23 17:00 07/25/23 17:28 Lidocaine 4 % Patch Adh..Patch TRANSDERMA 07/25/23 17:01 1 patch ONCE ONE Administration Protocol Medical Decision Making Medical Decision Making MDM Narrative: 73-year-old male with a past medical history of vitamin B12 deficiency, Kerline on's, arthritis, subdural hematoma, anxiety/depression, GERD, presenting to the ED complaining of left shoulder pain s/p lifting walker into vehicle 3 days ago. On exam vital signs stable, NAD, nontoxic appearing with physical exam as noted above with reproducible MSK/paraspinal cervical tenderness/trapezius muscle tenderness and left shoulder tenderness. No focal neuro deficits. Concern for MSK pain/strain and spasming. Low suspicion for cervical dissection, ACS/PE or fracture Plan: X-ray ordered in triage. EKG, pain control Please refer to course for remaining clinical decision making, interpretation of labs/imaging results, and discussions with consultants and/or family members. Differential Diagnosis Differential Diagnoses: The differential diagnosis associated with the presentation includes As above Independent Interpretation I performed an independent interpretation of an: EKG (My interpretation EKG normal sinus rhythm rate of 70. AL interval 140. QTC 401. No STEMI) Radiology Impression Discussion of test interpretation with radiology: I have reviewed the radiologist's reading. External Record Review External record reviewed: Inpatient record, Office record, Outpatient record, Prior outpatient labs, Prior outpatient radiology, Primary care record and Outside ED record Tests considered The following testing was considered but not selected: As above Prescription Management I considered prescription management with: Pain Medication Chronic Conditions Patient?s care impacted by: Other (Parkinson's) Discharge Plan Discharge Clinical Impression: AC (acromioclavicular) joint arthritis Patient Disposition: Home, Self-Care Instructions: Osteoarthritis (DC) Additional Instructions: your x-ray shows arthritic changes to your shoulder Your pain is likely musculoskeletal Flexeril is a muscle relaxer, take at night as it makes you drowsy, do not drive, drink alcohol, or operate machinery while taking it Lidoderm patches are numbing patches, apply to painful area In addition take Tylenol at home If symptoms persist or worsen, pain becomes unbearable, you developed urinary retention or incontinence, or weakness return to the ED Prescriptions: New lidocaine [Lidoderm] 5 % adhesive patch,medicated 1 patch topical DAILY MDD remove after 12 hours PRN (Reason: pain) Qty: 30 0RF Rx Instructions: leave on most painful area for up to 12 hrs cyclobenzaprine 5 mg tablet 5 mg PO Q8H PRN (Reason: pain (scale score 7-10)) 5 Days Qty: 14 0RF acetaminophen [Tylenol Extra Strength] 500 mg tablet 500 mg PO Q6H PRN (Reason: fever or pain) Qty: 14 0RF No Action carbidopa-levodopa 50-200 mg tablet extended release 1 tab PO TID Qty: 270 3RF carbidopa-levodopa 25-100 mg tablet 1 tab PO TID Qty: 270 6RF tramadol 50 mg tablet 50 mg PO BEDTIME PRN (Reason: pain) Qty: 14 0RF bupropion HCl [Wellbutrin XL] 150 mg tablet extended release 24 hr 150 mg PO BID 90 Days Qty: 180 0RF omeprazole 20 mg capsule,delayed release(DR/EC) 20 mg PO DAILY Qty: 90 3RF diazepam 5 mg tablet 5 mg PO TID Qty: 90 0RF aaeqquppjlqm-licxnieb-wdpjau Tablet 1 tab PO DAILY aspirin 81 mg tablet,delayed release (DR/EC) 81 mg PO DAILY (DME) blood pressure monitor Kit See Rx Instructions .Route Qty: 1 0RF Rx Instructions: As directed senna 8.6 mg capsule 17.2 mg PO DAILY PRN (Reason: constipation) 30 Days Qty: 60 2RF Rx Instructions: Take 2 capsules by mouth at bedtime as needed for constipation Referrals: Ventura Multani MD [Primary Care Provider] - 3 days
--- NOTE | 2023-07-25 16:59 | ECG_ITS ---
Test Reason : SHOULDER PAIN Blood Pressure : / mmHG Vent. Rate : 070 BPM Atrial Rate : 070 BPM P-R Int : 140 ms QRS Dur : 092 ms QT Int : 372 ms P-R-T Axes : 053 009 033 degrees QTc Int : 401 ms Normal sinus rhythm Normal ECG When compared with ECG of 07-NOV-2022 11:53, No significant change was found Referred By: Darling Hollins Electronically Signed By:DALTON CASTAÑEDA MD
[2023-07-25] MEDS: Lidocaine 4 % Patch ADH..PATCH 1 PATCH TRANSDERMA (17:28)
[2023-07-25] MEDS: Cyclobenzaprine HCl 10 MG TABLET PO (17:28)
== END 2023-07-25 18:03 | disposition home or self-care (01) ==
PROVIDERS: Emergency Provider Emergency Medicine; PCP Internal Medicine
DX: M19.012 Primary osteoarthritis, left shoulder (principal); M25.512 Pain in left shoulder; Z86.718 Personal history of other venous thrombosis and embolism; Z79.899 Other long term (current) drug therapy
CPT/HCPCS: 73030; 93005; 96372; 99283; 99284

== ENCOUNTER → 2023-07-25 16:59 | Outpatient (BNV) | payer MEDICARE, MEDICAID, SELFPAY | PROVIDERS: Emergency Provider Emergency Medicine; PCP Internal Medicine; Visit Provider Internal Medicine Cardiovascular Disease | DX: M25.512 Pain in left shoulder (principal) | CPT/HCPCS: 93010 ==

== ENCOUNTER 2023-08-15 10:01 | Outpatient (AMB) | payer MEDICARE, MEDICAID, SELFPAY ==
--- NOTE | 2023-08-15 10:03 | MHC.OFFVIS ---
Intake Intake Visit Reasons: 6m follow up Intake Note: Patient is Present for Telephone Follow Up For Urology Med: None Antibiotic Allergy:None Blood Thinner: Aspirin Allergies alfuzosin Adverse Reaction (Intermediate, Verified 05/26/23 14:13) Dizziness benztropine [Cogentin] Adverse Reaction (Intermediate, Verified 05/26/23 14:13) Dizziness terazosin Adverse Reaction (Intermediate, Verified 05/26/23 14:13) Dizziness Medication List - Last Reconciled 08/15/23 by Daniel Alvarez MD acetaminophen (Tylenol Extra Strength) 500 mg PO Q6H PRN aspirin 81 mg PO DAILY blood pressure monitor As directed bupropion HCl (Wellbutrin XL) 150 mg PO BID 90 days carbidopa-levodopa 25-100 mg 1 tab PO TID carbidopa-levodopa 50-200 mg ER 1 tab PO TID cyclobenzaprine 5 mg PO Q8H PRN 5 days diazepam 5 mg PO TID lidocaine 5% (Lidoderm) 1 patch topical DAILY PRN MDD remove after 12 hours ncrhfdvwfaaz-[id number]-[id number] 1 tab PO DAILY omeprazole 20 mg PO DAILY sennosides (senna) 17.2 mg (2 x 8.6 mg) PO DAILY PRN 30 days tramadol 50 mg PO BEDTIME PRN HPI HPI Comments History of Present Illness Details Evelio is a pleasant male. He has been patient of Dr. Arias. he is seen for the following urologic conditions - erectile dysfunction - right hydrocele - lower urinary tract symptoms Background Parkinson's Telemedicine Evaluation 15 min Consultation Dox[employer]oci[employer] Saad Video attempted Had come off terazosin and Myrbetriq Waking 4 times at night to urinate Encouraged to restart terazosin. If not effective call in 2 months and we can retry Myrbetriq Scrotal ultrasound shows partial recurrence of hydrocele following hydrocele drainage May need secondary drainage Lower urinary tract symptoms Does not tolerate alpha blockers Failed terazosin and failed alfuzosin due to blood pressure Procedure TUIP 03/15 with right hydrocele drainage Prior medications - imipramine Erectile dysfunction Does have some response with 10 mg daily Cialis and 100 mg Viagra on demand Discussed PSA results PSA 05/15 1.6 Had failed on demand medications Recommend use of daily Cialis maximum dose Associated conditions - no blood pressure, dyslipidemia or diabetes Right hydrocele Currently with some issues with venous drainage of legs Drainage 7/22 - partial recurrence PFSH Medical History Low vitamin B12 level Parkinsons disease Left hip pain Sciatic pain Arthritis History of alcohol abuse Hx of subdural hematoma Tension headache Impotence Anxiety and depression Skin rash Peripheral neuropathy GERD (gastroesophageal reflux disease) Surgical History History of hydrocelectomy Hx of transurethral resection of prostate History of cholecystectomy (~02/2021) History of esophagogastroduodenoscopy (EGD) Hx of colonoscopy History of bilateral cataract extraction History of DVT (deep vein thrombosis) History of umbilical hernia repair History of inguinal hernia repair Family History Father Diabetes H/O heart bypass surgery Depression Mother Heart problem Depression Brother Hypertension Maternal Uncle Alcoholism Substance use disorder Other Mental health disorder Social History Household Members: Other Household Members Other:: roommate Housing: House Are you a primary customer care manager to a significant other at home: No Do you presently have visiting nurse or other home services: No Alcohol intake: former Year quit: 2014 Comment: previously medicated with tylenol and pyridium Patient Tobacco Use Status: Never used Tobacco e-Cigarette/Vaping Use: Never Used Advance Directives Date on File: 03/16/21 service: No Current occupational status: disabled Cognitive needs: Yes Hearing needs: No Vision needs: Yes Review of Systems Const All systems reviewed & are unremarkable except as noted in HPI and below Reports no additional complaints Resp Reports no additional complaints GI Reports no additional complaints Reports as per HPI Musc Reports no additional complaints Physical Exam Telemedicine evaluation Appropriate responses Regular breathing rate and rhythm HEENT Head: Yes normal to inspection Ears: hearing grossly normal bilaterally Eyes General: appearance normal, both eyes and all related structures Neck Neck: Yes normal visual inspection Chest Chest palpation & inspection: normal inspection of the chest Resp Effort & Inspection: normal respiratory effort and able to speak in complete sentences Assessment & Plan Assessment & Plan (1) Bladder instability: Code(s): N32.89 - Other specified disorders of bladder (2) Incomplete emptying of bladder due to benign prostatic hyperplasia: Code(s): N40.1 - Benign prostatic hyperplasia with lower urinary tract symptoms; R33.9 - Retention of urine, unspecified Plan Six month follow-up Patient Instructions: Imaging studies, laboratory and physical exam results were discussed and reviewed in detail. No major barriers to patient understanding were identified. An opportunity to ask questions regarding the treatment plan was provided. All questions were answered. The patient expressed understanding and agreement with the above treatment plan. The patient is aware they should contact our office by phone for worsening of their current condition or the appearance of new urologic symptoms. Compliance is encouraged with any medications and followup testing that is ordered. It is a privilege to participate in the urologic care of your patient. If you have any questions or concerns regarding treatment for the above conditions, or other urologic issues, please do not hesitate to contact me. The office telephone contact is [phone]. This note is constructed using voice recognition software. While every effort has been made to ensure accuracy barrel endshake adjuster errors may have been included. Yours sincerely, Dr Daniel Alvarez MD, [facility] - Urology Providers of Expert, Compassionate Care for the Genitourinary System Telehealth Telehealth Location of provider rendering services: practice address Location of patient: address on file Patient Identification confirmed using: Name, : Yes Telehealth method: video Patient verbally consented to treatment: Yes Patient verbally consented to billing insurance company: Yes Patient informed of any privacy concerns related to visit: Yes Coding Level of Care Code Tele Est Pt Level 3 (09816) Diagnoses Bladder instability N32.89 Incomplete emptying of bladder due to benign prostatic hyperplasia N40.1; R33.9
== END 2023-08-15 11:44 | disposition home or self-care (01) ==
LOC: HO.HUSH 10:01
PROVIDERS: PCP Internal Medicine; Visit Provider Urology
DX: N32.89 Other specified disorders of bladder (principal); N40.1 Benign prostatic hyperplasia with lower urinary tract symptoms; R33.9 Retention of urine, unspecified
CPT/HCPCS: 99213

== ENCOUNTER → 2023-08-15 10:01 | Outpatient (BNVA) | payer MEDICARE, MEDICAID, SELFPAY | PROVIDERS: PCP Internal Medicine; Visit Provider Urology ==

== ENCOUNTER 2023-10-09 10:16 | Outpatient (AMB) | payer MEDICARE, MEDICAID, SELFPAY ==
--- NOTE | 2023-10-09 10:28 | A.OFFVIS_ITS ---
Intake Vital Signs 10/09/23 10:31 Height 6 ft 1 in Weight 183 lb 4 oz BMI 24.2 BP 136/74 Blood Pressure Location Lt brachial Position Sitting Pulse 75 Pulse Source Pulse Oximeter Pulse Oximetry (%) 99 Oxygen Delivery Method Room Air Intake Visit Reasons: AWV G0438 Intake Note: Patient is here for an Annual Wellness Visit. Professor Of Law Required: No Operations Support Analyst: Operations Support Analyst offered & declined Accompanied by: Self / Same As Patient Allergies alfuzosin Adverse Reaction (Intermediate, Verified 10/09/23 13:58) Dizziness benztropine [Cogentin] Adverse Reaction (Intermediate, Verified 10/09/23 13:58) Dizziness terazosin Adverse Reaction (Intermediate, Verified 10/09/23 13:58) Dizziness HPI AWV G0438 HPI Details 73-year-old male presents to the office for an annual wellness visit. [facility] Medical History Low vitamin B12 level Parkinsons disease Left hip pain Sciatic pain Arthritis History of alcohol abuse Hx of subdural hematoma Tension headache Impotence Anxiety and depression Skin rash Peripheral neuropathy GERD (gastroesophageal reflux disease) Surgical History History of hydrocelectomy Hx of transurethral resection of prostate History of cholecystectomy (~02/2021) History of esophagogastroduodenoscopy (EGD) Hx of colonoscopy History of bilateral cataract extraction History of DVT (deep vein thrombosis) History of umbilical hernia repair History of inguinal hernia repair Family History Father Diabetes H/O heart bypass surgery Depression Mother Heart problem Depression Brother Hypertension Maternal Uncle Alcoholism Substance use disorder Other Mental health disorder Social History Household Members: Other Household Members Other:: roommate Housing: House Are you a primary healthcare administration internship to a significant other at home: No Do you presently have visiting nurse or other home services: No Alcohol intake: former Year quit: 2014 Comment: previously medicated with tylenol and pyridium Patient Tobacco Use Status: Never used Tobacco e-Cigarette/Vaping Use: Never Used Advance Directives Date on File: 03/16/21 service: No Current occupational status: disabled Cognitive needs: Yes Hearing needs: No Vision needs: Yes Questionnaire Medicare Wellness Checkup [age] What gender do you identify with?: male During the past 4 weeks, how much have you been bothered by emotional problems such as feeling anxious, depressed, irritable, sad or downhearted, and blue?: quite a bit During the past 4 weeks, has your physical & emotional health limited your social activities with family, friends, neighbors, or groups?: moderately During the past 4 weeks, how much bodily pain have you generally had?: moderate pain During the past 4 weeks, was someone available to help you if you needed & wanted help?: yes, some During the past 4 weeks, what was the hardest physical activity you could do for at least 2 minutes?: light Can you get to places out of walking distance without help? (For eg., can you travel alone on buses, taxis or drive your car?): Yes Can you go shopping for groceries or clothes without someone's help?: No Can you prepare your own meals?: No Can you do your housework without help?: No Because of any health problems, do you need the help of another person with your personal care needs such as eating, bathing, dressing or getting around the house?: Yes Can you handle your own money without help?: Yes During the past 4 weeks, how would you rate your health in general?: good During the past 4 weeks how have things been going for you?: good & bad parts about equal Are you having difficulties driving your car?: not applicable, I don't use a car Do you always fasten your seat belt when you are in a car?: yes, usually During past 4 weeks, have you been bothered by the following: never: Problems using the telephone?, seldom: Falling or dizzy when standing up and Teeth or denture problems?, sometimes: Trouble eating well?, often: Tiredness or fatigue? and always: Sexual problems? Have you fallen 2 or more times in the past year?: Yes Are you afraid of falling?: Yes Are you a smoker?: no During the past 4 weeks, how many drinks of wine, beer, or other alcoholic beverages did you have?: no alcohol at all Do you exercise for about 20 minutes 3 or more times a week?: yes, most of the time Have you been given information to help with the following?: no: Hazards in your house that might hurt you? and no: Keeping track of your medications? How often do you have trouble taking medicines the way you have been told to take them?: I always take medicine as prescribed How confident are you that you can control & manage most of your health problems?: somewhat confident What is your race?: White Mini Mental State Exam (MMSE) Registration Name of 3 unrelated objects clearly and slowly, then ask patient to repeat all 3 of them. (1st repeat determines score. Make sure they can repeat all three): object 1, object 2 and object 3 (All objects were repeated correctly.) Attention & Calculation (CHOOSE ONE) Ask pt to begin with 100 & count backward by 7. Stop after 5 repeats. If pt cannot ask them to spell the word WORLD backward.: 93, 86, 79 and 72 Recall Ask patient to repeat the 3 items from question #3.: object 1, object 2 and object 3 Score Score: 10 Activity of Daily Living Bathing - sponge bath, tub bath or shower: receives help in bathing more than one body part (or not bathed) Dressing - getting clothes from closets & drawers, including inner/outer garments & fasteners.: gets clothes & gets dressed without help, except for help tying shoes Toileting - going to the 'toilet room' for urine/bowel elimination & cleaning self/arranging clothes: goes to toilet room, cleans self, arranges clothes without help Transfer: moves in & out of bed and chair without help (may use support object) Continence: controls urination/bowel movements completely by self Feeding: feeds self without help Total Score: 1 Information obtained from: patient Using telephone: independent Traveling: independent Shopping: needs assistance Preparing meals: dependent Housework: dependent Taking medicine: independent Managing money: independent PHQ-9 Over the last 2 weeks, how often have you been bothered by any of the following problems? 1. Little interest or pleasure in doing things: more than half the days 2. Feeling down, depressed, or hopeless: several days 3. Trouble falling or staying asleep, or sleeping too much: nearly every day 4. Feeling tired or having little energy: more than half the days 5. Poor appetite or overeating: not at all 6. Feeling bad about yourself - or that you are a failure or have let yourself or your family down: several days 7. Trouble concentrating on things, such as reading the newspaper or watching television: not at all 8. Moving or speaking so slowly that other people could have noticed. Or the opposite - being so fidgety or restless that you have been moving around a lot more than usual: several days 9. Thoughts that you would be better off or of hurting yourself in some way: not at all Total score: 10 Depression Screening Interpretation: Positive Depression Screening Done: Yes Source: Developed by Drs. George Gupta, Melissa Kam, Dk Silverio and colleagues, with an educational eugene from [employer]. Thrive Questionnaire Date Thrive assessed: 10/09/23 I am a: Patient What is your living situation today?: I have a steady place to live Within the past 12 months, did the food you bought not last and you didn't have the money to get more?: Never true Within the past 12 months, did you worry whether your food would run out before you got money to buy more?: Never true Do you have trouble paying for medicines?: No Do you have trouble getting transportation to medical appointments?: No Do you have trouble paying your heating and electricity bill?: No Do you have trouble taking care of your child, family member or friend?: No Do you have trouble with day-to-day activities such as bathing, preparing meals, shopping, managing finances, etc.?: No Are you currently unemployed and looking for a job?: No Are you interested in more education?: No Currently or been in a relationship where the following occur: no concerns reported THRIVE Score: 0 MIGUEL-7 AMB Questionnaire MIGUEL-7 Date MIGUEL - 7 assessed: 10/09/23 Feeling nervous, anxious, or on edge: 3 = Nearly every day Not being able to stop or control worryin = Several days Worrying too much about different things: 1 = Several days Trouble relaxin = Several days Being so restless that it is hard to sit still: 0 = Not at all Becoming easily annoyed or irritable: 0 = Not at all Feeling afraid as if something awful might happen: 1 = Several days Total MIGUEL-7 score (0-4 normal; 5-9 mild; 10-14 moderate; 15-21 severe): 7 Source: Developed by Drs. George Gupta, Melissa Kam, Dk Silverio and colleagues, with an educational eugene from [employer]. AUDIT C Alcohol Use Questionnaire (AUDIT-C) 1. How often do you have a drink containing alcohol?: Never Total Score: 0 Physical Exam Vital Signs: Last Vital Signs Pulse 75 10/09/23 10:31 BP 136/74 10/09/23 10:31 Pulse Ox 99 10/09/23 10:31 Oxygen Delivery Method Room Air 10/09/23 10:31 BMI result Body Mass Index 24.2 Balance: Negative Romberg: Negative Tandem Walk: Unable to Walk and Turn: Able to Rise from sit to stand: Able to Hearing Whisper test: Pass Assessment & Plan Assessment & Plan (1) Annual physical exam: Code(s): Z00.00 - Encounter for general adult medical examination without abnormal findings (2) DVT of popliteal vein: Code(s): I82.439 - Acute embolism and thrombosis of unspecified popliteal vein Plan: On oral anticoagulants. (3) Parkinsons disease: Code(s): G20 - Parkinson's disease Plan: Condition is being monitored by the neurologist. Continue current medications Plan As a bowel Quality Reporting (2019) Depression/Bipolar (159/160/161/177) PHQ-9: Total score: 10 Coding Level of Care Code Medicare First (G0438) Diagnoses Annual physical exam Z00.00 DVT of popliteal vein I82.439 Parkinsons disease G20 CPT Codes Advance Care Planning - Time spent: 1-15 minutes, not on file ([id number]) Advance Care Planning Advance Care Planning discussion: Exists, not on file Date of discussion: 10/09/23 Who was present: Patient Forms completed: Health Care Proxy and MOLST Time spent: 1-15 minutes, not on file Actual minutes spent: 5
[2023-10-09 10:31] VITALS: BP 136/74; PULSE 75; O2SAT 99; BMI 24.2
== END 2023-10-09 11:05 | disposition home or self-care (01) ==
PROVIDERS: PCP Internal Medicine; Visit Provider Internal Medicine
DX: Z00.00 Encounter for general adult medical examination without abnormal findings (principal); I82.439 Acute embolism and thrombosis of unspecified popliteal vein; G20.C Parkinsonism, unspecified
CPT/HCPCS: 1124F; G0438; G0439

== ENCOUNTER 2024-03-15 11:43 | Emergency (ER) | payer MEDICARE, MEDICAID, SELFPAY ==
--- NOTE | ~2024-03-15 | XR_ITS ---
EXAMINATION: XR CHEST CLINICAL INFORMATION: Weakness COMPARISON: CT chest 11/07/2022 TECHNIQUE: 2 views of the chest were obtained. FINDINGS: There is some minimal left basilar atelectasis in the lingula. No significant abnormality is noted involving the heart, lungs, mediastinum, bony thorax or soft tissues. XR/XR chest 2V IMPRESSION: Unremarkable examination.
--- NOTE | ~2024-03-15 | CT_ITS ---
EXAMINATION: CT HEAD WITHOUT CONTRAST CLINICAL INFORMATION: Fall COMPARISON: None TECHNIQUE: Contiguous axial imaging was performed from the skull base to vertex without intravenous administration of contrast. This CT examination was performed using dose optimization techniques as appropriate, variously including the following: *Automated exposure control *Adjustment of mA and/or kV according to patient size (this includes techniques or standardized protocols for targeted exams where dose is matched to indication/reason for exam; i.e. extremities or head) *Use of iterative reconstruction technique DLP: 1090 mGy-cm FINDINGS: There is no evidence of acute intracranial hemorrhage or territorial infarction. Chronic white matter small vessel ischemic changes. Cerebral atrophy. No abnormal mass effect or midline shift is seen. [place] to white matter differentiation is well preserved. No extra-axial fluid collections are identified. The ventricles are normal in size. There is no abnormal attenuation within the brain parenchyma. The osseous structures and soft tissues are normal. The mastoid air cells and visualized portions of the paranasal sinuses are well aerated. CT/CT cervical spine wo IV con IMPRESSION: 1. No acute intracranial pathology. 2. Chronic white matter small vessel ischemic changes. EXAMINATION: Noncontrast CT scan of the cervical spine. INDICATION: Fall COMPARISON: None. TECHNIQUE: Helical, multidetector axial images were obtained from the occiput to the upper thorax. Coronal and sagittal reformats of the cervical spine were provided for interpretation. DLP: 1090 mGy-cm FINDINGS: No acute fractures or dislocations of the cervical spine are seen. Straightening with slight reversal of the normal curvature centered at C5. Slight dextrocurvature of the mid to lower cervical spine. Multilevel degenerative changes. Anatomic alignment and positioning of the vertebral bodies and posterior elements is noted. The atlantoaxial joint and craniovertebral articulations are normal without evidence of subluxation. There is no prevertebral soft tissue swelling. The thyroid gland and visualized portions of the lung apices and mediastinum are unremarkable. IMPRESSION: 1. No acute visible fracture or dislocation. 2. Straightening with slight reversal of the normal curvature centered at C5. 3. Slight dextrocurvature of the mid to lower cervical spine. 4. Multilevel degenerative changes.
[2024-03-15 11:59] VITALS: BP 120/69; PULSE 77; RESP 16; TEMP 37.1; O2SAT 98; BMI 25.7
--- NOTE | 2024-03-15 12:01 | ED.GENADULT ---
HPI - General Adult General Chief complaint: General Medical Stated complaint: Parkinson's, falling, fatigued Time Seen by Provider: 03/15/24 13:10 Source: patient Mode of arrival: ambulatory Limitations: no limitations History of Present Illness ED Provider: Bebe CARDOSO HPI narrative: This is a 73 year old male with history of Parkinsons, BPH, anxiety and depression, DVT, HTN, GERD presenting with global weakness. He reports his Parkinsons symptoms have been becoming more severe over the past 1-2 weeks and he now has difficulty getting out of bed because of his weakness. He has a health aide come to the home once a week and is in the process of getting more time buyer help in the home but unsure of when that will be. He reports multiple falls, last was yesterday when he lost his balance but was able to reach for the wall and lower himself to the ground, denies head strike or LOC, not on blood thinners. Family reports they are unsure he is safe in the home by himself and are looking for possible short term rehab placement until they have time buyer help in the home. Reported that he sees double sometimes and this has been going on for a long time. Related Data Home Medications ?Medication ?Instructions ?Recorded ?Confirmed nkzxsotqumon-wiodxiza-zmiema tablet 1 tab PO DAILY 03/12/21 08/15/23 aspirin 81 mg tablet,delayed 81 mg PO DAILY 09/05/21 08/15/23 release Previous Rx's ?Medication ?Instructions ?Recorded blood pressure monitor #1 ea 09/05/21 sennosides 8.6 mg capsule (senna) 17.2 mg (2 x 8.6 mg) PO DAILY PRN 11/14/22 constipation 30 days #60 caps omeprazole 20 mg capsule,delayed 20 mg PO DAILY #90 caps 06/17/23 release acetaminophen 500 mg tablet 500 mg PO Q6H PRN fever or pain 07/25/23 (Tylenol Extra Strength) #14 tabs carbidopa 25 mg-levodopa 100 mg 1 tab PO TID #270 tabs 09/01/23 tablet carbidopa ER 50 mg-levodopa 200 mg 1 tab PO TID #270 tabs 09/01/23 tablet,extended release miscellaneous medical supply 1 ea miscellaneous DAILY falls #1 09/24/23 ea terazosin 5 mg capsule 5 mg PO BEDTIME 30 days #30 caps 12/04/23 Hospital Bed #1 applicator 12/05/23 Lift Recliner #1 applicator 12/05/23 commode #1 ea 12/16/23 raised toilet seat #1 ea 12/16/23 bupropion HCl 150 mg 24 hr tablet, 150 mg PO BID 90 days #180 tabs 12/30/23 extended release (Wellbutrin XL) diazepam 5 mg tablet 5 mg PO TID anxiety #90 tabs 03/11/24 Allergies Allergy/AdvReac Type Severity Reaction Status Date / Time alfuzosin AdvReac Intermediate Dizziness Verified 03/15/24 12:09 benztropine [Cogentin] AdvReac Intermediate Dizziness Verified 03/15/24 12:09 terazosin AdvReac Intermediate Dizziness Verified 03/15/24 12:09 Review of Systems Review of Systems: Yes all other systems are reviewed and are negative PMFSH Past Medical History Attestation statement: The following information was validated with the patient. Source: old records reviewed and nursing notes reviewed Medical History Low vitamin B12 level Parkinsons disease Left hip pain Sciatic pain Arthritis History of alcohol abuse Hx of subdural hematoma Tension headache Impotence Anxiety and depression Skin rash Peripheral neuropathy GERD (gastroesophageal reflux disease) Surgical History History of hydrocelectomy Hx of transurethral resection of prostate History of cholecystectomy (~02/2021) History of esophagogastroduodenoscopy (EGD) Hx of colonoscopy History of bilateral cataract extraction History of DVT (deep vein thrombosis) History of umbilical hernia repair History of inguinal hernia repair Family History Family History Father Diabetes H/O heart bypass surgery Depression Mother Heart problem Depression Brother Hypertension Maternal Uncle Alcoholism Substance use disorder Other Mental health disorder Social History Social History Household Members: Other Household Members Other:: roommate Housing: House Are you a primary child care team lead to a significant other at home: No Do you presently have visiting nurse or other home services: No Alcohol intake: former Year quit: 2014 Comment: previously medicated with tylenol and pyridium Patient Tobacco Use Status: Never used Tobacco Smoked in Last 30 Days: No e-Cigarette/Vaping Use: Never Used Use of substances other than those prescribed or required for medical reasons: No Advance Directives: Yes Advance Directives on File: Yes Advance Directives Date on File: 03/16/21 Do you have a plan to hurt others: No Plan service: No Current occupational status: disabled Cognitive needs: Yes Hearing needs: No Vision needs: Yes Physical Exam ED Vital Signs: Vital Signs - 24 hr 03/15/24 11:59 03/15/24 14:13 Temperature 98.8 F 98.1 F Pulse Rate 77 68 Respiratory Rate 16 16 Blood Pressure 120/69 122/67 Pulse Oximetry 98 98 Oxygen Delivery Method Room Air Room Air BMI result Body Mass Index 25.7 vss Appearance: Alert.? Oriented X3.? No acute distress.? Head: Normocephalic, atraumatic, no step-offs or deformities Eyes: Pupils equal, round and reactive to light.? Neck: Normal inspection.? Neck supple.? CVS: Normal heart rate and rhythm.? Pulses normal.? Respiratory: No respiratory distress.? Breath sounds normal.? Abdomen: Soft and nontender.? Skin: Skin warm and dry.? Normal skin color.? Normal skin turgor.? Extremities: No lower extremity edema.? No calf ttp. Global weakness. Fine tremors at rest noted in b/l upper extremities. Neuro: Oriented X 3.? No motor deficit.? No sensory deficit. CN 2-12 intact Course Course Course Narrative: This is an RME: Additional HPI, ROS, PE not included below will be deferred to primary provider. RME assessment and note performed by: Charlotte Haynes PA-C This is a 41-lwfb-tjo-male with a hx of vitamin B12 deficiency, Parkinson's on levodopa, arthritis, subdural hematoma, anxiety/depression, GERD, who presents to the ER, accompanied by his family, with complaints of worsening double vision for several weeks, but having increased difficulty with ADLs. Family reporting multiple falls over the last several weeks > last fall was yesterday from standing position. No headstrike, no LOC Plan: Labs, UA, CT head/neck Reevaluation(s) Reevaluation #1: Chest x-ray unremarkable. CBC with a normocytic anemia noted. Chemistry unremarkable. Normal CPK. Influenza, RSV and COVID negative. CT head and neck pending. Patient will see case management and physical therapy. Time: 14:54 Reevaluation #2: UA without infection. Chest x-ray unremarkable. CT head with no acute visible fracture dislocation straightening with slight reversal of the normal curvature, slight dextrocurvature of the mid to lower cervical spine. Degenerative changes in the cervical spine. CT head and brain no acute intracranial pathology. Chronic white matter small-vessel ischemic changes. At this time patient to be placed into observation to allow more time to be seen by Physical therapy and case management. At time observation started patient common cooperative no acute distress will continue to monitor Time: 15:41 Medical Decision Making Medical Decision Making [facility] Narrative: This is a 73 year old male with history of Parkinsons, BPH, anxiety and depression, DVT, HTN, GERD presenting with worsening weakness x 1-2 weeks. PE - global weakness. Fine tremors at rest noted in b/l upper extremities. Hx and PE concerning for progressing Parkinsons. Unlikely stroke, posterior stroke, ICH, ACS, dissection, arrhythmia. I do not suspect infection or electrolyte abnormalities. Plan - labs, imaging, urine Differential Diagnosis Differential Diagnoses: The differential diagnosis associated with the presentation includes Hx and PE concerning for progressing Parkinsons. Unlikely stroke, posterior stroke, ICH, ACS, dissection, arrhythmia. I do not suspect infection or electrolyte abnormalities. Admission/Observation Consideration of admission/observation: Escalation of care including admission/observation considered Lab Data [facility] Lab Attestation statement: I reviewed the patient's lab results. 03/15/24 12:36 03/15/24 12:36 Labs: Lab Results 03/15/24 03/15/24 Range/Units 12:36 15:08 WBC 6.8 (4.8-10.8) X10*3/uL RBC 4.71 (4.60-5.80) X10*6/uL Hgb 13.7 L (14.0-18.0) g/dl Hct 41.2 L (42.0-52.0) % MCV 87.5 (80.0-98.0) fL MCH 29.1 (27.0-33.0) pg MCHC 33.3 (31.0-36.0) g/dl RDW 12.7 (11.0-16.0) % Plt Count 171 (160-400) X10*3/uL MPV 11.5 (9.4-12.4) fL Immature Gran % (Auto) 0.1 (0.0-0.4) % Neut % (Auto) 68.9 (45-73) % Lymph % (Auto) 21.4 (20-40) % Saunders % (Auto) 6.2 (2-11) % Eos % (Auto) 3.0 (0-4) % Baso % (Auto) 0.4 (0-2) % Lymph # (Auto) 1.5 (1.2-4.9) X10*3/uL Saunders # (Auto) 0.4 (0.1-1.2) X10*3/uL Eos # (Auto) 0.2 (0.0-0.4) X10*3/uL Baso # (Auto) 0.0 (0.0-0.2) X10*3/uL Abs Immat Gran (auto) 0.01 (0.00-0.03) X10*3/uL Absolute Neuts (auto) 4.7 (2.0-8.3) x10*3/uL Absolute Nucleated RBC 0.000 (0.0-0.012) X10*3/uL Nucleated RBC % (auto) 0.0 (0.0-0.2) /100WBC Sodium 141 (135-145) mmol/L Potassium 4.4 (3.3-5.1) mmol/L Chloride 106 (96-108) mmol/L Carbon Dioxide 26 (22-29) mmol/L Anion Gap 13 (12-20) BUN 16 (9-16) mg/dL Creatinine 0.88 (0.5-1.4) mg/dL Estim Creat Clear Calc 79.4 Estimated GFR > 60 Random Glucose 96 (60-115) mg/dL Calcium 9.4 (8.4-10.2) mg/dL Magnesium 2.1 (1.6-2.6) mg/dL Total Bilirubin 0.6 (0.0-1.0) mg/dL Direct Bilirubin 0.2 (0.0-0.5) mg/dL AST 9 (5-37) U/L ALT < 5 (0-40) U/L Alkaline Phosphatase 59 (39-117) U/L Total Creatine Kinase 29 L (38-174) U/L Troponin I High Sens 3.7 (<3.5-35.0) ng/L Total Protein 6.2 L (6.5-8.0) g/dL Albumin 3.9 (3.5-5.0) g/dL Urine Color Dark Yellow Urine Appearance Clear Urine pH 6.0 (5.0-9.0) Ur Specific [place] 1.025 (1.005-1.025) Urine Protein Trace (Neg-Trace) mg/dL Urine Glucose (UA) Negative (Negative) mg/dL Urine Ketones Trace (Negative) mg/dL Urine Blood Negative (Negative) Urine Nitrite Negative (Negative) Ur Leukocyte Esterase Negative (Negative) Influenza Type A (PCR) NEGATIVE (Negative) Influenza Type B (PCR) NEGATIVE (Negative) RSV RNA Qual (PCR) NEGATIVE (Negative) SARS-CoV-2 RNA (RT-PCR) NEGATIVE (Negative) Independent Interpretation I performed an independent interpretation of an: Plain X-Ray (XR/XR chest 2V IMPRESSION: Unremarkable examination.) and CT Scan Radiology Impression Discussion of test interpretation with radiology: I have reviewed the radiologist's reading. External Record Review External record reviewed: Inpatient record, Office record, Outpatient record, Prior outpatient labs, Prior outpatient radiology, Primary care record and Outside ED record Chronic Conditions Patient?s care impacted by: Other ( Parkinsons, BPH, anxiety and depression, DVT, HTN, GERD) Critical Care Time Critical Care Time Critical Care Time: No Discharge Plan Discharge Clinical Impression: Physical deconditioning, Parkinson disease, Falls frequently Patient Disposition: Still a Patient Prescriptions: No Action omeprazole 20 mg capsule,delayed release(DR/EC) 20 mg PO DAILY Qty: 90 3RF carbidopa-levodopa 25-100 mg tablet 1 tab PO TID Qty: 270 6RF carbidopa-levodopa 50-200 mg tablet extended release 1 tab PO TID Qty: 270 3RF miscellaneous medical supply Misc 1 ea miscellaneous DAILY Qty: 1 0RF Rx Instructions: Bed rails terazosin 5 mg capsule 5 mg PO BEDTIME 30 Days Qty: 30 1RF (DME) Hospital Bed 0 .Route .MEDSUPPLY Qty: 1 0RF Rx Instructions: As directed ([facility]) Lift Recliner 0 .Route .MEDSUPPLY Qty: 1 0RF Rx Instructions: As directed (DME) commode See Rx Instructions .Route .MEDSUPPLY Qty: 1 0RF Rx Instructions: As directed (DME) raised toilet seat See Rx Instructions .Route .MEDSUPPLY Qty: 1 0RF Rx Instructions: As directed bupropion HCl [Wellbutrin XL] 150 mg tablet extended release 24 hr 150 mg PO BID 90 Days Qty: 180 0RF diazepam 5 mg tablet 5 mg PO TID Qty: 90 0RF foadgwloihth-ftdnxjdi-bqvjom Tablet 1 tab PO DAILY acetaminophen [Tylenol Extra Strength] 500 mg tablet 500 mg PO Q6H PRN (Reason: fever or pain) Qty: 14 0RF aspirin 81 mg tablet,delayed release (DR/EC) 81 mg PO DAILY (DME) blood pressure monitor Kit See Rx Instructions .Route Qty: 1 0RF Rx Instructions: As directed senna 8.6 mg capsule 17.2 mg PO DAILY PRN (Reason: constipation) 30 Days Qty: 60 2RF Rx Instructions: Take 2 capsules by mouth at bedtime as needed for constipation Print Language: Maori
--- NOTE | 2024-03-15 12:05 | ECG_ITS ---
Test Reason : WEAKNESS Blood Pressure : / mmHG Vent. Rate : 072 BPM Atrial Rate : 072 BPM P-R Int : 122 ms QRS Dur : 078 ms QT Int : 362 ms P-R-T Axes : 071 -16 019 degrees QTc Int : 396 ms Normal sinus rhythm Normal ECG When compared with ECG of 25-JUL-2023 17:12, No significant change was found Referred By: Charlotte Haynes Electronically Signed By:CAROLINA DUFFY
[2024-03-15 12:44] LABS: MANUAL DIFF FLAG NO
[2024-03-15 12:45] LABS: Basophils Percent Auto 0.4 % (0-2); Eosinophils Absolute Auto 0.2 X10*3/uL (0.0-0.4); Hematocrit 41.2 % (42.0-52.0); Hemoglobin 13.7 g/dl (14.0-18.0); Imm Gran Abs Auto 0.01 X10*3/uL (0.00-0.03); Imm Gran Pct Auto 0.1 % (0.0-0.4); Lymphocytes Absolute Auto 1.5 X10*3/uL (1.2-4.9); Lymphocytes Percent Auto 21.4 % (20-40); Mean Corpuscular HGB Conc 33.3 g/dl (31.0-36.0); Mean Corpuscular Hemoglobin 29.1 pg (27.0-33.0); Mean Corpuscular Volume 87.5 fL (80.0-98.0); Mean Platelet Volume 11.5 fL (9.4-12.4); Monocytes Absolute Auto 0.4 X10*3/uL (0.1-1.2); Monocytes Percent Auto 6.2 % (2-11); Neutrophils Absolute Auto 4.7 x10*3/uL (2.0-8.3); Neutrophils Percent Auto 68.9 % (45-73); Platelet Count 171 X10*3/uL (160-400); Red Blood Count 4.71 X10*6/uL (4.60-5.80); Red Cell Distribution Width 12.7 % (11.0-16.0); White Blood Count 6.8 X10*3/uL (4.8-10.8)
[2024-03-15 13:06] LABS: Troponin-I High Sensitivity 3.7 ng/L (<3.5-35.0)
[2024-03-15 13:15] LABS: Alanine Aminotransferase < 5 U/L (0-40); Albumin Level 3.9 g/dL (3.5-5.0); Alkaline Phosphatase 59 U/L (39-117); Anion Gap 13 (12-20); Aspartate Amino Transferase 9 U/L (5-37); Bilirubin Direct 0.2 mg/dL (0.0-0.5); Bilirubin Total 0.6 mg/dL (0.0-1.0); Blood Urea Nitrogen 16 mg/dL (9-16); Calcium 9.4 mg/dL (8.4-10.2); Carbon Dioxide 26 mmol/L (22-29); Chloride 106 mmol/L (96-108); Creatinine Clr Calc Pharmacy 79.4; Estimated Glomerular Filt Rate > 60; Glucose Random 96 mg/dL (60-115); Magnesium 2.1 mg/dL (1.6-2.6); Potassium 4.4 mmol/L (3.3-5.1); Sodium 141 mmol/L (135-145); Total Protein 6.2 g/dL (6.5-8.0)
[2024-03-15 13:23] LABS: Influenza A PCR NEGATIVE (Negative); Influenza B PCR NEGATIVE (Negative); Resp Syncy Virus RNA Qual PCR NEGATIVE (Negative); SARS COV2 PCR INHOUSE NEGATIVE (Negative)
[2024-03-15 14:13] VITALS: BP 122/67; PULSE 68; RESP 16; TEMP 36.7; O2SAT 98
[2024-03-15 15:22] LABS: Appearance Urine Clear; Color Urine Dark Yellow; Glucose Urine UA Negative (Negative); Leukocyte Esterase Urine Negative (Negative); Nitrite Urine Negative (Negative); Specific Gravity - Urine 1.025 (1.005-1.025); Urine Blood Negative (Negative); Urine Ketones Trace mg/dL (Negative); Urine Protein Trace mg/dL (Neg-Trace)
--- NOTE | 2024-03-15 16:06 | MHC.CM.ED ---
Received case management consult. Patient has a history of Parkinson's and came to ER due to falls. Physical therapy eval is pending. Continue to monitor for d/c needs.
--- NOTE | 2024-03-15 18:41 | PC.NURSE ---
Patient needs 1A w/ walker to stand and urinate. Med rec complete, provider Aramis asked to order meds.
[2024-03-15 18:45] VITALS: BP 133/63; PULSE 70; RESP 16; O2SAT 97
--- NOTE | 2024-03-15 19:53 | PC.NURSE ---
Report given to Niya in overflow, all questions answered, patient to go to overflow once bed available.
--- NOTE | 2024-03-15 21:07 | PC.NURSE ---
pt from main ed, resting quietly on the bed, tv on, no s/s of any acute distress, will cont plan of acute
--- NOTE | 2024-03-15 21:42 | PC.NURSE ---
pt requested his night time meds. explained, to pt, i would have to get the provider to order them,sent Aramis VIDAL, a message to please ordet the medicine.
[2024-03-15 21:56] VITALS: BP 165/74; PULSE 65; RESP 14; TEMP 36.6; O2SAT 98
--- NOTE | 2024-03-15 23:21 | PC.NURSE ---
report given to oncoming nurse, all questions answered
[2024-03-16] MEDS: Carbidopa/Levodopa CR 50/200 TABLET.ER 1 TAB PO ×4 (02:18→21:40)
[2024-03-16] MEDS: Carbidopa/Levodopa 25/100 TABLET 1 TAB PO ×4 (02:18→19:49)
--- NOTE | 2024-03-16 02:26 | PC.NURSE ---
Pt. home medications ordered around 02:00AM; Pt. took his home dose of carbidopa around 02:18AM. Did not want Valium at this time. Pt. was able to take pills one at a time whole with water.
[2024-03-16 04:55] VITALS: BP 159/78; PULSE 67; RESP 18; TEMP 36.9; O2SAT 96
--- NOTE | 2024-03-16 07:33 | PC.NURSE ---
assumed care of pt at 0700, delay in initial home meds - given around 0200, ok per pharmacy to take meds at 0900, pt resting quietly, eyes closed. PT rec STR, 1 assist to stand w walker. fall precautions in place.
[2024-03-16 08:15] VITALS: BP 133/67; PULSE 93; RESP 18; TEMP 37.2; O2SAT 95
[2024-03-16] MEDS: buPROPion HCl XL 150 MG TAB.ER.24H PO (08:32)
[2024-03-16] MEDS: Multivitamin TABLET 1 TAB PO (08:32)
[2024-03-16] MEDS: Aspirin Enteric Coated 81 MG TABLET.DR PO (08:32)
[2024-03-16] MEDS: Acetaminophen 325 MG TABLET 650 MG PO ×2 (09:00→20:33)
[2024-03-16] MEDS: diazePAM 5 MG TABLET PO ×3 (09:01→20:33)
--- NOTE | 2024-03-16 09:19 | PHA.MEDREC ---
Pharmacy Consult ? Medication Reconciliation Pharmacy has completed the medication reconciliation.Reviewed med rec done by nursing and spoke to patient at bed side. He confirmed all his medications, matching previous med rec, and requested his carbidopa-levodopa be alternated every three hours beginning at 0700.
--- NOTE | 2024-03-16 10:43 | PC.NURSE ---
Addendum entered by Estephania Seo 03/16/24 10:55: pt ate 90% of breakfast, required some assistance cutting food. Original Note: pt medicated per OCT. took meds whole, one at a time w sips of water.
--- NOTE | 2024-03-16 12:26 | MHC.CM.ED ---
Addendum entered by Naye Plata 03/16/24 14:45: Spoke with Irene from [facility] for [facility]. She is in the process of reviewing but feels they will be able to offer a bed tomorrow 03/17. Level 1 and MDS completed by T/W. Will send to [facility] when there is confirmation of bed offer. Original Note: Received case management consult overnight. Physical therapy eval completed. Short term rehab is recommended. Met with patient and daughter, Poly. Patient lives with a friend, ambulates with a cane/walker/wheelchair and has a home health aide through [facility]. PCP verfied. Patient has a history of Parkinson's. Referral made to all 3 acute rehabs. No bed offers at this time. Poly requested referral to [facility] but no bed available. Patient and Poly agreeable to referral being broadcasted in [facility]. [facility] is now 1st choice. Patient lives in [place]. Poly lives in [place]. Continue to monitor for d/c needs.
--- NOTE | 2024-03-16 14:10 | PC.NURSE ---
delay in pt medication d/t not in pyxis, pharmacy notified.
[2024-03-16 15:58] VITALS: BP 165/75; PULSE 67; RESP 20; TEMP 37.1; O2SAT 97
[2024-03-16 19:01] VITALS: BP 143/73; PULSE 66; RESP 18; TEMP 36.7; O2SAT 96
--- NOTE | 2024-03-16 19:08 | MHC.EDTECH ---
Inc therefore milton changed and bed pad
--- NOTE | 2024-03-16 19:45 | PC.NURSE ---
Assumed care of pt. Pt lying on stretcher, no acute distress at this time. Preparing for night med administration and educated pt on plan of care.
[2024-03-17] MEDS: Omeprazole 20 MG CAPSULE.DR PO (05:41)
[2024-03-17 06:00] VITALS: BP 150/67; PULSE 69; RESP 16; TEMP 36.9; O2SAT 96
[2024-03-17] MEDS: Carbidopa/Levodopa 25/100 TABLET 1 TAB PO ×2 (07:20→13:50)
[2024-03-17] MEDS: Acetaminophen 325 MG TABLET 650 MG PO (07:57)
[2024-03-17] MEDS: diazePAM 5 MG TABLET PO (09:26)
[2024-03-17] MEDS: Multivitamin TABLET 1 TAB PO (09:26)
[2024-03-17] MEDS: buPROPion HCl XL 150 MG TAB.ER.24H PO (09:26)
[2024-03-17] MEDS: Aspirin Enteric Coated 81 MG TABLET.DR PO (09:26)
--- NOTE | 2024-03-17 10:10 | MHC.CM.ED ---
Addendum entered by Naye Plata 03/17/24 11:11: Patient can leave at 1pm. Carlos HAIDER booked. Med [facility] with chart. Patient, daughter PolyJosh RN and Karley VIDAL aware. Original Note: Patient remains in ER overflow. [facility] is able to offer a bed. MDS and Level 1 sent to [facility]. Waiting from [facility] leveling from [facility] before patient will be able to transfer to SNF. Continue to monitor for d/c needs.
[2024-03-17] MEDS: Carbidopa/Levodopa CR 50/200 TABLET.ER 1 TAB PO (10:47)
== END 2024-03-17 14:12 ==
PROVIDERS: Physician Assistant Medical; Emergency Provider Emergency Medicine; PCP Internal Medicine
DX: G20.A1 Parkinson's disease without dyskinesia, without mention of fluctuations (principal); R26.2 Difficulty in walking, not elsewhere classified; R53.83 Other fatigue; R51.9 Headache, unspecified; M54.2 Cervicalgia; Z03.818 Encounter for observation for suspected exposure to other biological agents ruled out; Z79.899 Other long term (current) drug therapy; Z91.81 History of falling
CPT/HCPCS: 0241U; 70450; 71046; 72125; 80048; 80076; 81003; 82550; 83735; 84484; 85025; 93005; 97162; 99285

== ENCOUNTER → 2024-03-15 12:05 | Outpatient (BNV) | payer MEDICARE, MEDICAID, SELFPAY | PROVIDERS: Emergency Provider Emergency Medicine; PCP Internal Medicine; Visit Provider Internal Medicine | DX: R53.1 Weakness (principal) | CPT/HCPCS: 93010 ==